=== PATIENT | female | born 1970 | race Caucasian/White ===

== ENCOUNTER 2020-03-12 07:00 | Day surgery (SDC) | payer OTHER ==
[2020-03-12] MEDS ORDERED: Ringers Lactate 1,000 ML IV ONE (07:29)
[2020-03-12] MEDS ORDERED: MIDAZOLAM HCL 2 MG/2 ML INJ ONE (08:47)
[2020-03-12] MEDS ORDERED: propofoL 200 MG/20 ML VIAL IV ONE (08:47)
[2020-03-12] MEDS ORDERED: FENTANYL CITR 100 MCG/2 ML ONE (08:47)
[2020-03-12] MEDS ORDERED: LIDOCAINE 2% MPF 5 ML VIAL ONE (08:48)
[2020-03-12] MEDS ORDERED: dexAMETHasone 10 MG/ML VIAL ONE (08:48)
[2020-03-12] MEDS ORDERED: ROCURONIUM 50 MG/5 ML VIAL IV ONE (08:48)
[2020-03-12] MEDS: LIDOCAINE 1% W/EPI 1:100,000 MDV 20 ML VIAL ONE ×2 (09:27→10:00)
[2020-03-12] MEDS: EPINEPHRINE/PF 1 MG/ML AMP ONE ×2 (09:27→10:10)
[2020-03-12] MEDS ORDERED: KETOROLAC 30 MG/ML INJ ONE (10:48)
[2020-03-12] MEDS ORDERED: ONDANSETRON 4 MG/2 ML VIAL ONE (10:57)
[2020-03-12] MEDS ORDERED: PROMETHAZINE INJ 25 MG/ML AMP ONE (11:17)
[2020-03-12 11:40] VITALS: TEMP 97.5
[2020-03-12] MEDS ORDERED: IBUPROFEN 400 MG TAB ONE (12:07)
--- NOTE | 2020-03-12 12:10 | OP ---
Date of Procedure: 03/12/2020 Surgeon: Ina Kerr MD Preoperative Diagnosis: Right vocal cord polyp. Postoperative Diagnosis: Right vocal cord polyp. Procedure: Direct laryngoscopy with removal of vocal polyp and repair via a tissue flap. Indication For Procedure: Ms. 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 She c ontinues to smoke, but due to symptoms of airway obstruction, I recommended removal of the polyp. Th e risks, benefits, and alternatives to the procedure were discussed with the patient who agreed to pr oceed. The patient was brought to the operating room. She was placed under general anesthesia via o ral endotracheal tube. A gauze was applied to her upper gingiva as she was edentulous of her maxilla . The Nela-Ber laryngoscope fitted with a 15-degree telescope was used to perform a direct laryn goscopy. The vallecula, epiglottis, piriform sinus, and posterior pharyngeal wall were all unremarka ble. The vocal cords were obscured by a large round smooth polyp appearing mass. After placing the laryngoscope into suspension, suction and laryngeal alligator were used to carefully probe and feel a round the polyp confirming its attachment on the superior surface of the right true vocal fold. A sm all amount of lidocaine with epinephrine was injected at the attachment point via a laryngeal syringe . The posterior aspect of the polyp was grasped and a straight and curved laryngeal scissors were us ed to gently dissect the polyp from its superior attachment point. The polyp contents were carefully removed with a small cup forceps, creating a tissue flap from the inferiormost aspect of the polyp t o mucosal surface. This was gently laid across the defect. Application of an epinephrine-soaked ple dget was used to provide hemostasis. Photodocumentation was obtained. The subglottis, glottis, and supraglottic areas were suctioned from blood and secretions. Instrumentation was all removed. The p atient's mouth was reinspected. There was no additional damage to the patient's lips, gingiva, or to ngue, or lower teeth. The previously noted laceration of the right upper gingiva was hemostatic. Th e patient was then returned to care of Anesthesia for awakening and extubation in the operating room. Disposition: The patient will be discharged home with strict voice rest and is strongly encouraged f or complete tobacco cessation. We discussed that continued tobacco use will almost certainly result in complications and recurrence of her laryngeal polyp. CARMITA/SILVER Voice ID: [id number] Report ID: [id number]
[2020-03-12 13:15] VITALS: BP 127/67; O2SAT 97
--- OUTSIDE RECORDS SUMMARY | 2020-03-17 18:23 | XMS REPORT | Continuity of Care Document ---
:1970 Author Organization [facility] t Address [address] [place] [address] Care Team Providers Name Role Phone Kenzie Moreno MD Attending Clinician Antolin THOMAS, K.H. Attending Clinician Problems This patient has no known problems. Allergies, Adverse Reactions, Alerts This patient has no known allergies or adverse reactions. Medications This patient has no known medications. Procedures This patient has no known procedures. Encounters Start End Encounter Admission Attending Care Care Encounter Source Date/Time Date/Time Type Type Clinicians Facility Department ID 2020-03-15 2020-03-15 Refill FLORENCIO Moreno [id number] 00:00:00 00:00:00 [employer] [id number] [place] [id number] [facility] [phone] nal 044 Office [address] 2020-02-27 2020-02-27 Office FLORENCIO Dangelo [id number] 10:59:25 11:39:08 Visit Montserrat Wood [id number] [place] [id number] [facility] [phone] nal 059 Building Results This patient has no known results.
--- OUTSIDE RECORDS SUMMARY | 2020-03-17 18:23 | XMS REPORT | Summary of Care ---
:1970 Author Organization [facility] Address [address] [place] [address] Care Team Providers Name Role Phone Kenzie Moreno MD Primary Care Provider Encounter Details Date Type Department Care Team Description 12/25/2019 Prep For Surgery [facility]- Gia Mcginnis, Screening for [facility] colorectal cancer [address] [address] [address] [facility] ([address] [facility] [address] [place] [address] [phone] Allergies No Known Allergiesdocumented as of this encounter (statuses as of 12/25/2019) Medications Medication Sig Dispensed Refills Start Date End Date Status calcipotriene (DOVONEX) Apply to area(s) 60 g 2 11/24/19 20 Active 0.005 % 2 (two) times creamIndications: daily. Psoriasis telmisartan 40 mg Take 1 tablet by 30 tablet 5 11/24/2019 Active tabletIndications: mouth daily. Essential hypertension citalopram 10 mg Take 1 tablet by 30 tablet 2 11/24/2019 Active tabletIndications: mouth daily. Anxiety and depression peg-electrolyte soln Take 4,000 mL by 4000 mL 0 12/25/2019 Active [id number] -5.86 mouth gram SEE-INSTRUCTIONS. solutionIndications: Take as directed Screening for colorectal cancer documented as of this encounter (statuses as of 12/25/2019) Active Problems Problem Noted Date Abnormal LFTs 12/01/2019 Mixed hyperlipidemia 12/01/2019 Abnormal EKG 11/25/2019 Tobacco dependence 11/24/2019 Obesity (BMI 30-39.9) 06/11/2016 HTN (hypertension) Anxiety and depression documented as of this encounter (statuses as of 12/25/2019) Social History Tobacco Use Types Packs/Day Years Used Date Current Every Day Smoker Cigarettes 1 15 Smokeless Tobacco: Never Used Alcohol Use Drinks/Week oz/Week Comments Not Currently Sex Assigned at Date Recorded Not on file Job Start Date Occupation Industry Not on file Not on file Not on file Travel History Travel Start Travel End No recent travel history available. COVID-19 Exposure Response Date Recorded In the last month, have you been in contact with No / Unsure 12/25/2019 2:09 PM CDT someone who was confirmed or suspected to have Coronavirus / COVID-19? documented as of this encounter Last Filed Vital Signs Not on filedocumented in this encounter Plan of Treatment Date Type Specialty Care Team Description 01/02/2020 Cable Television Technician Visit [facility]iology [facility], [facility] Vascular Room 1 - 01/05/2020 Laboratory Only Cardiology Pc, Adc Echo Room 1 - 01/05/2020 Office Visit Family Medicine Marilu Moreno MD [address] [phone] 04/30/2020 Office Visit Cardiology Montserrat Dangelo MD [address] [phone] Health Maintenance Due Date Last Done Comments PAP SMEAR 1989 Breast Cancer Screening 2008 (MAMMOGRAM) COLONOSCOPY 2018 INFLUENZA VACCINE (#1) 2020 DTaP,Tdap,and Td Vaccines (1 02/24/2020 Pos tponed from 09/19/1979 - Tdap) (Alternative Edil delines) PNEUMOCOCCAL 0-64 YEARS 02/24/2020 Postpone d from 1974 COMBINED SERIES (1 of 1 - (Alter chene[place] Guidelines) PPSV23) Zoster Recombinant Vaccine 02/24/2020 Postp oned from 2018 (SHINGRIX) (1 of 2) (Alternative Guidelines) Depression Screening 11/23/2020 11/24/2019, 11/24/2019 documented as of this encounter Results Not on filedocumented in this encounter Visit Diagnoses Diagnosis Screening for colorectal cancer - Primar y Special screening for malignant neoplasm s, colon documented in this encounter Insurance Payer Benefit Plan / Subscriber ID Effective Dates Phone Addre ss Type Group [facility] [id number] [facility] PPO t S documented as of this encounter
--- OUTSIDE RECORDS SUMMARY | 2020-03-17 18:23 | XMS REPORT | Summary of Care ---
:1970 Author Organization [facility] Address [address] [place] [address] Care Team Providers Name Role Phone Kenzie Moreno MD Primary Care Provider Reason for Visit Reason Comments ULTRASOUND (Routine) Status Reason Specialty Diagnoses / Procedures Referred By C ontact Referred To Contact Closed Cardiology Diagnoses Stenosis of carotid artery, unspecified laterality Josh Wondiful Procedures CAROTID DUPLEX BILATERAL BY VASCULAR LAB MD Kenzie [address] [place] [address] [facility] [place] [address] Phone: Encounter Details Date Type Department Care Team Description 01/02/2020 Hoof And Shoe Inspector Visit [facility] Montserrat Dangelo MD [address] [address] Stenosis of carotid Cardiology- [facility], [facility] Vascular Room 1 - artery, unspecified [address] [place] [address] Drive, [address] [place] [address] Allergies No Known Allergiesdocumented as of this encounter (statuses as of 01/02/2020) Medications Medication Sig Dispensed Refills Start Date [...] as of this encounter (statuses as of 01/02/2020) Active Problems Problem Noted Date Screening for colorectal cancer 12/26/2019 Overview: Added automatically from request for jacobo carr [id number] Abnormal LFTs 12/01/2019 Mixed hyperlipidemia 12/01/2019 Abnormal EKG 11/25/2019 Tobacco dependence 11/24/2019 Obesity (BMI 30-39.9) 06/11/2016 HTN (hypertension) Anxiety and depression documented as of this encounter (statuses as of 01/02/2020) Social History Tobacco Use Types Packs/Day Years [...] been in contact with No / Unsure 01/02/2020 9:22 AM CDT someone who was confirmed or suspected to have Coronavirus / COVID-19? documented as of this encounter Last Filed Vital Signs Not on filedocumented in this encounter Plan of Treatment Date Type Specialty Care Team Description 01/05/2020 Office Visit Family Medicine Rema Moreno MD [address] [facility] [place] [phone] 01/05/2020 Office Visit Cardiology Montserrat Dangelo MD [address] [facility] [address] [place] [address] 01/05/2020 Laboratory Only Cardiology Pc, Adc Echo Room 1 - 01/08/2020 Laboratory Only Clinical Medical Only, Adc Test Laboratory 01/09/2020 Hospital Encounter Surgery Vivian Gould Scre ening for colorectal cancer [address] [facility] [address] [place] [address] [phone] 01/09/2020 Anesthesia Event Surgery Barney Nioclas, [address] [phone] 01/09/2020 Surgery Surgery Vivian Gould, COLONOSCOP Y [address] [facility] [address] [place] [address] [phone] 02/03/2020 Office Visit Obstetrics & AdumCelia MD Gynecology [address] [place] [address] 04/30/2020 Office Visit Cardiology Montserrat Dangelo MD [address] [facility] [address] [place] [address] Health Maintenance Due Date Last Done Comments PAP SMEAR 1989 Breast Cancer Screening 2008 (MAMMOGRAM) COLONOSCOPY 2018 INFLUENZA VACCINE (#1) 2020 DTaP,Tdap,and Td Vaccines (1 02/24/2020 Pos tponed from 09/19/1979 - Tdap) (Alternative Edil delines) PNEUMOCOCCAL 0-64 YEARS 02/24/2020 Postpone d from 1974 COMBINED SERIES (1 of 1 - (Alter k[place] Guidelines) PPSV23) Zoster Recombinant Vaccine 02/24/2020 Postp oned from 2018 (SHINGRIX) (1 of 2) (Alternative Guidelines) Depression Screening 11/23/2020 11/24/2019, 11/24/2019 documented as of this encounter Results Not on filedocumented in this encounter Visit Diagnoses Diagnosis Stenosis of carotid artery, unspecified laterality documented in this encounter Insurance Payer Benefit Plan / Subscriber ID Effective Dates Phone Addre ss Type Group [facility] [id number] [facility] PPO t S documented as of this encounter
--- OUTSIDE RECORDS SUMMARY | 2020-03-17 18:23 | XMS REPORT | Summary of Care ---
:1970 Author Organization [facility] Address [address] [place] [id number] Care Team Providers Name Role Phone Kenzie Moreno MD Primary Care Provider Reason for Visit Reason Comments New Patient HEMORRHOIDS Referral/consult (Routine) Status Reason Specialty Diagnoses / Referred By Referred To Procedures Contact Contact Authorized Surgery Diagnoses Screening for colorectal cancer Hemorrhoids, unspecified hemorrhoid type Rema Moreno Lau rel, Procedures CONSULT/REFERRAL GENERAL SURGERY MD WILLIAM Espino [address] [place] [address] [place] [id number] Hair 2.100 Phone: Kenrick Grier Denisse [phone] Fax: Encounter Details Date Type Department Care Team Description 12/25/2019 Office Visit [facility] Surgical Vivian Gould, En counter for Specialties - [place] on screening colonoscopy [address], [address] [place] [address] (Primary Dx) [address] [place], [place] Hair 2.100 [id number] [place], [place] [phone] Allergies No Known Allergiesdocumented as of this encounter (statuses as of 12/25/2019) Medications Medication Sig Dispensed Refills Start Date End Date Status calcipotriene (DOVONEX) Apply to 60 g 2 11/24/2019 Active 0.005 % area(s) 2 (two) creamIndications: times daily. Psoriasis telmisartan 40 mg Take 1 tablet by 30 tablet 5 11/24/2019 Active tabletIndications: mouth daily. Essential hypertension citalopram 10 mg Take 1 tablet by 30 tablet 2 11/24/2019 Active tabletIndications: mouth daily. Anxiety and depression documented as of this [...] of this encounter Last Filed Vital Signs Vital Sign Reading Time Taken Comments Blood Pressure 132/80 12/25/2019 2:09 PM CDT Pulse 79 12/25/2019 2:09 PM CDT Temperature 37.1 C (98.8 F) 12/25/2019 2:09 PM CDT Respiratory Rate 18 12/25/2019 2:09 PM CDT Oxygen Saturation - - Inhaled Oxygen Concentration - - Weight 82.5 kg (181 lb 12.8 oz) 12/25/2019 2:09 PM CDT Height - - Body Mass Index 32.2 11/24/2019 11:32 AM CDT documented in this encounter Progress Notes Liza Garcia - 12/25/2019 2:00 PM CDT [facility] NOTE Date of Service: 12/25/2019 14:45 CC: Screening colonoscopy initial visit SUBJECT: Sommer Gutierrez is a 49 year old female with a PMH of anxiety, depression, HTN, and HLD who presents to clinic today for a screening colonoscopy pre-operative assessment. The patient denies any concerning bowel symptoms outside of occasional constipation and hemorrhoids.Blood is present in her stool approximately 1x per month only during hemorrhoid flares. The patient denies unintentional weight loss, fever, chills, N/V, abdominal pain, diarrhea, melena, or change in stool caliber. She has no knowledge of a family history of Chron's disease, ulcerative colitis, or colon cancer. CURRENT MEDICATIONS Prior to Admission medications Medication Sig Start Date End Date Taking? Authorizing Provider calcipotriene (DOVONEX) 0.005 % cream Apply to area(s) 2 (two) times daily. 11/24/19 Rema Moreno MD citalopram 10 mg tablet Take 1 tablet by mouth daily. 11/24/19 Rema Moreno MD telmisartan 40 mg tablet Take 1 tablet by mouth daily. 11/24/19 Rema Moreno MD All current in-house medications reviewed per EMR. ALLERGIES No Known Allergies PAST SURGICAL HISTORY Past Surgical History: Procedure Laterality Date SECTION HYSTERECTOMY PAST MEDICAL HISTORY Past Medical History: Diagnosis Date Abnormal EKG 11/25/2019 Anxiety and depression Cardiac arrest during delivery of child HTN (hypertension) Hypercholesterolemia Mixed hyperlipidemia 12/01/2019 Peptic ulcer disease FAMILY MEDICAL HISTORY Non-contributory to this encounter of SOCIAL HISTORY Social History Socioeconomic History Marital status: Spouse name: Not on file Number of children: Not on file Years of education: Not on file Highest education level: Not on file Occupational History Not on file Social Needs Financial resource strain: Not on file Food insecurity: Worry: Not on file Inability: Not on file Transportation needs: Medical: Not on file Non-medical: Not on file Tobacco Use Smoking status: Current Every Day Smoker Packs/day: 1.00 Years: 15.00 Pack years: 15.00 Types: Cigarettes Smokeless tobacco: Never Used Substance and Sexual Activity Alcohol use: Not Currently Drug use: Never Sexual activity: Not Currently Lifestyle Physical activity: Days per week: Not on file Minutes per session: Not on file Stress: Not on file Relationships Social connections: Talks on phone: Not on file Gets together: Not on file Attends jew service: Not on file Active member of club or organization: Not on file Attends meetings of clubs or organizations: Not on file Relationship status: Not on file Intimate partner violence: Fear of current or ex partner: Not on file Emotionally abused: Not on file Physically abused: Not on file Forced sexual activity: Not on file Other Topics Concern Not on file Social History Narrative Not on file REVIEW OF SYSTEMS Constitutional: no fever, chills HEENT: No headache, no vision changes CV: No chest pain Resp: No cough, no shortness of breath GI: No nausea, vomiting, diarrhea, constipation Neuro: No numbness, tingling Skin: No rash Endo: No heat or cold intolerance Musculoskeletal: No joint pain Heme: No easy bruising PREOPERATIVE RISK ASSESSMENT Diabetes Mellitus: negative Current Smoker w/ in 1 year: Yes (1ppd for 25 years) Functional Health Status: independent COPD: No Hypertension requiring meds: Yes, was prescribed a medication for HTN but was unable to have it filled Cancer: No >10% loss of body weight last 6 months: No Bleeding Disorders: No, not taking any blood thinners either PHYSICAL EXAM (-)=Negative,(+)=Positive BP 132/80 (BP Location: Left arm, Patient Position: Sitting, BP CUFF SIZE: Adult Medium) | Pulse 79 | Temp 37.1 C (98.8 F) (Temporal Artery) | Resp 18 | Wt 181 lb 12.8 oz (82.5 kg) | BMI 32.20kg/m Constitutional: alert, awake HEENT: normocephalic, no icterus, moist mucous membranes, Neck: full range of motion Respiratory: breathing is clear and easy Cardio: regular rate and rhythm Abdomen: soft, non distended, non-tender to palpation, normoactive bowel sounds. scar was without any defect. : not tested Rectal: not tested Extremities: no clubbing, cyanosis, or edema Skin: no rashes Neurologic: alert and oriented x 3 Pulses: Radial: Right- + Left- + ASSESSMENT/PLAN Patient Active Problem List Diagnosis Obesity (BMI 30-39.9) HTN (hypertension) Anxiety and depression Tobacco dependence Abnormal EKG Abnormal LFTs Mixed hyperlipidemia Sommer Gutierrez is a 49 year old female who presents for a screening colonoscopy pre-operative assessment. The patient denies unintended weight loss, abdominal pain, or other concerning bowel symptoms. Upon examination the patient's abdomen was soft, non-tender, non-distended, and without tenderness to palpation. The patient was educated about the effectiveness of alternatives to a screening colonoscopy and decided to proceed with a colonoscopy. The patient was educated on the risks and benefits ofundergoing a colonscopy and voiced her understanding. PLAN: Schedule screening colonoscopy RTC once procedure is complete to discuss results Vivian Gould MD - 12/25/2019 2:00 PM CDT GENERAL SURGERY CLINIC NOTE Reason for Visit / Chief Complaint: Screening colonsocopy History of Present Illness: Sommer Gutierrez is a 49 year old female with PMHx as below who presentsto discuss screening colonoscopy. She has not had a colonoscopy before. She reports having a daily BM with occasional constipation. She reports external hemorrhoids which developed during her last . She notes occasional blood in the stool with constipation and straining. She denies abdominal pain, nausea, vomiting, change in appetite, unintentional weight loss, change in bowel habits, or family history of colon cancer, Crohn's Disease, or ulcerative colitis. Patient was prescribed medications however she is not currently taking anything. Past Medical History: Past Medical History: Diagnosis Date Abnormal EKG 11/25/2019 Anxiety and depression Cardiac arrest during delivery of child HTN (hypertension) Hypercholesterolemia Mixed hyperlipidemia 12/01/2019 Peptic ulcer disease Past Surgical History: Past Surgical History: Procedure Laterality Date SECTION HYSTERECTOMY Allergies: No Known Allergies Medications: Patient's Medications START taking these medications No medications on file CONTINUE taking these medications which have NOT CHANGED CALCIPOTRIENE (DOVONEX) 0.005 % CREAM Apply to area(s) 2 (two) times daily. CITALOPRAM 10 MG TABLET Take 1 tablet by mouth daily. TELMISARTAN 40 MG TABLET Take 1 tablet by mouth daily. START taking Modified Medications as Prescribed No medications on file STOP taking these medications No medications on file Current Outpatient Medications Medication Sig Dispense Refill calcipotriene (DOVONEX) 0.005 % cream Apply to area(s) 2 (two) times daily. 60 g 2 citalopram 10 mg tablet Take 1 tablet by mouth daily. 30 tablet 2 telmisartan 40 mg tablet Take 1 tablet by mouth daily. 30 tablet 5 No current facility-administered medications for this visit. Family History: Family History Problem Relation Age of Onset Hemochromatosis Brother Diabetes Brother High cholesterol Brother Allergies Brother Diabetes Mother Hypertension Mother COPD (chronic obstructive pulmonary disease) Mother Autoimmune other Mother Lupus Stroke Father Diabetes Father Hypertension Father Social History: Social History Socioeconomic History Marital status: Spouse name: Not on file Number of children: Not on file Years of education: Not on file Highest education level: Not on file Occupational History Not on file Social Needs Financial resource strain: Not on file Food insecurity: Worry: Not on file Inability: Not on file Transportation needs: Medical: Not on file Non-medical: Not on file Tobacco Use Smoking status: Current Every Day Smoker Packs/day: 1.00 Years: 15.00 Pack years: 15.00 Types: Cigarettes Smokeless tobacco: Never Used Substance and Sexual Activity Alcohol use: Not Currently Drug use: Never Sexual activity: Not Currently Lifestyle Physical activity: Days per week: Not on file Minutes per session: Not on file Stress: Not on file Relationships Social connections: Talks on phone: Not on file Gets together: Not on file Attends jew service: Not on file Active member of club or organization: Not on file Attends meetings of clubs or organizations: Not on file Relationship status: Not on file Intimate partner violence: Fear of current or ex partner: Not on file Emotionally abused: Not on file Physically abused: Not on file Forced sexual activity: Not on file Other Topics Concern Not on file Social History Narrative Not on file Review of Systems: A 14 point ROS was obtained, only positive responses are in BOLD Constitutional: Fever, chills, loss of appetite, fatigue, unexplained weight loss, unexplained weight gain, weakness Head/Ears/Nose/Mouth/Throat: Head: Headache, head injury, neck pain, neck stiffness Ears: Ear discharge, hearing loss, ear pain, tinnitus Nose: Nose bleeds, sinus congestion, runny nose, postnasal drip, sneezing, sinus pressure Mouth: Dental problems, mouth sores, sore tongue, dry mouth Throat: Sore throat, trouble swallowing, voice change Eyes: Discharge, itching, pain, redness, pain, vision disturbance, blurred vision, vision loss, cataracts, glaucoma CV: Chest pain, palpitations, arrhythmias, dyspnea on exertion, othopnea, claudication, edema, coronary artery disease/history of [place] Respiratory: Cough, sputum production, hemoptysis, wheezing, shortness of breath, sleep apnea GI: See HPI : Frequency, urgency, pain or burning with urination, flank pain, hematuria, incontinence, change in urinary stream, discharge, bleeding, pelvic pain, irregular menses Musculoskeletal: Muscle pain, joint pain, joint swelling, back pain, stiffness, weakness, limitationof motion, arthritis, trauma Integumentary/Breast: Integumentary: Rash, itching, pigmented lesions, lumps, tenderness, swelling, wound Breast: Pain, lumps, nipple discharge, skin changes Neurological: Weakness, sensory changes, syncope, seizures, headache, numbness, tingling, tremor, trauma Hematologic/Lymphatic: Hematologic: Bleeding tendency, easy bruising, history of blood clots, anticoagulation/antiplatelet therapy Lymphatic: Lymphadenopathy Endocrine: Polyuria, polydipsia, polyphagia, heat or cold intolerance, hair loss, appetite changes Allergic/Immunologic: Allergic: Allergic reactions Immunologic: Recurrent infections Psychiatric: Agitation, confusion, decreased concentration, hallucinations, anxiety, self-injury, sleep disturbance, suicidal ideation Physical Exam: BP 132/80 (BP Location: Left arm, Patient Position: Sitting, BP CUFF SIZE: Adult Medium) | Pulse 79 | Temp 37.1 C (98.8 F) (Temporal Artery) | Resp 18 | Wt 82.5 kg (181 lb 12.8 oz) | BMI 32.20kg/m Constitutional: Awake, alert, oriented, in no acute distress Head: Normocephalic, atraumatic Eyes: Extraocular movements grossly intact, pupils equal and reactive to light and accomodation, anicteric sclerae Ears: Normal external exam Nose: Normal external exam Mouth: Moist mucous membranes Neck: Supple, no jugular venous distention Respiratory: No respiratory distress GI: Normoactive bowel sounds, soft, nontender, non-distended, healed Pfannenstiel scar Musculoskeletal: Normal tone and strength, normal range of motion Neurologic: CN II through XII grossly intact, no focal deficits Skin: Warm and dry, capillary refill <2 seconds, no jaundice, rashes, lesions, or erythema Hematologic/lymphatic: No cervical, axillary, or inguinal lymphadenopathy Psychiatric: Appropriate mood and affect, no obvious deficits of insight or judgment Labs: Results for SOMMER GUTIERREZ ( ) as of 12/25/2019 14:53 Ref. Range 11/24/2019 13:01 WBC x10^3 Latest Ref Range: 4.30 - 11.10 10*3/L 9.18 RBC x10^6 Latest Ref Range: 3.93 - 5.25 10*6/L 5.12 HGB Latest Ref Range: 11.6 - 15.0 g/dL 15.2 (H) HCT Latest Ref Range: 35.7 - 45.2 % 46.8 (H) MCV Latest Ref Range: 80.6 - 95.5 fL 91.4 MCH Latest Ref Range: 25.9 - 32.8 pg 29.7 MCHC Latest Ref Range: 31.6 - 35.1 g/dL 32.5 RDW-SD Latest Ref Range: 39.0 - 49.9 fL 44.6 RDW-CV Latest Ref Range: 12.0 - 15.5 % 13.1 PLT x10^3 Latest Ref Range: 166 - 358 10*3/L 251 MPV Latest Ref Range: 9.5 - 12.9 fL 9.9 NRBC /100 WBC Latest Ref Range: 0.0 - 10.0 /100 WBCs 0.0 NRBC x10^3 Latest Units: 10*3/L <0.01 Results for SOMMER GUTIERREZ ( ) as of 12/25/2019 14:53 Ref. Range 11/24/2019 13:01 NA Latest Ref Range: 135 - 145 mmol/L 139 K Latest Ref Range: 3.5 - 5.0 mmol/L 4.3 CL Latest Ref Range: 98 - 108 mmol/L 107 CO2 TOTAL Latest Ref Range: 23 - 31 mmol/L 25 AGAP Latest Ref Range: 2 - 16 7 BUN Latest Ref Range: 7 - 23 mg/dL 10 GLUCOSE Latest Ref Range: 70 - 110 mg/dL 116 (H) CREATININE Latest Ref Range: 0.50 - 1.04 mg/dL 0.52 eGFR CALCULATION (non ) Latest Units: mL/min/1.73m2 124.3 eGFR CALCULATION () Latest Units: mL/min/1.73m2 150.7 TOTAL BILI Latest Ref Range: 0.1 - 1.1 mg/dL 0.4 CHOL Latest Ref Range: 120 - 200 mg/dL 265 (H) TRIG Latest Ref Range: 30 - 170 mg/dL 226 (H) HDL CHOL Latest Ref Range: >50 mg/dL 49 (L) HDLC RATIO Latest Ref Range: <=4.5 5.4 (H) LDL CHOL Latest Ref Range: <=160 mg/dL 171 (H) VLDL Latest Ref Range: 5 - 60 mg/dL 45 IRON Latest Ref Range: 50 - 160 ug/dL 67 TIBC Latest Ref Range: 250 - 410 ug/dL 353 % FE SAT Latest Ref Range: 20 - 50 % 19 (L) CALCIUM Latest Ref Range: 8.6 - 10.6 mg/dL 9.9 T PROTEIN Latest Ref Range: 6.3 - 8.2 g/dL 7.7 ALBUMIN Latest Ref Range: 3.5 - 5.0 g/dL 4.4 HGB A1C Latest Ref Range: 4.0 - 6.0 % NGSP 5.6 Results for SOMMER GUTIERREZ ( ) as of 12/25/2019 14:53 Ref. Range 11/24/2019 13:01 ALK PHOS Latest Ref Range: 34 - 122 U/L 189 (H) ALTv Latest Ref Range: 5 - 35 U/L 49 (H) AST(SGOT) Latest Ref Range: 13 - 40 U/L 42 (H) Results for SOMMER GUTIERREZ ( ) as of 12/25/2019 14:53 Ref. Range 11/24/2019 13:01 TRANSFERRN Latest Ref Range: 168 - 336 mg/dL 249 ALPHA1 ANT Latest Ref Range: 83 - 199 mg/dL 176 Results for SOMMER GUTIERREZ ( ) as of 12/25/2019 14:53 Ref. Range 11/24/2019 13:01 FERRITIN Latest Ref Range: 11.0 - 264.0 ng/mL 37.8 TSH Latest Ref Range: 0.45 - 4.70 mIU/L 2.61 ALPHA1 ANT Latest Ref Range: 83 - 199 mg/dL 176 TRANSFERRN Latest Ref Range: 168 - 336 mg/dL 249 Results for SOMMER GUTIERREZ ( ) as of 12/25/2019 14:53 Ref. Range 11/24/2019 13:10 COLOR Latest Ref Range: Yellow Yellow APPEARANCE Latest Ref Range: Clear Clear SP GRAVITY Latest Ref Range: 1.003 - 1.030 1.016 PH Latest Ref Range: 4.8 - 8.0 6.0 PROTEIN Latest Ref Range: Negative Negative GLU U QUAL Latest Ref Range: Normal Normal KETONES Latest Ref Range: Negative Negative BILIRUBIN Latest Ref Range: Negative Negative BLOOD Latest Ref Range: Negative Negative UROBILIN Latest Ref Range: Normal Normal NITRITE Latest Ref Range: Negative Negative LEUK MARILYN Latest Ref Range: Negative Negative RBC/HPF Latest Ref Range: 0 - 3 HPF <1 WBC/HPF Latest Ref Range: 0 - 5 HPF <1 BACTERIA Latest Ref Range: Negative Negative SQ EPITH Latest Units: HPF 4 MUCOUS Latest Ref Range: Negative LPF Slight (A) Results for SOMMER GUTIERREZ ( ) as of 12/25/2019 14:53 Ref. Range 11/24/2019 13:01 HFE - 3 Mutations Latest Ref Range: Negative Negative Radiology: EXAM: XR CHEST 2 VW HISTORY: 49yo F smoker with worsening hoarseness. Want to r/o a lung mass. COMPARISON: Chest x-ray dated 09/19/2017. FINDINGS: The lungs are clear without evidence of consolidation, pleural effusion or pneumothorax. The cardiomediastinal silhouette is normal. Minimal dextrocurvature of the thoracic spine is noted. No acute osseous abnormality is identified. IMPRESSION No acute cardiopulmonary abnormality. Assessment: Sommer Gutierrez is a 49 year old female who presents for screening colonoscopy. Plan: 1. Schedule colonoscopy Risks including bleeding and perforation, benefits, alternatives of colonoscopy were discussed with the patient; all questions answered; informed consent obtained. Vivian Gould M.D. 12/25/2019 14:49 Giovana Ambrocio - 12/25/2019 2:00 PM Serina Dionna Gutierrez is a 49 year old female comes to clinic independent in ambulation for new patient colonoscopy consult and hemmorrhoids. Pt comes alone . Pt in NAD w/ pain reported 0/10. Pt preferred language is Samoan. Pt. denies fall in last 12 months. Allergies and medications reviewed and updated. [facility] #[id number] - [place] [address] [address] [facility] [place] [facility] [address] Giovana Campo 12/25/2019 2:10 PM documented in this encounter Plan of Treatment Date Type Specialty Care Team Description 01/02/2020 Parking Enforcement Officer Visit Cardiology Pc, Adc Vascular Room 1 - 01/05/2020 Laboratory Only Cardiology Pc, Adc Echo Room 1 - 01/05/2020 Office Visit Family Medicine Marilu Moreno MD [address] [place] [id number] [phone] 04/30/2020 Office Visit Cardiology Montserrat Dangelo MD [address] [place] [address] [place], [place] [phone] Health Maintenance Due Date Last Done Comments PAP SMEAR 1989 Breast Cancer Screening 2008 (MAMMOGRAM) COLONOSCOPY 2018 INFLUENZA VACCINE (#1) 2020 DTaP,Tdap,and Td Vaccines (1 02/24/2020 Pos tponed from 09/19/1979 - Tdap) (Alternative Edil delines) PNEUMOCOCCAL 0-64 YEARS 02/24/2020 Postpone d from 1974 COMBINED SERIES (1 of 1 - ([place] Guidelines) PPSV23) Zoster Recombinant Vaccine 02/24/2020 Postp oned from 2018 (SHINGRIX) (1 of 2) (Alternative Guidelines) Depression Screening 11/23/2020 11/24/2019, 11/24/2019 documented as of this encounter Results Not on filedocumented in this encounter Visit Diagnoses Diagnosis Encounter for screening colonoscopy - Pr imary Special screening for malignant neoplasm s, colon documented in this encounter Insurance Payer Benefit Plan / Subscriber ID Effective Dates Phone Addre ss Type Group [id number] [id number] [facility] [place] 2[place] PPO t S documented as of this encounter"
--- OUTSIDE RECORDS SUMMARY | 2020-03-17 18:23 | XMS REPORT | Summary of Care ---
:1970 Author Organization [facility] Address [address] [place] [address] Care Team Providers Name Role Phone Kenzie Moreno MD Primary Care Provider Reason for Referral Radiology Services (STAT) Status Reason Specialty Diagnoses / Referred By Referred To Procedures Contact Contact New Request Diagnostic Diagnoses Abnormal liver function tests Elevated alkaline phosphatase level Transaminitis Abdominal bloating Josh, Radiology Procedures US ABDOMEN COMPLETE Rema Espino MD [address] [place] [address] [place] [address] Reason for Visit Reason Comments Anxiety Hypertension patient did not get any of h er medications prescribed at last visit Encounter Details Date Type Department Care Team Description 01/05/2020 Office Visit [facility] Pediatric Rema Moreno bnormal liver function tests (Primary Dx); and Adult Primary MD Kenzie Essential hypertension; Care- [address] Anxiety and depression; [address], [place] Hoarseness [address], [address] [address] Tobacco dependency; [place], [place] [phone] Elevated alkaline phosphatase level; [id number] Transaminitis; [phone] Abdominal bloat ing; History of ches t pain Allergies No Known Allergiesdocumented as of this encounter (statuses as of 01/05/2020) Medications Medication Sig Dispensed Refills Start Date End Date Status calcipotriene Apply to 60 g 2 11/24/2019 Activ e (DOVONEX) 0.005 % area(s) 2 creamIndications: (two) times Psoriasis daily. citalopram 10 mg Take 1 tablet 30 tablet 2 11/24/2019 Active tabletIndications: by mouth Anxiety and daily. depression peg-electrolyte Take 4,000 mL 4000 mL 0 12/25/2019 Active soln [id number] by mouth -5.86 gram SEE-INSTRUCTIO solutionIndications NS. Take as : Screening for directed colorectal cancer telmisartan 40 mg Take 0.5 30 tablet 5 01/05/2020 A ctive tabletIndications: tablets by Essential mouth daily. hypertension telmisartan 40 mg Take 1 tablet 30 tablet 5 11/24/2019 020 Discontinued tabletIndications: by mouth Essential daily. hypertension documented as of this encounter (statuses as of 01/05/2020) Active Problems Problem Noted Date Screening for colorectal cancer 12/26/2019 Overview: Added automatically from request for jacobo carr [id number] Abnormal LFTs 12/01/2019 Mixed hyperlipidemia 12/01/2019 Abnormal EKG 11/25/2019 Tobacco dependence 11/24/2019 Obesity (BMI 30-39.9) 06/11/2016 HTN (hypertension) Anxiety and depression documented as of this encounter (statuses as of 01/05/2020) Social History Tobacco Use Types Packs/Day Years [...] been in contact with No / Unsure 01/05/2020 1:16 PM CDT someone who was confirmed or suspected to have Coronavirus / COVID-19? documented as of this encounter Last Filed Vital Signs Vital Sign Reading Time Taken Comments Blood Pressure 112/69 01/05/2020 12:05 PM CDT Pulse 67 01/05/2020 12:05 PM CDT Temperature 36.9 C (98.4 F) 01/05/2020 12:05 PM CDT Respiratory Rate - - Oxygen Saturation - - Inhaled Oxygen Concentration - - Weight 82.4 kg (181 lb 9.6 oz) 01/05/2020 12:05 PM CDT Height 160 cm (5' 3") 01/05/2020 12:05 PM CDT Body Mass Index 32.17 01/05/2020 12:05 PM CDT documented in this encounter Patient Instructions Patient InstructionsLizzy Jenkins R - 01/05/2020 11:30 AM CDT Patient Education Coronavirus Disease 2019 (COVID-19): Prevention The best prevention is to not have contact with the SARS-CoV-2 virus. There is no vaccine yet. Canceling travel and other outings Stay informed about COVID-19 in your area. Follow local instructions about being in public. Be awareof events in your community that may be postponed or canceled, such as school and sporting events. You may be advised not to attend public gatherings. You will be advised to stay at least 6 feet from others as much as possible. This is called "social distancing." You may be advised to stay at home and isolate yourself as much as possible if COVID-19 is in your area. You may hear terms such as "self isolate, "quarantine," stay at home, halfway in place, and lockdown. The CDC advises that people should not travel to areas where there are COVID-19 outbreaks right now for any reason that is not urgent. For the most current CDC travel advisories, visit the CDC website at www.cdc.gov/coronavirus/2019- ncov/travelers.Dont go on cruises or do non-essential travel right now. When you are at home Wash your hands often. Use soap and clean, running water for at least 20 seconds. If you don't have access to soap and water, use an alcohol-based hand broomcorn scraper often. Make sure it has at least 60% alcohol. Don't touch your eyes, nose, or mouth unless you have clean hands. Dont kiss someone who is sick. If you need to cough or sneeze, do it into a tissue. Then throw the tissue into the trash. If youdon't have tissues, cough or sneeze into the bend of your elbow. When possible, don't touch "high-touch" shared surfaces such as doorknobs and handles, cabinet handles, and light switches. Clean frequently-touched home surfaces often with disinfectant. This includes desk surfaces, printers, phones, kitchen counters, tables, fridge door handle, bathroom surfaces, and any soiled surface. Closely follow disinfectant label instructions. Go to the CDCs detailed cleaning website at www.c dc.gov/coronavirus/2019-ncov/prepare/cleaning-disinfection.html. Check your home supplies. Consider keeping a 2-week supply of medicines, food, and other needed household items. Make a plan for childcare, work, and ways to stay in touch with others. Know who will help you ifyou get sick. Don't be around people who are sick. There is no evidence right now that animals spread SARS-CoV-2. But it's always a good idea to wash your hands after touching any animals. Don't touch animals that may be sick. Dont share eating or drinking utensils with sick people. If you leave home Stay at least 6 feet away from all people. When possible, don't touch "high-touch" public surfaces such as doorknobs and handles, cabinet handles, and light switches. If you touch these surfaces, try to clean them first with a disinfecting wipe. Or touch them using a tissue or paper towel. Use an alcohol-based hand broomcorn scraper often. Make sure it has at least 60% alcohol. Don't touch your eyes, nose, or mouth unless you have clean hands. If you need to cough or sneeze, do it into a tissue. Then throw the tissue into the trash. If youdon't have tissues, cough or sneeze into the bend of your elbow. Avoid public gatherings. The CDC advises wearing a cloth face mask in public. During a public health emergency, medical face masks may be reserved for healthcare workers. You may need to make a cloth face mask of your own. You can do this using a bandana, T- shirt, or other cloth. The CDC has instructions on how to make a mask. If you are at a work site Stay at least 6 feet away from all people. Don't shake hands with anyone. Dont have in-person meetings. Meet over phone or video. Wash your hands often. Use soap and clean, running water for at least 20 seconds. If you don't have access to soap and water, use an alcohol-based hand broomcorn scraper often. Make sure it has at least 60% alcohol. Don't touch your eyes, nose, or mouth unless you have clean hands. The CDC advises wearing a cloth face mask in public. During a public health emergency, medical face masks may be reserved for healthcare workers. You may need to make a cloth face mask of your own. You can do this using a bandana, T- shirt, or other cloth. The CDC has instructions on how to make a mask. When possible, don't touch "high-touch" public surfaces such as doorknobs and handles, cabinet handles, and light switches. If you touch these surfaces, clean them first with a disinfecting wipe. Ortouch them using a tissue or paper towel. Use office orville one person at a time. Consider not having office coffee or tea, or group foods. Dont have meals in groups. Clean work surfaces often with disinfectant. This includes desk surfaces, photocopier, printer, phones, kitchen counters, fridge door handle, bathroom surfaces, and others. Dont touch other peoples personal work tools, such as phones, keyboards, pens, and other items. Dont touch other peoples eating or drinking utensils. If you need to cough or sneeze, do it into a tissue. Then throw the tissue into the trash. If youdon't have tissues, cough or sneeze into the bend of your elbow. If you feel sick in any way, go home and stay home. If you have been exposed to a person with COVID-19 If you've been exposed within that last 14 days to someone who is suspected of having COVID-19 or has tested positive for it: Call your healthcare provider and follow all instructions. Your activities and where you go likely will be restricted for up to 2 weeks. Check your community's instructions about activity restrictions. You may be directed to stay home, or "self-isolate." Take your temperature every morning and evening for at least 14 days. This is to check for fever.Keep a record of the readings. Watch for symptoms of the virus. Call your provider if you have symptoms. Call your provider first before going to any clinic or hospital. See the CDC's symptom credit report checker. Stay home if you are sick for any reason. When to call your healthcare provider Call your healthcare provider if think you have COVID-19 symptoms. These can include fever, cough, and trouble breathing. They may also include body aches, sore throat, or diarrhea. Dont go to a healthcare facility before speaking to a healthcare provider. Last modified date: 09/15/2019 Stuart copeland reviewed this educational content on 09/10/201919991909-6648 [employer]. [address] [place] [address], [place] [address]. All rights reserved. This information is not intended as a substitute for professional medical care. Always follow your healthcare professional's instructions. documented in this encounter Progress Notes Rema Moreno MD - 01/05/2020 11:30 AM CDT Cc: Chief Complaint Patient presents with Anxiety Hypertension patient did not get any of her medications prescribed at last visit HPI Zoya Rowell is a 49 year old female who presents today for anxiety and HTN f/u. She never picked-up the antihypertensive medication (telmisartan) prescribed to her last visit. She says her bloodpressure is "up and down" including spikes to the 160s systolic that cause her to feel "pressure in her head". She also has episodic chest pain and she is scheduled to see Cardiology this afternoon for evaluation of her abnormal EKG. She continues to have daily anxiousness and excessive worrying. She feels her chest pain is related to anxiety. She also never picked-up the medication (citalopram) prescribed to her last visit. Associated symptoms include dysphoric mood but she denies SI or HI. She continues to smoke and she isn't ready to quit. She c/o continued hoarseness of her voice. I referred her to ENT and she is scheduled to see Dr. Kerr in [place] next month. She had abnormal LFTs on her last labs but never had the f/u lab work or abdominal US done that I ordered. Allergies Zoya has No Known Allergies. Medications Outpatient Medications Prior to Visit Medication Sig Dispense Refill peg-electrolyte soln [id number] -5.86 gram solution Take 4,000 mL by mouth SEE-INSTRUCTIONS.Take as directed 4000 mL 0 calcipotriene (DOVONEX) 0.005 % cream Apply to area(s) 2 (two) times daily. 60 g 2 citalopram 10 mg tablet Take 1 tablet by mouth daily. 30 tablet 2 telmisartan 40 mg tablet Take 1 tablet by mouth daily. 30 tablet 5 No facility-administered medications prior to visit. Histories Past Medical History: Diagnosis Date Abnormal EKG 11/25/2019 Anxiety and depression Cardiac arrest during delivery of child HTN (hypertension) Hypercholesterolemia Mixed hyperlipidemia 12/01/2019 Peptic ulcer disease Past Surgical History: Procedure Laterality Date SECTION HYSTERECTOMY Social History Socioeconomic History Marital status: Spouse [...] file Gets together: Not on file Attends scientology service: Not on file Active member of [...] file Social History Narrative Not on file Family History Problem Relation Age of Onset Hemochromatosis Brother Diabetes Brother High cholesterol Brother Allergies Brother Diabetes Mother Hypertension Mother COPD (chronic obstructive pulmonary disease) Mother Autoimmune other Mother Lupus Stroke Father Diabetes Father Hypertension Father Review of Systems Constitutional: Negative. HENT: Negative. Eyes: Negative. Respiratory: Negative. Cardiovascular: Positive for chest pain. Gastrointestinal: Negative. Genitourinary: Negative. Skin: Negative. Neurological: Negative. Psychiatric/Behavioral: Negative. Endocrine: Endocrine negative Vital Signs BP 112/69 | Pulse 67 | Temp 36.9 C (98.4 F) (Tympanic) | Ht 5' 3" (1.6 m) | Wt 181 lb 9.6 oz(82.4 kg) | BMI 32.17 kg/m Physical Exam Constitutional: She is oriented to person, place, and time. She appears well- developed and well-nourished. No distress. HENT: Mouth/Throat: Mucous membranes are normal. Eyes: Conjunctivae are normal. No scleral icterus. Neck: Neck supple. No thyromegaly present. Cardiovascular: Normal rate, regular rhythm and intact distal pulses. Exam reveals no gallop and no friction rub. Murmur (II/ don) heard. Pulmonary/Chest: Effort normal and breath sounds normal. She has no wheezes. She has no rales. She exhibits no tenderness. Abdominal: Soft. Bowel sounds are normal. She exhibits no distension and no mass. There is no tenderness. Musculoskeletal: She exhibits no edema. Lymphadenopathy: She has no cervical adenopathy. Neurological: She is alert and oriented to person, place, and time. Skin: Skin is warm and dry. No rash noted. No pallor. Psychiatric: Her speech is normal and behavior is normal. Judgment and thought content normal. Her mood appears anxious. Cognition and memory are normal. Nursing note and vitals reviewed. Labs No visits with results within 1 Month(s) from this visit. Latest known visit with results is: [employer] Visit on 11/24/2019 Component Date Value NA 11/24/2019 139 K 11/24/2019 4.3 CL 11/24/2019 107 CO2 TOTAL 11/24/2019 25 AGAP 11/24/2019 7 BUN 11/24/2019 10 GLUCOSE 11/24/2019 116* CREATININE 11/24/2019 0.52 TOTAL BILI 11/24/2019 0.4 CALCIUM 11/24/2019 9.9 T PROTEIN 11/24/2019 7.7 ALBUMIN 11/24/2019 4.4 ALK PHOS 11/24/2019 189* ALTv 11/24/2019 49* AST(SGOT) 11/24/2019 42* eGFR Calculation (Non-Af* 11/24/2019 124.3 eGFR Calculation (Anum* 11/24/2019 150.7 CHOL 11/24/2019 265* HDL 11/24/2019 49* HDLC RATIO 11/24/2019 5.4* TRIG 11/24/2019 226* LDL CHOL 11/24/2019 171* VLDL 11/24/2019 45 HGB A1C 11/24/2019 5.6 TSH 11/24/2019 2.61 APPEARANCE 11/24/2019 Clear COLOR 11/24/2019 Yellow PH 11/24/2019 6.0 SP GRAVITY 11/24/2019 1.016 GLU U QUAL 11/24/2019 Normal BLOOD 11/24/2019 Negative KETONES 11/24/2019 Negative PROTEIN 11/24/2019 Negative UROBILIN 11/24/2019 Normal BILIRUBIN 11/24/2019 Negative NITRITE 11/24/2019 Negative LEUK MARILYN 11/24/2019 Negative RBC/HPF 11/24/2019 <1 WBC/HPF 11/24/2019 <1 BACTERIA 11/24/2019 Negative MUCOUS 11/24/2019 Slight* SQ EPITH 11/24/2019 4 HFE - 3 Mutations 11/24/2019 Negative FERRITIN 11/24/2019 37.8 IRON 11/24/2019 67 TIBC 11/24/2019 353 % FE SAT 11/24/2019 19* TRANSFERRN 11/24/2019 249 Anti-Trypsin 11/24/2019 176 WBC 11/24/2019 9.18 RBC 11/24/2019 5.12 HGB 11/24/2019 15.2* HCT 11/24/2019 46.8* MCV 11/24/2019 91.4 MCH 11/24/2019 29.7 MCHC 11/24/2019 32.5 RDW-SD 11/24/2019 44.6 RDW-CV 11/24/2019 13.1 PLT 11/24/2019 251 MPV 11/24/2019 9.9 NRBC/100 WBC 11/24/2019 0.0 NRBC x10^3 11/24/2019 <0.01 GRAN MAT (NEUT) % 11/24/2019 56.4 IMM GRAN % 11/24/2019 0.50 LYMPH % 11/24/2019 32.0 MONO % 11/24/2019 6.1 EOS % 11/24/2019 4.5 BASO % 11/24/2019 0.5 GRAN MAT x10^3(ANC) 11/24/2019 5.17 IMM GRAN x10^3 11/24/2019 0.05 LYMPH x10^3 11/24/2019 2.94 MONO x10^3 11/24/2019 0.56 EOS x10^3 11/24/2019 0.41* BASO x10^3 11/24/2019 0.05 Assessment/Plan Diagnoses and all orders for this visit: Anxiety and depression I encouraged her to go ahead and start the citalopram prescribed last visit right away. The patientdeclines referral for counseling or Psychiatry care at this time. I will continue to monitor the patient's progress. The patient understands she can follow-up sooner if her symptoms rebound or if other mental health issues develop. Essential hypertension Given the blood pressure continues to spike but is significantly better/normal today and she hasn't started telmisartan yet, I recommended that she start with the half dose of 20mg daily. I recommended a low sodium diet/DASH diet along with exercise per Coffee Attendant's recommendations as part of a heart healthy lifestyle. The patient was instructed to self monitor her blood pressure once- twice dailyvarying the times when it is checked and to bring the record of readings to each office visit. I recommended immediate ER evaluation for acute symptoms such as chest pain, SOB, syncope, etc. The patient was warned about the potential consequences of uncontrolled HTN including heart disease, renal failure, stroke, etc. - telmisartan 40 mg tablet; Take 0.5 tablets by mouth daily. Hoarseness I again recommended evaluation and management per ENT. See ENT as scheduled/planned. Smoking cessation was encouraged. Tobacco dependency Patient counseled and patient refused smoking cessation options. Abnormal liver function tests, Elevated alkaline phosphatase level, Transaminitis, Abdominal bloating I reviewed with the patient the Ddx of abnormal liver function tests including medications, fatty liver, EtOH use, medications, gallbladder/biliary disease, viral infections, autoimmune conditions, various genetic conditions such as hemochromatosis and alpha 1 antitrypsin deficiency, and other causes. The patient was counseled to avoid/limit hepatotoxic agents including EtOH. Further work-up was ordered as noted including more advanced lab work and imaging. I will decide on the need for specialist referral based on the results of the diagnostic testing. - US ABDOMEN COMPLETE; Future - SMOOTH MUSCLE AB, MITOCHONDRIAL M2 AB IGG, HEPATIC FUNCTION PANEL, HIV 1/2 AG- AB REFLEX, HEPATITISB SURFACE ANTIGEN, HEPATITIS B SURFACE ANTIBODY, HCV ANTIBODY, HAV ANTIBODY (IGG AND IGM), GAMMA GLUTAMYLTRANSFERASE, CERULOPLASMIN, ANTI-NUCLEAR ANTIBODY, ALPHA FETOPROTEIN, ALKALINE PHOSPHATASE ISOENZYME Plan of care, desired health behaviors, goals, Ddx, and any prescribed medications were discussed with the patient. This visit did not involve counseling and coordination that comprised more than 50% of the visit time. Education resources and self-management tools were provided and reviewed with the AVS. Patient/guardian/family verbalized understanding and agrees to the plan of care. Barriers tocare: None. Ability to manage care: Good. Advanced care planning (living will) information was not given/offered to the patient to review for discussion at a future visit. If applicable, the [facility] database was accessed to review any controlled substance prescription claims data. If the patient is taking prescribed medications, the Currently prescription claims data in [employer] was reviewed to assess patient compliance with the medication treatment plan. COVID-19 precautions given including frequent handwashing, social distancing, cleaning and disinfecting, indications for testing, etc. Follow-up: Return in about 3 months (around 04/06/2020) for anxiety and HTN follow-up. Follow-up sooner if any problems or concerns. Scribe Attestation Lizzy Burton , am scribing for, and in the presence of, Rema Moreno MD who performed the services described here-in. Lizzy Jenkins, January 05, 2020, 11:20 AM Physician Attestation Rema Burton MD, personally performed the services described in this documentation , as scribed by, Lizzy Jenkins in my presence and it is both accurate and complete. Rema Moreno MD January 05, 2020, 11:20 AM documented in this encounter Plan of Treatment Date Type Specialty Care Team Description 01/05/2020 Laboratory Only Cardiology Marilu Moreno MD [address] [place] [address] [place] [address] Pc, Adc Echo Room 1 - 01/09/2020 Hospital Encounter Surgery Vivian Gould Scre ening for colorectal cancer [address] [facility] [address] [place] [address] [phone] 01/09/2020 Anesthesia Event Surgery Barney Nicolas, [address] [phone] 01/09/2020 Surgery Surgery Vivian Gould, COLONOSCOP Y [address] [facility] [address] [place], [place] [address] 01/09/2020 Appointment Radiology Rema Moreno MD [address] [place] [address] 02/03/2020 Office Visit Obstetrics & Adum, Celia Mulligan MD Gynecology [address] [place] [address] Dr. Arndt [address] [place] [address] 04/05/2020 Office Visit Family Medicine Rema Moreno MD [address] [place] [address] 04/30/2020 Office Visit Cardiology Montserrat Dangelo MD [address] [facility] [address] [place] [address] Name Type Priority Associated Diagnoses Order S chedule US ABDOMEN COMPLETE IMAGING STAT Abnormal liver functi on Expected: 01/05/2020, tests Expires: 01/04/2021 Elevated alkaline phosphatase leve l Transaminitis Abdominal bloating Health Maintenance Due Date Last Done Comments PAP SMEAR 1989 Breast Cancer Screening 2008 (MAMMOGRAM) COLONOSCOPY 2018 INFLUENZA VACCINE (#1) 2020 DTaP,Tdap,and Td Vaccines (1 02/24/2020 Pos tponed from 09/19/1979 - Tdap) (Alternative Edil delines) PNEUMOCOCCAL 0-64 YEARS 02/24/2020 Postpone d from 1974 COMBINED SERIES (1 of 1 - (Alter [place] Guidelines) PPSV23) Zoster Recombinant Vaccine 02/24/2020 Postp oned from 2018 (SHINGRIX) (1 of 2) (Alternative Guidelines) Depression Screening 11/23/2020 11/24/2019, 11/24/2019 documented as of this encounter Results Not on filedocumented in this encounter Visit Diagnoses Diagnosis Abnormal liver function tests - Primary Other abnormal blood chemistry Essential hypertension Unspecified essential hypertension Anxiety and depression Dysthymic disorder Hoarseness Dysphonia Tobacco dependency Tobacco use disorder Elevated alkaline phosphatase level Other nonspecific abnormal serum enzyme levels Transaminitis Nonspecific elevation of levels of trans aminase or lactic acid dehydrogenase (LDH) Abdominal bloating Flatulence, eructation, and gas pain History of chest pain Personal history of other specified dise ases documented in this encounter Insurance Payer Benefit Plan / Subscriber ID Effective Dates Phone Addre ss Type Group [facility] [id number] [facility] PPO t S documented as of this encounter
--- OUTSIDE RECORDS SUMMARY | 2020-03-17 18:23 | XMS REPORT | Summary of Care ---
:1970 Author Organization [facility] Address [address] [place] [address] Care Team Providers Name Role Phone Kenzie Moreno MD Primary Care Provider Reason for Visit Reason Comments New Patient HEMORRHOIDS Referral/consult (Routine) Status Reason Specialty Diagnoses / Referred By Referred To Procedures Contact Contact Authorized Surgery Diagnoses Screening for colorectal cancer Hemorrhoids, unspecified hemorrhoid type Rema Moreno Lau rel, Procedures CONSULT/REFERRAL GENERAL SURGERY MD WILLIAM Espino [address] [place] [address] [place] [phone] Hair 2.100 Phone: Kenrick Grier Denisse [phone] Fax: Encounter Details Date Type Department Care Team Description 12/25/2019 Office Visit [facility] Surgical Vivian Gould, En counter for Specialties - [place] on screening colonoscopy [address], [address] [place] [address] (Primary Dx) [address] [place], [place] Hair 2.100 [address] [place], [place] [phone] Allergies No Known Allergiesdocumented as of [...] 1 tablet by mouth daily. 11/24/19 Rema Moreon MD All current in-house medications reviewed per [...] file Gets together: Not on file Attends jain service: Not on file Active member of [...] file Gets together: Not on file Attends jain service: Not on file Active member of [...] othopnea, claudication, edema, coronary artery disease/history of [place] Respiratory: Cough, sputum production, hemoptysis, wheezing, shortness [...] pain reported 0/10. Pt preferred language is Rwandan. Pt. denies fall in last 12 months. Allergies and medications reviewed and updated. [facility] [id number] - [place] [address] Esperanza CLARK AT [facility] Giovana Campo 12/25/2019 2:10 PM documented in this encounter Plan of Treatment Date Type Specialty Care Team Description 01/02/2020 Silvering Applicator Visit Cardiology Pc, Adc Vascular Room 1 - 01/05/2020 Laboratory Only Cardiology Pc, Adc Echo Room 1 - 01/05/2020 Office Visit Family Medicine Marilu Moreno MD [address] [place] [phone] 04/30/2020 Office Visit Cardiology Montserrat Dangelo MD [address] [place] [address] [place], [place] [phone] Health Maintenance Due Date Last Done Comments PAP SMEAR 1989 Breast Cancer Screening 2008 (MAMMOGRAM) COLONOSCOPY 2018 INFLUENZA VACCINE (#1) 2020 DTaP,Tdap,and Td Vaccines (1 02/24/2020 Pos tponed from 09/19/1979 - Tdap) (Alternative Edil delines) PNEUMOCOCCAL 0-64 YEARS 02/24/2020 Postpone d from 1974 COMBINED SERIES (1 of 1 - (Alter [place] Guidelines) PPSV23) Zoster Recombinant Vaccine 02/24/2020 Postp [...] Effective Dates Phone Addre ss Type Group [facility] [id number] [facility] PPO t S documented as of this encounter"
--- OUTSIDE RECORDS SUMMARY | 2020-03-17 18:24 | XMS REPORT | Summary of Care ---
:[address] [facility] Address [address] [place] [address] Care Team Providers Name Role Phone Kenzie Moreno MD Primary Care Provider Reason for Referral (Routine) Status Reason Specialty Diagnoses / Referred By Referred To Procedures Contact Contact New Request Cardiology Diagnoses Essential hypertension Abnormal EKG Montserrat Dangelo Procedures ECHO ROUTINE W/DOPPLER COLOR Preferred Location: [facility] MD Patty [address] [place] [address] Reason for Visit Reason Comments New Patient Establish Care/CP Encounter Details Date Type Department Care Team Description 01/05/2020 Office Visit [facility] Montserrat Dangelo SOSA (dyspnea on exertion) (Primary Dx); Cardiology- Israel Brambila MD Essential hypertension; [address] Abnormal EKG; Drive, [address] Atypical chest pain; [place], [place] Cigarette nicot ine dependence without complication; [phone] Dyslipidemia; [phone] Abnormal LFTs; Obesity ( BMI 30-39.9) Allergies No Known Allergiesdocumented as of this encounter (statuses as of 01/05/2020) Medications Medication Sig Dispensed Refills Start Date End Date Status calcipotriene (DOVONEX) Apply to area(s) 60 g 2 11/24/19 20 Active 0.005 % 2 (two) times creamIndications: daily. Psoriasis citalopram 10 mg Take 1 tablet by 30 tablet 2 11/24/2019 Active tabletIndications: mouth daily. Anxiety and depression peg-electrolyte soln Take 4,000 mL by 4000 mL 0 12/25/2019 Active 236-22.74-6.74 -5.86 mouth gram SEE-INSTRUCTIONS. solutionIndications: Take as directed Screening for colorectal cancer telmisartan 40 mg Take 0.5 tablets 30 tablet 5 01/05/2020 Active tabletIndications: by mouth daily. Essential hypertension documented as of this encounter (statuses as of 01/05/2020) Active Problems Problem Noted Date Screening for colorectal cancer 12/26/2019 Overview: Added automatically from request for jacobo carr [id number] Abnormal LFTs 12/01/2019 Mixed hyperlipidemia 12/01/2019 Abnormal [...] Sign Reading Time Taken Comments Blood Pressure 129/74 01/05/2020 1:17 PM CDT Pulse 72 01/05/2020 1:17 PM CDT Temperature - - Respiratory Rate 19 01/05/2020 1:17 PM CDT Oxygen Saturation 97% 01/05/2020 1:17 PM CDT Inhaled Oxygen Concentration - - Weight 82.7 kg (182 lb 6.4 oz) 01/05/2020 1:17 PM CDT Height 160 cm (5' 3") 01/05/2020 1:17 PM CDT Body Mass Index 32.31 01/05/2020 1:17 PM CDT documented in this encounter Progress Notes Montserrat Dangelo MD - 01/05/2020 1:[address] [facility] Cardiology Consult Note Patient: Zoya Rowell Date of : 1970 Date of service: 01/05/2020 Primary Care Physician: Rema Moreno CHIEF COMPLAINT: Chief Complaint Patient presents with New Patient Establish Care/CP HISTORY OF PRESENT ILLNESS: Zoya Rowell is a 49 year old female presented to the clinic for evaluation for Abn ECG. History from patient. Patient seen and examined in the room. Pertinent cardiac related history reviewed from chart. Risk factors: HTN, dyslipidemia, smoking,obese. SOSA NYHA Class II. Patient reports has been having chest pain, felt like tightness in her retrosternal area, lasted forfew mins to 1 hour, with anxiety as aggravating and rest as alleviating factors. No radiation. This has been going for last few months. No worsening. No chest pain at rest. No PND or orthopnea. No pedal edema. No exertional palpitations or palpitations at rest. No syncopal attacks. Previous Cardiac Studies: IMAGING - I personally reviewed, pertinent results as below: ECG 11/2019 Normal sinus rhythm Non-specific intraventricular block Anterolateral infarct age undetermined Abnormal ECG Carotid USG 12/2019 Interpretation Summary Duplex ultrasound was performed of the BILATERAL extracranial carotid arteries. No hemodynamically significant internal carotid artery disease bilaterally. The vertebral arteries are patent with antegrade flow. PAST MEDICAL HISTORY Past Medical History: Diagnosis Date Abnormal EKG 11/25/2019 Anxiety and depression Cardiac arrest during delivery of child HTN (hypertension) Hypercholesterolemia Mixed hyperlipidemia 12/01/2019 Peptic ulcer disease Past Surgical History: Procedure Laterality Date SECTION HYSTERECTOMY Family History Problem Relation Age of Onset Hemochromatosis Brother Diabetes Brother High cholesterol Brother Allergies Brother Diabetes Mother Hypertension Mother COPD (chronic obstructive pulmonary disease) Mother Autoimmune other Mother Lupus Stroke Father Diabetes Father Hypertension Father SOCIAL HISTORY Social History Socioeconomic History Marital [...] file Gets together: Not on file Attends spiritism service: Not on file Active member of [...] file Social History Narrative Not on file ALLERGIES No Known Allergies MEDICATIONS Patient's Medications START taking these medications No medications on file CONTINUE taking these medications which have NOT CHANGED CALCIPOTRIENE (DOVONEX) 0.005 % CREAM Apply to area(s) 2 (two) times daily. CITALOPRAM 10 MG TABLET Take 1 tablet by mouth daily. PEG-ELECTROLYTE SOLN 236-22.74-6.74 -5.86 GRAM SOLUTION Take 4,000 mL by mouth SEE-INSTRUCTIONS.Take as directed TELMISARTAN 40 MG TABLET Take 0.5 tablets by mouth daily. START taking Modified Medications as Prescribed No medications on file STOP taking these medications No medications on file Current Outpatient Medications: telmisartan 40 mg tablet, Take 0.5 tablets by mouth daily., Disp: 30 tablet, Rfl: 5 calcipotriene (DOVONEX) 0.005 % cream, Apply to area(s) 2 (two) times daily., Disp: 60 g, Rfl:2 citalopram 10 mg tablet, Take 1 tablet by mouth daily., Disp: 30 tablet, Rfl: 2 peg-electrolyte soln 236-22.74-6.74 -5.86 gram solution, Take 4,000 mL by mouth SEE-INSTRUCTIONS. Take as directed, Disp: 4000 mL, Rfl: 0 REVIEW OF SYSTEMS: Comprehensive 10-system review was conducted and were negative except for what's noted in the HPI. The following systems were reviewed: Constitutional, cardiovascular, respiratory, gastrointestinal, genitourinary, musculoskeletal, neurologic, psychiatric, endocrinological, and hematological. PHYSICAL EXAMINATION: Vitals: 01/05/20 1317 BP: 129/74 BP Location: Left arm Patient Position: Sitting BP CUFF SIZE: Adult Large Pulse: 72 Resp: 19 SpO2: 97% Weight: 182 lb 6.4 oz (82.7 kg) Height: 5' 3" (1.6 m) General: no apparent distress HEENT: normocephalic atraumatic Neck: supple, no lymphadenopathy, no bruits, no JVD Lungs: clear to auscultation bilaterally. No wheezes or rhonchi. No increased work of breathing. Cardio: Regular rate and rhythm, S1&S2 normal, no murmurs, rubs or gallops Abdomen: soft; non-tender; non-distended; normoactive bowel sounds. : not examined Rectal: not examined Extremities: no clubbing, cyanosis, or edema. Skin: no rashes, no visible lesions. Neuro: no gross focal deficits LABS - Reviewed pertinent labs as below: CBC BMP PT/INR WBC (10*3/L) Date Value 11/24/2019 9.18 NA (mmol/L) Date Value 11/24/2019 139 No results found for: PT PLT (10*3/L) Date Value 11/24/2019 251 K (mmol/L) Date Value 11/24/2019 4.3 No results found for: PTINR HGB (g/dL) Date Value 11/24/2019 15.2 (H) BUN (mg/dL) Date Value 11/24/2019 10 HCT (%) Date Value 11/24/2019 46.8 (H) CREATININE (mg/dL) Date Value 11/24/2019 0.52 LIPID PROFILE GLUCOSE (mg/dL) Date Value 11/24/2019 116 (H) CHOL (mg/dL) Date Value 11/24/2019 265 (H) TSH LDL CHOL (mg/dL) Date Value 11/24/2019 171 (H) TSH (mIU/L) Date Value 11/24/2019 2.61 CARDIAC ENZYMES HDL (mg/dL) Date Value 11/24/2019 49 (L) No results found for: CK TRIG (mg/dL) Date Value 11/24/2019 226 (H) LFTs No results found for: CKMB AST(SGOT) (U/L) Date Value 11/24/2019 42 (H) No results found for: TROPNI ALTv (U/L) Date Value 11/24/2019 49 (H) No results found for: BNP LDL CHOL (mg/dL) Date Value 11/24/2019 171 (H) There are no current results on file for these tests and/or test for 1 year. Recent Labs 11/24/19 1301 TRIG 226* LDL CHOL (mg/dL) Date Value 11/24/2019 171 (H) No results found for: NTBNP ASSESSMENT/PLAN 1. SOSA (dyspnea on exertion) 2. Essential hypertension ECHO ROUTINE W/DOPPLER COLOR Preferred Location: [facility] 3. Abnormal EKG ECHO ROUTINE W/DOPPLER COLOR Preferred Location: [facility] 4. Atypical chest pain 5. Cigarette nicotine dependence without complication 6. Dyslipidemia 7. Abnormal LFTs 8. Obesity (BMI 30-39.9) ECG/carotid USG done was reviewed with her. Chest pain: atypical by history but she does have sig cardiac risk factors No prior ECG to compare. Will get Dr Cramer records (Echo, ECG and Stress test). Forms signed. In view of symptoms of SOSA NYHA Class II/chest pain, recommended echo to assess for structural abnormalities in terms of regional wall abnormalities, VHD, diastolic dysfunction and RV function. If ECG change new, then would recommend Ex NM Stress test after ECG review. Start ASA 81 mg daily. SOSA NYHA Class II: Multifactorial: Obese, HTN, diastolic dysfunction, deconditioning, smoking Echo as above. May need stress test. HTN: Currently on Telmisartan 40 mg daily. Home BP log recommended. Cross check his BP machine. Appropriate ways to check home BP discussed. Goals BP < 130/80 stressed. Explained if BP > 130/80, adviced to send us the log. Lifestyle modifications stressed. Dyslipidemia: Recommended to keep LDL < 100. Lifestyle modifications stressed. No change in 3-6 months, then will start Statins. LDL CHOL (mg/dL) Date Value 11/24/2019 171 (H) Abn LFTs: Follows PCP. Follow up in 6 weeks. The 10-year ASCVD risk score (Ravindra VALERIO Jr., et al., 2013) is: 8.3% Values used to calculate the score: Age: 49 years Sex: Female Is Non- : No Diabetic: No Tobacco smoker: Yes Systolic Blood Pressure: 129 mmHg Is BP treated: Yes HDL Cholesterol: 49 mg/dL Total Cholesterol: 265 mg/dL Orders Placed This Encounter Procedures ECHO ROUTINE W/DOPPLER COLOR Preferred Location: [facility] Requested Prescriptions No prescriptions requested or ordered in this encounter Patient's diease process and its evaluation and treatment were discussed. We discussed each of for cardio vascular-related problems and discussed long-term goals and expectations for the each problem.I reviewed each of the cardiac medications in detail. Given the patient's risk factor profile, and clinical symptoms, we discussed options for further assessment. The diagnostic accuracy and limitation of stress testing for identification of coronary artery disease were reviewed in detail. Specifically, for Ex TMT, sestamibi and stress echo testing and stressed the need for stress testing were reviewed. After discussion of the diagnostic accuracy and limitation of stress testing for identification of coronary disease, stress study is being arranged with further management will be based upon findings of the testing. Reviewed the medication with patient in detail recommended to continue taking the current medications without further changes other than changes mentioned above. Recommended goal BP < 130/80 consistently, LDL << 100, HbA1c < 6.5. Recommended, explained and stressed the importance of healthy eating habits and exercises and lifestyle modifications Follow up as planned is predicated on symptoms stability and/or acceptable test results. Patient is urged to call in sooner should problems arise or if there is no improvement in cardiac symptoms. ER warning signs and symptoms explained and patient verbalized understanding. My diagnostic impression and treatment plans were discussed at length with the patient. All side effects as well as drug-drug interactions and risks discussed at length. Ample opportunity was offered and encouraged to ask questions during this visit and patient appreciated the answers given by me andgraciela statisfcation in the answers given. We reviewed the [place] [employer] recommendations for reduction of overall cardio vascular risk. The importance of monitoring the blood pressure carefully both at home on regular basis along with other physicians appointment was stressed in detail. In addition we discussed target LDL levels for optimal risk reduction. It was advised that to daily physical activity be performed with 30 minutes of sustained exercise for both cardio vascular fitness and improvement for generalized medical health and well-being. Thank you for allowing us to participate in the care of Zoya Rowell. If you have any questions or concerns please feel free to call our office at [phone]. I would be happy to be of further assistance for Zoya Rowell caesar. Johnny Dangelo MD Photographic Equipment Technician, Division of Cardiology [facility] documented in this encounter Plan of Treatment Date Type Specialty Care Team Description 01/05/2020 Laboratory Only Cardiology Marilu Moreno MD [address] [place] [address] [place] [phone] Pc, Adc Echo Room 1 - 01/09/2020 Hospital Encounter Surgery Vivian Gould, Scre ening for colorectal cancer [address] [facility] [address] [place], [place] [phone] 01/09/2020 Anesthesia Event Surgery Barney Nioclas[address] [phone] 01/09/2020 Surgery Surgery Vivian Gould, COLONOSCOP Y [address] [facility] [address] [place], [place] [address] 01/09/2020 Appointment Radiology Rema Moreno MD [address] [place] [place] [phone] 02/03/2020 Office Visit Obstetrics & AdumCelia MD Gynecology [address] [place] [address] Dr. Ar[address] [place] [phone] 04/05/2020 Office Visit Family Medicine Rema Moreno MD [address] [place] [place] [phone] 04/30/2020 Office Visit Cardiology Montserrat Dangelo MD [address] [place] [phone] Health Maintenance Due Date Last Done Comments PAP SMEAR 1989 Breast Cancer Screening 2008 (MAMMOGRAM) COLONOSCOPY 2018 INFLUENZA VACCINE (#1) 2020 DTaP,Tdap,and Td Vaccines (1 02/24/2020 Pos tponed from 09/19/1979 - Tdap) (Alternative Edil delines) PNEUMOCOCCAL 0-64 YEARS 02/24/2020 Postpone d from 1974 COMBINED SERIES (1 of 1 - (Alter [place] Guidelines) PPSV23) Zoster Recombinant Vaccine 02/24/2020 Postp oned from 2018 (SHINGRIX) (1 of 2) (Alternative Guidelines) Depression Screening 11/23/2020 11/24/2019, 11/24/2019 documented as of this encounter Results Not on filedocumented in this encounter Visit Diagnoses Diagnosis SOSA (dyspnea on exertion) - Primary Other dyspnea and respiratory abnormalit y Essential hypertension Unspecified essential hypertension Abnormal EKG Nonspecific abnormal electrocardiogram ( ECG) (EKG) Atypical chest pain Other chest pain Cigarette nicotine dependence without co mplication Tobacco use disorder Dyslipidemia Other and unspecified hyperlipidemia Abnormal LFTs Other abnormal blood chemistry Obesity (BMI 30-39.9) Obesity, unspecified documented in this encounter Insurance Payer Benefit Plan / Subscriber ID Effective Dates Phone Addre ss Type Group [facility] [id number] [facility] P[facility] t S documented as of this encounter
--- OUTSIDE RECORDS SUMMARY | 2020-03-17 18:24 | XMS REPORT | Summary of Care ---
:1970 Author Organization [facility] Address [address] [place] [address] Care Team Providers Name Role Phone Kenzie Moreno MD Primary Care Provider Encounter Details Date Type Department Care Team Description 01/05/2020 Laboratory Only [facility] Marilu Moreno MD [address] [place] [phone] Essential hypertension; Cardiology- [place] [facility], Adc Echo Room 1 - Abnormal EKG [address], [address] [place] [address] Allergies No Known Allergiesdocumented as [...] Overview: Added automatically from request for jacobo lilly [id number] Abnormal LFTs 12/01/2019 Mixed hyperlipidemia 12/01/2019 Abnormal [...] Time Taken Comments Blood Pressure 129/74 01/05/2020 3:12 PM CDT Pulse 72 01/05/2020 3:12 PM CDT Temperature - - Respiratory Rate - - Oxygen Saturation - - Inhaled Oxygen Concentration - - Weight 82.1 kg (181 lb) 01/05/2020 3:12 PM CDT Height 160 cm (5' 3") 01/05/2020 3:12 PM CDT Body Mass Index 32.06 01/05/2020 3:12 PM CDT documented in this encounter Plan of Treatment Date Type Specialty Care Team Description 01/09/2020 Hospital Encounter Surgery Vivian Gould, Scre ening for MD colorectal cancer [address] [facility] [address] [place], [place] [phone] 01/09/2020 Anesthesia Event Surgery Barney Nicolas[address] [phone] 01/09/2020 Surgery Surgery Vivian Gould, COLONOSCOP Y [address] [facility] [address] [place], [place] [address] 01/09/2020 Appointment Radiology Rema Moreno MD [address] [place] [phone] 02/03/2020 Office Visit Obstetrics & Adum, Celia Mulligan MD Gynecology [address] [place] [address] Dr. Ar[address] [place] [phone] 02/27/2020 Office Visit Cardiology Montserrat Dangelo MD [address] [place] [phone] 04/05/2020 Office Visit Family Medicine Rema Moreno MD [address] [place] [address] 04/30/2020 Office Visit Cardiology Montserrat Dangelo MD [address] AR[address] [place] [phone] Health Maintenance Due Date Last Done Comments PAP SMEAR 1989 Breast Cancer Screening 2008 (MAMMOGRAM) COLONOSCOPY 2018 INFLUENZA VACCINE (#1) 2020 DTaP,Tdap,and Td Vaccines (1 02/24/2020 Pos tponed from 09/19/1979 - Tdap) (Alternative Edil delines) PNEUMOCOCCAL 0-64 YEARS 02/24/2020 Postpone d from 1974 COMBINED SERIES (1 of 1 - (Alter [place] Guidelines) PPSV23) Zoster Recombinant Vaccine 02/24/2020 Postp oned from 2018 (SHINGRIX) (1 of 2) (Alternative Guidelines) Depression Screening 11/23/2020 11/24/2019, 11/24/2019 documented as of this encounter Results Not on filedocumented in this encounter Visit Diagnoses Diagnosis Essential hypertension Unspecified essential hypertension Abnormal EKG Nonspecific abnormal electrocardiogram ( ECG) (EKG) documented in this encounter Insurance Payer Benefit Plan / Subscriber ID Effective Dates Phone Addre ss Type Group [facility] [id number] 2019-[facility] PPO t S documented as of this encounter
--- OUTSIDE RECORDS SUMMARY | 2020-03-17 18:24 | XMS REPORT | Summary of Care ---
:[address] [facility] Address [address] [place] [address] Care Team Providers Name Role Phone Kenzie Moreno MD Primary Care Provider Reason for Referral (Routine) Status Reason Specialty Diagnoses / Referred By Referred To Procedures Contact Contact New Request Cardiology Diagnoses Essential hypertension Abnormal EKG Montserrat Dangelo Procedures ECHO ROUTINE W/DOPPLER COLOR Preferred Location: [facility] MD Patty [address] [place] [address] Reason for Visit Reason Comments New Patient Establish Care/CP Encounter Details Date Type Department Care Team Description 01/05/2020 Office Visit [facility] Montserrat Dangelo SOSA (dyspnea on exertion) (Primary Dx); Cardiology- Israel Brambila MD Essential hypertension; [address] Abnormal EKG; Drive, [address] Atypical chest pain; [place], [place] Cigarette nicot ine dependence without complication; [phone] Dyslipidemia; [phone] Abnormal LFTs; Obesity ( BMI 30-39.9) Allergies [...] Added automatically from request for jacobo carr [id number] Abnormal LFTs 12/01/2019 Mixed hyperlipidemia 12/01/2019 Abnormal [...] 01/05/2020 1:[address] [facility] Cardiology Consult Note Patient: Zoya [...] file Gets together: Not on file Attends christianity service: Not on file Active member of [...] hypertension ECHO ROUTINE W/DOPPLER COLOR Preferred Location: [facility] 3. Abnormal EKG ECHO ROUTINE W/DOPPLER COLOR Preferred Location: [facility] 4. Atypical chest pain 5. Cigarette [...] Procedures ECHO ROUTINE W/DOPPLER COLOR Preferred Location: [facility] Requested Prescriptions No prescriptions requested or [...] in the answers given. We reviewed the [place] Heart Association recommendations for reduction of overall [...] feel free to call our office at [phone]. I would be happy to be of further assistance for Zoya Rowell caesar. Johnny Dangelo MD Blending Supervisor, Division of Cardiology [facility] documented in this encounter Plan of Treatment Date Type Specialty Care Team Description 01/05/2020 Laboratory Only Cardiology Marilu Moreno MD [address] [place] [address] [place] [phone] Pc, Adc Echo Room 1 - 01/09/2020 Hospital Encounter Surgery Vivian Gould, Scre ening for colorectal cancer [address] [facility] [address] [place], [place] [phone] 01/09/2020 Anesthesia Event Surgery Barney Nicolas[address] [address] 01/09/2020 Surgery Surgery Vivian Gould, COLONOSCOP Y [address] [facility] [address] [place], [place] [address] 01/09/2020 Appointment Radiology Rema Moreno MD [address] [place] [phone] 02/03/2020 Office Visit Obstetrics & AdumCelia MD Gynecology [address] [place] [address] Dr. Arndt [address] [place] [phone] 04/05/2020 Office Visit Family Medicine Rema Moreno MD [address] [place] [phone] 04/30/2020 Office Visit Cardiology Montserrat Dangelo MD [address] [facility] [address] [place] [phone] Health Maintenance Due Date Last Done Comments PAP SMEAR 1989 Breast Cancer Screening 2008 (MAMMOGRAM) COLONOSCOPY 2018 INFLUENZA VACCINE (#1) 2020 DTaP,Tdap,and Td Vaccines (1 02/24/2020 Pos tponed from 09/19/1979 - Tdap) (Alternative Edil delines) PNEUMOCOCCAL 0-64 YEARS 02/24/2020 Postpone d from 1974 COMBINED SERIES (1 of 1 - (Alter [place] Guidelines) PPSV23) Zoster Recombinant Vaccine 02/24/2020 Postp [...] Effective Dates Phone Addre ss Type Group [facility] [id number] [facility] P[facility] t S documented as of this encounter
--- OUTSIDE RECORDS SUMMARY | 2020-03-17 18:24 | XMS REPORT | Summary of Care ---
:1970 Author Organization [facility] Address [address] [place] [address] Care Team Providers Name Role Phone Leti Moreno MD Primary Care Provider Reason for Referral Radiology Services (Routine) Status Reason Specialty Diagnoses / Referred By Referred To Procedures Contact Contact New Request Diagnostic Diagnoses Essential hypertension Abnormal EKG SOSA (dyspnea on exertion) Atypical chest pain Cigarette nicotine dependence without complication Dyslipidemia Abnormal LFTs Obesity (BMI 30-39.9) DangeloMontserrat jones Radiology Procedures NM MYOCARDIUM PERFUSION STRESS AND REST MD Patty [address] [place] [address] (Routine) Status Reason Specialty Diagnoses / Referred By Referred To Procedures Contact Contact New Request Cardiology Diagnoses Essential hypertension Abnormal EKG Dangelo, [place] Procedures ECHO ROUTINE W/DOPPLER COLOR Preferred Location: [facility] MD Patty [address] [place] [address] Reason for Visit Reason Comments New Patient Establish Care/CP Encounter Details Date Type Department Care Team Description 01/05/2020 Office Visit [facility] Montserrat Dangelo SOSA (dyspnea on exertion) (Primary Dx); Cardiology- Israel Brambila MD Essential hypertension; [address] [facility] [address] Abnormal EKG; Drive, [address] Atypical chest pain; [place], [place] Cigarette nicot ine dependence without complication; [phone] Dyslipidemia; [phone] Abnormal LFTs; Obesity ( BMI 30-39.9) Allergies No Known Allergiesdocumented as of this encounter (statuses as of 01/06/2020) Medications Medication Sig Dispensed Refills Start Date [...] as of this encounter (statuses as of 01/06/2020) Active Problems Problem Noted Date Screening for colorectal cancer 12/26/2019 Overview: Added automatically from request for jacobo lilly [id number] Abnormal LFTs 12/01/2019 Mixed hyperlipidemia 12/01/2019 Abnormal EKG 11/25/2019 Tobacco dependence 11/24/2019 Obesity (BMI 30-39.9) 06/11/2016 HTN (hypertension) Anxiety and depression documented as of this encounter (statuses as of 01/06/2020) Social History Tobacco Use Types Packs/Day Years [...] Dangelo MD - 01/05/2020 1:00 PM CDT [facility] Cardiology Consult Note Patient: Zoya [...] file Gets together: Not on file Attends anabaptism service: Not on file Active member of [...] hypertension ECHO ROUTINE W/DOPPLER COLOR Preferred Location: [facility] 3. Abnormal EKG ECHO ROUTINE W/DOPPLER COLOR Preferred Location: [facility] 4. Atypical chest pain 5. Cigarette [...] 6 weeks. The 10-year ASCVD risk score (Coyanosajairo VALERIO JrGiana, et al., 2013) is: 8.3% Values used to calculate the score: Age: 49 years Sex: Female Is Non- : No Diabetic: No Tobacco smoker: Yes Systolic Blood Pressure: 129 mmHg Is BP treated: Yes HDL Cholesterol: 49 mg/dL Total Cholesterol: 265 mg/dL Orders Placed This Encounter Procedures ECHO ROUTINE W/DOPPLER COLOR Preferred Location: [facility] Requested Prescriptions No prescriptions requested or ordered [...] patient appreciated the answers given by me andverbzalised statisfcation in the answers given. We reviewed the [place] Heart Association recommendations for reduction of overall [...] feel free to call our office at [phone]. I would be happy to be of further assistance for Zoya Rowell wellbeing. Johnny Dangelo MD Rubber Press Operator, Division of Cardiology [facility] documented in this encounter Plan of Treatment Date Type Specialty Care Team Description 01/09/2020 Hospital Encounter Surgery Vivian Gould, Scre ening for MD colorectal cancer [address] [place] [address] [address] [place], [place] [phone] 01/09/2020 Anesthesia Event Surgery Barney Nicolas, [address] [phone] 01/09/2020 Surgery Surgery Vivian Gould, COLONOSCOP Y MD 0 [facility] [address] [place], [place] 133033 01/09/2020 Appointment Radiology Rema Moreno MD [address] [place] [phone] 02/03/2020 Office Visit Obstetrics & Adum, Celia Mulligan MD Gynecology [address] [place] [address] Dr. Arndt [address] [place] [phone] 02/27/2020 Office Visit Cardiology Montserrat Dangelo MD [address] [facility] [address] [place] [phone] 04/05/2020 Office Visit Family Medicine Rema Moreno MD [address] [place] [address] 04/30/2020 Office Visit Cardiology Montserrat Dangelo MD [address] [place] [address] Name Type Priority Associated Diagnoses Order S chedule NM MYOCARDIUM PERFUSION IMAGING Routine [facility] hypertension Expected: 01/06/2020 STRESS AND REST Abnormal EKG (Approximate), SOSA (dyspnea on Expires: exertion) Atypical chest p ain Cigarette nicotine dependence without complication Dyslipidemia Abnormal LFTs Obesity (BMI 30-39.9) Health Maintenance Due Date Last Done Comments PAP SMEAR 1989 Breast Cancer Screening 2008 (MAMMOGRAM) COLONOSCOPY 2018 INFLUENZA VACCINE (#1) 2020 DTaP,Tdap,and Td Vaccines (1 02/24/2020 Pos tponed from 09/19/1979 - Tdap) (Alternative Edil delines) PNEUMOCOCCAL 0-64 YEARS 02/24/2020 Postpone d from 1974 COMBINED SERIES (1 of 1 - (Alter [place] Guidelines) PPSV23) Zoster Recombinant Vaccine 02/24/2020 Postp oned from 2018 (SHINGRIX) (1 of 2) (Alternative Guidelines) Depression Screening 11/23/2020 11/24/2019, 11/24/2019 documented as of this encounter Results ECHO ROUTINE W/DOPPLER COLOR Preferred Location: [facility] (01/05/2020 3:14 PM CDT) Specimen Performing Organization Address City/State/Zipcode Phone Number ECHO documented in this encounter Visit Diagnoses Diagnosis SOSA [...] Effective Dates Phone Addre ss Type Group [facility] [id number] [facility] PPO t S documented as of this encounter
--- OUTSIDE RECORDS SUMMARY | 2020-03-17 18:24 | XMS REPORT | Summary of Care ---
:1970 Author Organization [facility] Address [address] [place] [address] Care Team Providers Name Role Phone Kenzie Moreno MD Primary Care Provider Reason for Referral Radiology Services (STAT) Status Reason Specialty Diagnoses / Referred By Referred To Procedures Contact Contact New Request Diagnostic Diagnoses Abnormal liver function tests Elevated alkaline phosphatase level Transaminitis Abdominal bloating Josh, Radiology Procedures US ABDOMEN COMPLETE Rema Espino MD [address] [place] [address] [place] [address] Reason for Visit Reason Comments Anxiety Hypertension patient did not get any of h er medications prescribed at last visit Encounter Details Date Type Department Care Team Description 01/05/2020 Office Visit [facility] Pediatric Rema Moreno bnormal liver function tests (Primary Dx); and Adult Primary MD Kenzie Essential hypertension; Care- [address] Anxiety and depression; [address] [place], [place] Hoarseness ; [address], [address] [phone] Tobacco dependency; [place], [place] [phone] Elevated alkaline phosphatase level; [phone] Transaminitis; [phone] Abdominal bloat ing; History of ches t [...] Added automatically from request for jacobo carr [id number] Abnormal LFTs 12/01/2019 Mixed hyperlipidemia 12/01/2019 Abnormal [...] as "self isolate, "quarantine," stay at home, nursing home in place, and lockdown. The CDC advises [...] soap and water, use an alcohol-based hand senior graphic designer often. Make sure it has at least [...] or paper towel. Use an alcohol-based hand senior graphic designer often. Make sure it has at least [...] soap and water, use an alcohol-based hand senior graphic designer often. Make sure it has at least [...] clinic or hospital. See the CDC's symptom blast furnace checker. Stay home if you are sick [...] Stuart copeland reviewed this educational content on 09/10/201919999817-4289 [employer]). [address] [place] [address], [place] [address]. All rights reserved. This information is not intended as a substitute for professional medical care. Always follow your healthcare professional's instructions. documented in this encounter Progress Notes Rema Morneo MD - 01/05/2020 11:30 AM CDT Cc: [...] is scheduled to see Dr. Kerr in [place] next month. She had abnormal LFTs on [...] file Gets together: Not on file Attends episcopalian service: Not on file Active member of [...] visit. Latest known visit with results is: Licensed Esthetician Visit on 11/24/2019 Component Date Value NA [...] sodium diet/DASH diet along with exercise per Meteorological Aide's recommendations as part of a heart healthy [...] at a future visit. If applicable, the [facility] database was accessed to review any controlled substance prescription claims data. If the patient is taking prescribed medications, the [employer] prescription claims data in [place] was reviewed to assess patient compliance with [...] 01/05/2020 Laboratory Only Cardiology Marilu Moreno MD [address] [place] [address] [place] [address] Pc, Adc Echo Room 1 - 01/09/2020 Hospital Encounter Surgery Vivian Gould Scre ening for colorectal cancer [address] [facility] [address] [place] [address] [phone] 01/09/2020 Anesthesia Event Surgery Barney Nicolas, [address] [phone] 01/09/2020 Surgery Surgery Vivian Gould, COLONOSCOP Y [address] [facility] [address] [place], [place] [address] 01/09/2020 Appointment Radiology Rema Moreno MD [address] [place] [address] 02/03/2020 Office Visit Obstetrics & Adum, Celia Mulligan MD Gynecology [address] [place] [address] Dr. Arndt 208 [place] [address] 04/05/2020 Office Visit Family Medicine Rema Moreno MD [address] [place] [address] 04/30/2020 Office Visit Cardiology Montserrat Dangelo MD [address] [facility] [address] [place] [address] Name Type Priority Associated Diagnoses [...] COMBINED SERIES (1 of 1 - (Alter [place] Guidelines) PPSV23) Zoster Recombinant Vaccine 02/24/2020 Postp [...] Effective Dates Phone Addre ss Type Group [facility] [id number] [facility] PPO t S documented as of this encounter
--- OUTSIDE RECORDS SUMMARY | 2020-03-17 18:24 | XMS REPORT | Summary of Care ---
:1970 Author Organization [facility] Address [address] [place] [address] Care Team Providers Name Role Phone Kenzie Moreno MD Primary Care Provider Reason for Visit Reason Comments Results radiology Encounter Details Date Type Department Care Team Description 01/06/2020 Telephone [facility] Family Rema Moreno R esults (radiology) Medicine - [place] THOMAS [address] [place] [address] Dr [address] [place] [address] [place] [address] [place], [place] [phone] Allergies No Known Allergiesdocumented as of this [...] Overview: Added automatically from request for jacobo [id number] Abnormal LFTs 12/01/2019 Mixed hyperlipidemia 12/01/2019 Abnormal [...] Gould, Scre ening for MD colorectal cancer [address] [place] [address] [place] [address] [phone] 01/09/2020 Anesthesia Event Surgery Barney Nicolas, [address] [phone] 01/09/2020 Surgery Surgery Vivian Gould, COLONOSCOP Y MD [address] [facility] [address] [place] [address] [phone] 01/09/2020 Appointment Radiology Rema Moreno MD [address] [place] [phone] 02/03/2020 Office Visit Obstetrics & AdCelia tay MD Gynecology [address] [place] [address] Dr. Ardnt [address] [place] [phone] 02/27/2020 Office Visit Cardiology Montserrat Dangelo MD [address]NDT [address] [place] [phone] 04/05/2020 Office Visit Family Medicine Rema Moreno MD [address] [place] [phone] 04/30/2020 Office Visit Cardiology Montserrat Dangelo MD [address] [place] [phone] Health Maintenance Due Date Last Done Comments PAP SMEAR 1989 Breast Cancer Screening 2008 (MAMMOGRAM) COLONOSCOPY 2018 INFLUENZA VACCINE (#1) 2020 DTaP,Tdap,and Td Vaccines (1 02/24/2020 Pos tponed from 09/19/1979 - Tdap) (Alternative Edil delines) PNEUMOCOCCAL 0-64 YEARS 02/24/2020 Postpone d from 1974 COMBINED SERIES (1 of 1 - (Alter [place] Guidelines) PPSV23) Zoster Recombinant Vaccine 02/24/2020 Postp oned from 2018 (SHINGRIX) (1 of 2) (Alternative Guidelines) Depression Screening 11/23/2020 11/24/2019, 11/24/2019 documented as of this encounter Results Not on filedocumented in this encounter Insurance Payer Benefit Plan / Subscriber ID Effective Dates Phone Addre ss Type Group [facility] [id number] 2019-Presen HMO/ PPO/[facility] PPO t S documented as of this encounter
--- OUTSIDE RECORDS SUMMARY | 2020-03-17 18:25 | XMS REPORT | Summary of Care ---
:1970 Author Organization [facility] Address [address] [place] [address] Care Team Providers Name Role Phone Kenzie Moreno MD Primary Care Provider Reason for Visit Reason Comments Results Encounter Details Date Type Department Care Team Description 01/20/2020 Telephone [facility] Cardiology- Montserrat Dangelo MD Results [place] [address] [facility], [address] [facility] [address] [place] [address] [place] [address] [phone] Allergies No Known Allergiesdocumented as of this encounter (statuses as of 01/22/2020) Medications Medication Sig Dispensed Refills Start Date [...] as of this encounter (statuses as of 01/22/2020) Active Problems Problem Noted Date Fatty liver 01/19/2020 Encounter for screening colonoscopy 01/12/2020 Overview: Added automatically from request for jacobo carr [id number] Screening for colorectal cancer 12/26/2019 Overview: Added automatically from request for jacobo carr [id number] Abnormal LFTs 12/01/2019 Mixed hyperlipidemia 12/01/2019 Abnormal EKG 11/25/2019 Tobacco dependence 11/24/2019 Obesity (BMI 30-39.9) 06/11/2016 HTN (hypertension) Anxiety and depression documented as of this encounter (statuses as of 01/22/2020) Social History Tobacco Use Types Packs/Day Years Used Date Current Every Day Smoker Cigarettes 1 15 Smokeless Tobacco: Never Used Alcohol Use Drinks/Week oz/Week Comments Not Currently Sex Assigned at Date Recorded Not on file COVID-19 Exposure Response Date Recorded In the last month, have you been in contact with No / Unsure 01/07/2020 2:34 PM CDT someone who was confirmed or suspected to have Coronavirus / COVID-19? documented as of this encounter Last Filed Vital Signs Not on filedocumented in this encounter Miscellaneous Notes Telephone Encounter - Berenice Mcbride RN - 01/22/2020 10:36 AM CDTAt this time DSE is not available at [facility] location due to medication back order. Patient will have to have done at [facility] for same cost or wait until medication supply is available at [facility], expected 03.10.2020. Routed to provider to get input if testing can wait until then. elephone Encounter - Kim Magaña RN - 01/21/2020 11:46 AM CDTTest scheduled as TTE. Will route to PSS to reschedule as DSE. Telephone Encounter - Montserrat Dangelo MD - 01/21/2020 11:14 AM CDT 02/03/2020 test should be DSE. After Echo 12/2019, and since we didn't have old records from Dr Cramer, i had placed orders for NMStress test. Due to cost of the NM Stress test, i cancelled NM stress test and ordered DSE to be done in the office (hopefully, it should be expensive for her). Telephone Encounter - Kim Magaña RN - 01/20/2020 11:06 AM CDT Montserrat Dangelo MD P Cardiology Nurse Echo with in acceptable limits. Preserved LVEF. No significant valve diease noted We received message back from Dr Cramer office that they didn't have any prior records. Recommend to proceed LexinNM Stress test. Orders placed Echo 12/2019 Interpretation Summary A two-dimensional transthoracic echocardiogram with M-mode and Doppler was performed. The study was technically adequate. There is no comparison study available. Ejection Fraction = 50-55%. Diastolic function is impaired relaxation. Septal motion is consistent with conduction abnormality. Estimated RA pressure is 0-5 mmHg. Insufficient Tricuspid regurgitation jet to estimate RVSP. Called and informed patient of results and recommendations. She verbalized understanding. She statesthat she scheduled the NM test and was told it will be $4000 out of pocket. She states she cancelledthe stress test. She is scheduled for echo on 02/03/2020. documented in this encounter Plan of Treatment Date Type Specialty Care Team Description 02/03/2020 Laboratory Only Cardiology Pc, Adc Echo Room 1 - 02/03/2020 Office Visit Obstetrics & AdumCelia Gynecology [address] [place] [address] Dr. Arndt [address] [place] [phone] 02/09/2020 Hospital Encounter Surgery Vivian Gould Enco unter for MD screening 0 [facility] colonoscop y [facility] 2.[address] [place], [place] [phone] 02/09/2020 Surgery Surgery Vivian Gould, COLONOSCOP Y MD 0 [facility] [address] [place], [place] [address] 02/27/2020 Office Visit Cardiology Montserrat Dangelo MD [address] [place] [phone] 04/05/2020 Office Visit Family Medicine Rema Moreno MD [address] [place] [phone] 04/16/2020 Office Visit Cardiology Montserrat Dangelo MD [address] [place] [address] Health Maintenance Due Date Last Done Comments PAP SMEAR 1989 Breast Cancer Screening 2008 (MAMMOGRAM) COLON CANCER SCREENING ANNUAL 2018 FIT/FOBT COLON CANCER SCREENING FIT 2018 DNA EVERY 3 YEARS COLON CANCER SCREENING 2018 SIGMOIDOSCOPY EVERY 5 YEARS COLONOSCOPY 2018 Colorectal Cancer Screening 2018 INFLUENZA VACCINE (#1) 2020 DTaP,Tdap,and Td Vaccines (1 02/24/2020 Pos tponed from 09/19/1987 - Tdap) (Alternative Edil delines) PNEUMOCOCCAL 0-64 YEARS 02/24/2020 Postpone d from 1974 COMBINED SERIES (1 of 1 - (Alter [place] Guidelines) PPSV23) Zoster Recombinant Vaccine 02/24/2020 Postp oned from 2018 (SHINGRIX) (1 of 2) (Alternative Guidelines) Depression Screening 11/23/2020 11/24/2019, 11/24/2019 documented as of this encounter Results Not on filedocumented in this encounter Insurance Payer Benefit Plan / Subscriber ID Effective Dates Phone Addre ss Type Group [facility] [id number] 2019-Presen HMO/ PPO/ [facility] PPO t S documented as of this encounter
--- OUTSIDE RECORDS SUMMARY | 2020-03-17 18:25 | XMS REPORT | Summary of Care ---
:1970 Author Organization [facility] Address [address] [place] [address] Care Team Providers Name Role Phone Kenzie Moreno MD Primary Care Provider Encounter Details Date Type Department Care Team Description 01/09/2020 Prep For Surgery [facility] Surgical Gia Mcginnis, Encounter for Specialties - MAJOR ASSEMBLY LINEMAN screening [place] [address] colonoscopy (Primary [address]) Drive, [address] [place] [address] [phone] Allergies No Known Allergiesdocumented as of this encounter (statuses as of 01/09/2020) Medications Medication Sig Dispensed Refills Start Date [...] as of this encounter (statuses as of 01/09/2020) Active Problems Problem Noted Date Screening for colorectal cancer 12/26/2019 Overview: Added automatically from request for jacobo carr [id number] Abnormal LFTs 12/01/2019 Mixed hyperlipidemia 12/01/2019 Abnormal EKG 11/25/2019 Tobacco dependence 11/24/2019 Obesity (BMI 30-39.9) 06/11/2016 HTN (hypertension) Anxiety and depression documented as of this encounter (statuses as of 01/09/2020) Social History Tobacco Use Types Packs/Day Years [...] Treatment Date Type Specialty Care Team Description 01/15/2020 Laboratory Only Cardiology Pc, Adc Echo Room 1 - 02/03/2020 Office Visit Obstetrics & Gynecology Gertrude Urbina MD [address] [place] [address] Dr. Arndt [address] [place] [phone] 02/27/2020 Office Visit Cardiology Montserrat Dangelo MD [address] [place] [address] DR ARNDT [address] [place] [phone] 04/05/2020 Office Visit Family Medicine Rema Moreno MD [address] [place] [address] [phone] 04/16/2020 Office Visit Cardiology Montserrat Dangelo MD [address] [facility] [address] ARNDT [address] [place] [phone] Health Maintenance Due Date Last Done Comments PAP SMEAR 1989 Breast Cancer Screening 2008 (MAMMOGRAM) COLONOSCOPY 2018 INFLUENZA VACCINE (#1) 2020 DTaP,Tdap,and Td Vaccines (1 02/24/2020 Pos tponed from 09/19/1979 - Tdap) (Alternative Edil delines) PNEUMOCOCCAL 0-64 YEARS 02/24/2020 Postpone d from 1974 COMBINED SERIES (1 of 1 - (Alter [place] Guidelines) PPSV23) Zoster Recombinant Vaccine 02/24/2020 Postp [...] Dates Phone Addre ss Type Group [facility] [id number] 2019-Presen HMO/ PPO/[facility] PPO t S documented as of this encounter
--- OUTSIDE RECORDS SUMMARY | 2020-03-17 18:25 | XMS REPORT | Summary of Care ---
:1970 Author Organization [facility] Address [address] [place] [address] Care Team Providers Name Role Phone Kenzie Moreno MD Primary Care Provider Reason for Visit Reason Comments LAB WORK Auth/Cert Status Reason Specialty Diagnoses / Referred By Referred To Procedures Contact Contact Clinical Medical Diagnoses Encounter for screening for malignant neoplasm of colon Encounter for screening for malignant neoplasm of colon [Z12.11] [facility] Lab Laboratory Procedures COVID-19 (ID NOW RAPID TESTING) COVID-19 (ID NOW RAPID TESTING) [[id number]] [address] [place] [address] Encounter Details Date Type Department Care Team Description 01/07/[address] [facility] Vivian Gould MD [address] [facility] [address] [place], [place] [id number] Pre-operative Phlebotomy Only, [facility] Test clearance (Primary Lab-[place] Dx) [address] [place] [address] Allergies No Known Allergiesdocumented as of this encounter (statuses as of 01/07/2020) Medications Medication Sig Dispensed Refills Start Date [...] as of this encounter (statuses as of 01/07/2020) Active Problems Problem Noted Date Screening for colorectal cancer 12/26/2019 Overview: Added automatically from request for jacobo carr [id number] Abnormal LFTs 12/01/2019 Mixed hyperlipidemia 12/01/2019 Abnormal EKG 11/25/2019 Tobacco dependence 11/24/2019 Obesity (BMI 30-39.9) 06/11/2016 HTN (hypertension) Anxiety and depression documented as of this encounter (statuses as of 01/07/2020) Social History Tobacco Use Types Packs/Day Years [...] Scre ening for MD colorectal cancer [address] [facility] [address] [place], [place] [address] 01/09/2020 Anesthesia Event Surgery Barney Nicolas[address] [phone] 01/09/2020 Surgery Surgery Vivian Gould, COLONOSCOP Y [address] [facility] [address] [place], [place] [address] 01/09/2020 Appointment Radiology Rema Moreno MD [address] [place] [address] 01/15/2020 Appointment Radiology Montserrat Dangelo MD [address] [place] [address] DR ARNDT [address] [place] [phone] 01/15/2020 Appointment Radiology Montserrat Dangelo MD [address] [place] [address] DR ARNDT [address] [place] [phone] 01/15/2020 Appointment Radiology Montserrat Dangelo MD [address] [place] [address] DR ARNDT [address] [place] [phone] 01/15/2020 Appointment Radiology Montserrat Dangelo MD [address] [place] [address] DR ARNDT [address] [place] [phone] 01/15/2020 Appointment Echocardiograph Antione Vázquez M D [address] [place] [address] Pc, Adc Echo-Vascular Room 1 - 01/15/2020 Laboratory Only Cardiology Pc, Adc Echo Room 1 - 02/03/2020 Office Visit Obstetrics & Adum, Celia Mulligan, Gynecology [address] [place] [address] Dr. Arndt [address] [place] [phone] 02/27/2020 Office Visit Cardiology Montserrat Dangelo MD [address] [place] [address] DR ARNDT [address] [place] [phone] 04/05/2020 Office Visit Family Medicine Rema Moreno MD [address] [place] [address] 04/16/2020 Office Visit Cardiology Montserrat Dangelo MD [address] ARNDT [address] [place] [phone] Name Type Priority Associated Diagnoses Date/Ti me COVID-19 (ID NOW RAPID LAB Routine Pre-operative denice laura 01/07/2020 5:13 PM CDT TESTING) Name Type Priority Associated Diagnoses Order S chedule COVID-19 (ID NOW RAPID LAB Routine Pre-operative denice laura Expected: 01/07/2020, TESTING) Expires: 2020 Health Maintenance Due Date Last Done Comments PAP SMEAR 1989 Breast Cancer Screening 2008 (MAMMOGRAM) COLONOSCOPY 2018 INFLUENZA VACCINE (#1) 2020 DTaP,Tdap,and Td Vaccines (1 02/24/2020 Pos tponed from 09/19/1979 - Tdap) (Alternative Edil delines) PNEUMOCOCCAL 0-64 YEARS 02/24/2020 Postpone d from 1974 COMBINED SERIES (1 of 1 - (Alter [place] Guidelines) PPSV23) Zoster Recombinant Vaccine 02/24/2020 Postp oned from 2018 (SHINGRIX) (1 of 2) (Alternative Guidelines) Depression Screening 11/23/2020 11/24/2019, 11/24/2019 documented as of this encounter Results Not on filedocumented in this encounter Visit Diagnoses Diagnosis Pre-operative clearance - Primary Preoperative examination, unspecified documented in this encounter Additional Health Concerns Infection Onset Date Last Indicated Resolved Time COVID-19 Rule Out 01/07/2020 01/07/2020 documented as of this encounter Insurance Payer Benefit Plan / Subscriber ID Effective Dates Phone Addre ss Type Group [facility] [id number] 2019-[facility] HMO/ PPO/[facility] PPO t S documented as of this encounter
--- OUTSIDE RECORDS SUMMARY | 2020-03-17 18:25 | XMS REPORT | Summary of Care ---
:1970 Author Organization [facility] Address [address] [place] [address] Care Team Providers Name Role Phone Kenzie Moreno MD Primary Care Provider Reason for Referral (Routine) Status Reason Specialty Diagnoses / Referred By Referred To Procedures Contact Contact New Request Cardiology Diagnoses Essential hypertension Abnormal EKG SOSA (dyspnea on exertion) Atypical chest pain Cigarette nicotine dependence without complication Dyslipidemia Abnormal LFTs Obesity (BMI 30-39.9) James, Sendil Procedures DOBUTAMINE STRESS ECHO Preferred Location: Israel Brambila MD [address] [facility] [address] [place] [address] (Routine) Status Reason Specialty Diagnoses / Referred By Referred To Procedures Contact Contact Authorized Echocardiograph Diagnoses Essential hypertension Abnormal EKG James, Sendil Adc Echo Cardio Procedures ECHO ROUTINE W/DOPPLER COLOR Preferred Location: Israel Brambila MD Lab-Pt [address] [place] [phone] Phone: Fax: Reason for Visit Reason Comments New Patient Establish Care/CP Encounter Details Date Type Department Care Team Description 01/05/2020 Office Visit [facility] Antolin Sendil SOSA (dyspnea on exertion) (Primary Dx); Cardiology- Israel Brambila MD Essential hypertension; [address] Abnormal EKG; Drive, [address] Atypical chest pain; [place], [place] Cigarette nicot ine dependence without complication; [phone] Dyslipidemia; [phone] Abnormal LFTs; Obesity ( BMI 30-39.9) Allergies No Known Allergiesdocumented as of this encounter (statuses as of 01/21/2020) Medications Medication Sig Dispensed Refills Start Date [...] as of this encounter (statuses as of 01/21/2020) Active Problems Problem Noted Date Encounter for screening colonoscopy 01/12/2020 Overview: Added automatically from request for jacobo carr [id number] Screening for colorectal cancer 12/26/2019 Overview: Added automatically from request for jacobo carr [id number] Abnormal LFTs 12/01/2019 Mixed hyperlipidemia 12/01/2019 Abnormal EKG 11/25/2019 Tobacco dependence 11/24/2019 Obesity (BMI 30-39.9) 06/11/2016 HTN (hypertension) Anxiety and depression documented as of this encounter (statuses as of 01/21/2020) Social History Tobacco Use Types Packs/Day Years [...] CDT documented in this encounter Progress Notes Misty James MD - 01/05/2020 1:00 PM CDT [facility] Cardiology Consult Note Patient: Zoya [...] file Gets together: Not on file Attends uatsdin service: Not on file Active member of [...] hypertension ECHO ROUTINE W/DOPPLER COLOR Preferred Location: [facility] 3. Abnormal EKG ECHO ROUTINE W/DOPPLER COLOR Preferred Location: [facility] 4. Atypical chest pain 5. Cigarette [...] 6 weeks. The 10-year ASCVD risk score (Miltonjairo VALERIO Jr., et al., 2013) is: 8.3% Values used to calculate the score: Age: 49 years Sex: Female Is Non- : No Diabetic: No Tobacco smoker: Yes Systolic Blood Pressure: 129 mmHg Is BP treated: Yes HDL Cholesterol: 49 mg/dL Total Cholesterol: 265 mg/dL Orders Placed This Encounter Procedures ECHO ROUTINE W/DOPPLER COLOR Preferred Location: [facility] Requested Prescriptions No prescriptions requested or [...] patient appreciated the answers given by me andtracyzarosalinesed statisfcation in the answers given. We reviewed the [place] Heart Association recommendations for reduction of overall [...] to participate in the care of Zoya Dionna Rowell. If you have any questions or concerns please feel free to call our office at [phone]. I would be happy to be of further assistance for Zoya Rowell wellbeing. Johnny James MD Devulcanizer Charger, Division of Cardiology [facility] documented in this encounter Miscellaneous Notes Addendum Note - Misty James MD - 01/05/2020 1:00 PM CDT Addended by: MISTY JAMES on: 01/12/2020 10:33 PM Modules accepted: Orders Addendum Note - Misty James MD - 01/05/2020 1:00 PM CDT Addended by: MISTY JAMES on: 01/06/2020 12:49 PM Modules accepted: Orders documented in this encounter Plan of Treatment Date Type Specialty Care Team Description 02/03/2020 Laboratory Only Cardiology Pc, Adc Echo Room 1 - 02/03/2020 Office Visit Obstetrics & AdCelia tay, Gynecology [address] [place] [address] Dr. Arndt [address] [place] [address] 02/09/2020 Hospital Encounter Surgery Vivian Gould Enco unter for MD screening [address] [facility] colonoscop y [facility] [address] [place] [address] [phone] 02/09/2020 Surgery Surgery Vivian Gould, COLONOSCOP Y [address] [facility] [address] [place] [address] [phone] 02/27/2020 Office Visit Cardiology Misty James MD [address] ARNDT [address] [place] [phone] 04/05/2020 Office Visit Family Medicine Rema Moreno MD [address] [place] [address] 04/16/2020 Office Visit Cardiology Misty James MD [address] ARNDT [address] [place] [phone] Health Maintenance Due Date Last Done [...] COMBINED SERIES (1 of 1 - (Alter [place] Guidelines) PPSV23) Zoster Recombinant Vaccine 02/24/2020 Postp oned from 2018 (SHINGRIX) (1 of 2) (Alternative Guidelines) Depression Screening 11/23/2020 11/24/2019, 11/24/2019 documented as of this encounter Results ECHO ROUTINE W/DOPPLER COLOR Preferred Location: [facility] (01/05/2020 3:14 PM CDT) Specimen Performing [...] blood chemistry Obesity (BMI 30-39.9) Obesity, unspecified Encounter for screening colonoscopy - Pr imary Special screening for malignant neoplasm s, colon Encounter for screening colonoscopy Special screening for malignant neoplasm s, colon documented in this encounter Additional Health Concerns Infection Onset Date Last Indicated Resolved Time COVID-19 Rule Out 01/07/2020 01/07/2020 01/07/2020 5: 33 PM CDT documented as of this encounter Insurance Payer Benefit Plan / Subscriber ID Effective Dates Phone Addre ss Type Group [facility] [id number] [facility] PPO t S documented as of this encounter
--- OUTSIDE RECORDS SUMMARY | 2020-03-17 18:25 | XMS REPORT | Summary of Care ---
:1970 Author Organization [facility] Address [address] [place] [address] Care Team Providers Name Role Phone Kenzie [...] Brambila MD [address] [place] [address] [place] [address] (Routine) Status Reason Specialty Diagnoses / Referred By Referred To Procedures Contact Contact Authorized Cardiology Diagnoses Essential hypertension Abnormal EKG James, Sendil Procedures ECHO ROUTINE W/DOPPLER COLOR Preferred Location: Israel Brambila MD [address] [place] [address] [place] [address] Reason for Visit Reason Comments New Patient Establish Care/CP Encounter Details Date Type Department Care Team Description 01/05/2020 Office Visit [facility] James, Sendil SOSA (dyspnea on exertion) (Primary Dx); Cardiology- Israel Brambila MD Essential hypertension; [address] Abnormal EKG; Drive, [address] Atypical chest pain; [place], [place], [place] Cigarette nicot ine dependence without complication; [phone] Dyslipidemia; [phone] Abnormal LFTs; Obesity ( BMI 30-39.9) Allergies No Known Allergiesdocumented as of this encounter (statuses as of 01/12/2020) Medications Medication Sig Dispensed Refills Start Date [...] as of this encounter (statuses as of 01/12/2020) Active Problems Problem Noted Date Encounter for screening colonoscopy 01/12/2020 Overview: Added automatically from request for jacobo lilly [id number] Screening for colorectal cancer 12/26/2019 Overview: Added automatically from request for jacobo lilly [id number] Abnormal LFTs 12/01/2019 Mixed hyperlipidemia 12/01/2019 Abnormal EKG 11/25/2019 Tobacco dependence 11/24/2019 Obesity (BMI 30-39.9) 06/11/2016 HTN (hypertension) Anxiety and depression documented as of this encounter (statuses as of 01/12/2020) Social History Tobacco Use Types Packs/Day Years [...] documented in this encounter Progress Notes Montserrat James MD - 01/05/2020 1:00 PM CDT [facility] Cardiology Consult Note Patient: Zoya Rowell Date [...] file Gets together: Not on file Attends yazidi service: Not on file Active member of [...] hypertension ECHO ROUTINE W/DOPPLER COLOR Preferred Location: [facility] 3. Abnormal EKG ECHO ROUTINE W/DOPPLER COLOR Preferred Location: [facility] 4. Atypical chest pain 5. Cigarette [...] Procedures ECHO ROUTINE W/DOPPLER COLOR Preferred Location: [facility] Requested Prescriptions No prescriptions requested or [...] in the answers given. We reviewed the [place] [employer] recommendations for reduction of overall [...] feel free to call our office at [phone]. I would be happy to be of further assistance for Zoya Rowell wellbeing. Johnny James MD Lead Mechanic, Division of Cardiology [facility] documented in this encounter Miscellaneous Notes Addendum Note - Montserrat James MD - 01/05/2020 1:00 PM CDT Addended by: MONTSERRAT JAMES on: 01/12/2020 10:33 PM Modules accepted: Orders Addendum Note - Montserrat James MD - 01/05/2020 1:00 PM CDT Addended by: MONTSERRAT JAMES on: 01/06/2020 12:49 PM Modules accepted: Orders documented in this encounter Plan of Treatment Date Type Specialty Care Team Description 01/15/2020 Laboratory Only Cardiology Pc, Adc Echo Room 1 - 02/03/2020 Office Visit Obstetrics & AdumCelia Gynecology [address] [place] [address] Dr. Arndt [address] [place] [address] 02/09/2020 Hospital Encounter Surgery Vivian Gould Enco unter for screening [address] [facility] colonoscop y [facility] [address] [place], [place] [address] 02/09/2020 Surgery Surgery Vivian Gould, COLONOSCOP Y MD [address] [facility] [address] [place] [address] [phone] 02/27/2020 Office Visit Cardiology Montserrat James MD [address] ARNDT [address] [place] [phone] 04/05/2020 Office Visit Family Medicine Rema Moreno MD [address] [place] [address] 04/16/2020 Office Visit Cardiology Montserrat James MD [address] ARNDT [address] [place] [phone] Health Maintenance Due Date Last Done [...] COMBINED SERIES (1 of 1 - (Alter [place] Guidelines) PPSV23) Zoster Recombinant Vaccine 02/24/2020 Postp oned from 2018 (SHINGRIX) (1 of 2) (Alternative Guidelines) Depression Screening 11/23/2020 11/24/2019, 11/24/2019 documented as of this encounter Results ECHO ROUTINE W/DOPPLER COLOR Preferred Location: [facility] (01/05/2020 3:14 PM CDT) Specimen Performing [...] ss Type Group [facility] [id number] [facility] PPO t S documented as of this encounter
--- OUTSIDE RECORDS SUMMARY | 2020-03-17 18:25 | XMS REPORT | Summary of Care ---
:1970 Author Organization [facility] Address [address] [place] [address] Care Team Providers Name Role Phone Kenzie Moreno MD Primary Care Provider Reason for Referral Radiology Services (STAT) Status Reason Specialty Diagnoses / Referred By Referred To Procedures Contact Contact Closed Diagnostic Diagnoses Abnormal liver function tests Elevated alkaline phosphatase level Transaminitis Abdominal bloating Josh, Radiology Procedures US ABDOMEN COMPLETE Rema Espino MD [address] [place] [address] [facility] [place] [address] Reason for Visit Radiology Services (STAT) Status Reason Specialty Diagnoses / Referred By Referred To Procedures Contact Contact Closed Diagnostic Diagnoses Abnormal liver function tests Elevated alkaline phosphatase level Transaminitis Abdominal bloating Josh, Radiology Procedures US ABDOMEN COMPLETE Rema Espino MD [address] [place] [address] [facility] [place] [address] Encounter Details Date Type Department Care Team Description 01/09/2020 [facility] [address] [place] [address] Dr louis [address] [place] [address] [place] [address] [place] [address] [phone] [address] Allergies No Known Allergiesdocumented as of this encounter (statuses as of 01/10/2020) Medications Medication Sig Dispensed Refills Start Date [...] as of this encounter (statuses as of 01/10/2020) Active Problems Problem Noted Date Screening for colorectal cancer 12/26/2019 Overview: Added automatically from request for jacobo carr [id number] Abnormal LFTs 12/01/2019 Mixed hyperlipidemia 12/01/2019 Abnormal EKG 11/25/2019 Tobacco dependence 11/24/2019 Obesity (BMI 30-39.9) 06/11/2016 HTN (hypertension) Anxiety and depression documented as of this encounter (statuses as of 01/10/2020) Social History Tobacco Use Types Packs/Day Years [...] Visit Obstetrics & Gynecology Gertrude Urbina MD [address] [place] [address] Dr. Arndt [address] [place] [address] 02/27/2020 Office Visit Cardiology Montserrat Dangelo MD [address] [facility] [address] ARNDT [address] [place] [address] 04/05/2020 Office Visit Family Medicine Rema Moreno MD [address] [place] [address] 04/16/2020 Office Visit Cardiology Montserrat Dangelo MD [address] ARNDT [address] [place] [address] Health Maintenance Due Date Last Done Comments PAP SMEAR 1989 Breast Cancer Screening 2008 (MAMMOGRAM) COLONOSCOPY 2018 INFLUENZA VACCINE (#1) 2020 DTaP,Tdap,and Td Vaccines (1 02/24/2020 Pos tponed from 09/19/1979 - Tdap) (Alternative Edil delines) PNEUMOCOCCAL 0-64 YEARS 02/24/2020 Postpone d from 1974 COMBINED SERIES (1 of 1 - (Alter [place] Guidelines) PPSV23) Zoster Recombinant Vaccine 02/24/2020 Postp oned from 2018 (SHINGRIX) (1 of 2) (Alternative Guidelines) Depression Screening 11/23/2020 11/24/2019, 11/24/2019 documented as of this encounter Procedures Procedure Name Priority Date/Time Associated Diagnosis Comme nts US ABDOMEN COMPLETE STAT 01/09/2020 2:14 PM Abnormal liver Results for this CDT function tests procedure are in Elevated alkaline the result s phosphatase leve l section. Transaminitis Abdominal bloating documented in this encounter Results US ABDOMEN COMPLETE (01/09/2020 2:14 PM CDT) Specimen Impressions Performed At PACS/VR/DOSE Normal size liver with coarsened echotex ture and diffuse increase in echogenicity suggestive of steatosis. Coarsened echote xture may be seen in chronic liver disease. Narrative Performed At HISTORY: 49yo F with worsening abdominal bloating and abnormal LFTs of PACS/VR/DOSE unclear cause. . ABDOMINAL ULTRASOUND, COMPLETE COMPARISON: None. FINDINGS: LIVER: Normal in size , shows diffuse in crease in echogenicity, and a coarsened echotexture. No focal hepatic lesion. Norm al hepatopetal flow within the main portal vein. GALLBLADDER: No cholelithiasis, perichol ecystic fluid, or gallbladder distention. No sonographic Goss's sign . The common bile duct measures ____3.5 mm. PANCREAS: Incompletely visualized due to overlying bowel gas. SPLEEN: The spleen is normal in size, me asuring 11 cm. KIDNEYS: The kidneys are normal in size, contour, and echotexture. The right kidney measures 10.5 cm, and the l eft kidney measures 10.7 cm. No hydronephrosis. No ascites. The visualized portions of the abdominal aorta and IVC have normal caliber. Proximal aorta measures 1.9 cm in diamet er Procedure Note [facility], Radiant Results Inft User - 2019 3:12 PM CDT HISTORY: 49yo F with worsening abdominal bloating and abnormal LFTs of unclear cause. . ABDOMINAL ULTRASOUND, COMPLETE COMPARISON: None. FINDINGS: LIVER: Normal in size , shows diffuse in crease in echogenicity, and a coarsened echotexture. No focal hepatic lesion. Normal hepatopetal flow within the main portal vein. GALLBLADDER: No cholelithiasis, perichol ecystic fluid, or gallbladder distention. No sonographic Goss's sign . The common bile duct measures ____3.5 mm. PANCREAS: Incompletely visualized due to overlying bowel gas. SPLEEN: The spleen is normal in size, me asuring 11 cm. KIDNEYS: The kidneys are normal in size, contour, and echotexture. The right kidney measures 10.5 cm, and the l eft kidney measures 10.7 cm. No hydronephrosis. No ascites. The visualized portions of the abdominal aorta and IVC have normal caliber. Proximal aorta measures 1.9 cm in diamet er IMPRESSION Normal size liver with coarsened echotex ture and diffuse increase in echogenicity suggestive of steatosis. Co arsened echotexture may be seen in chronic liver disease. Performing Organization Address City/State/Zipcode Phone Number PACS/VR/DOSE documented in this encounter Visit Diagnoses Diagnosis Abnormal liver function tests Other abnormal blood chemistry Elevated alkaline phosphatase level Other nonspecific abnormal serum enzyme levels Transaminitis Nonspecific elevation of levels of trans aminase or lactic acid dehydrogenase (LDH) Abdominal bloating Flatulence, eructation, and gas pain documented in this encounter Insurance Payer Benefit Plan / Subscriber ID Effective Dates Phone Addre ss Type Group [facility] [id number] 2019-Presen HMO/ PPO/[facility] PPO t S documented as of this encounter
--- OUTSIDE RECORDS SUMMARY | 2020-03-17 18:25 | XMS REPORT | Summary of Care ---
:[address] [facility] - Health Address [address] [place] [address] Care Team Providers Name Role Phone Kenzie Moreno MD Primary Care Provider Encounter Details Date Type Department Care Team Description 01/07/[address] [facility] Doctor Unassigned, No [address] [facility] [place] [address] [address] [place] [address] Allergies No Known Allergiesdocumented as of this [...] Added automatically from request for jacobo carr [id number] Abnormal LFTs 12/01/2019 Mixed hyperlipidemia 12/01/2019 Abnormal [...] Gould, Scre ening for MD colorectal cancer [address] [place] [address] [place] [address] [phone] 01/09/2020 Anesthesia Event Surgery Barney Nicolas, [address] [phone] 01/09/2020 Surgery Surgery Vivian Gould, COLONOSCOP Y MD [address] [place] [address] [address] [place], [place] [address] 01/09/2020 Appointment Radiology Rema Moreno MD [address] [place] [address] [phone] 01/15/2020 Appointment Radiology Montserrat Dangelo MD [address] [facility] [address] [address] ARNDT [address] [place] [phone] 01/15/2020 Appointment Montserrat Chambers MD [address] [facility] ARNDT [address] [place] [phone] 01/15/2020 Appointment Radiology Montserrat Dangelo MD [address] [facility] [address] ARNDT [address] [place] [phone] 01/15/2020 Appointment Radiology Montserrat Dangelo MD [address] [facility] [address] ARNDT [address] [place] [phone] 01/15/2020 Appointment Echocardiograph Antione Vázquez M D [address] [facility] [address] [place] [phone] Pc, Adc Echo-Vascular Room 1 - 01/15/2020 Laboratory Only Cardiology Pc, Adc Echo Room 1 - 02/03/2020 Office Visit [facility]s & [facility] Gyne[facility] [address] [place] [address] Dr. Arndt [address] [place] [phone] 02/27/2020 Office Visit Cardiology Montserrat Dangelo MD [address] [facility] [address] ARNDT [address] [place] [phone] 04/05/2020 Office Visit Family Medicine Rema Moreno MD [address] [place] [address] 04/16/2020 Office Visit Cardiology Montserrat Dangelo MD [address] [facility] [address] ARNDT [address] [place] [phone] Health Maintenance Due Date Last Done Comments PAP SMEAR 1989 Breast Cancer Screening 2008 (MAMMOGRAM) COLONOSCOPY 2018 INFLUENZA VACCINE (#1) 2020 DTaP,Tdap,and Td Vaccines (1 02/24/2020 Pos tponed from 09/19/1979 - Tdap) (Alternative Edil delines) PNEUMOCOCCAL 0-64 YEARS 02/24/2020 Postpone d from 1974 COMBINED SERIES (1 of 1 - (Alter [place] Guidelines) PPSV23) Zoster Recombinant Vaccine 02/24/2020 Postp oned from 2018 (SHINGRIX) (1 of 2) (Alternative Guidelines) Depression Screening 11/23/2020 11/24/2019, 11/24/2019 documented as of this encounter Procedures Procedure Name Priority Date/Time Associated Diagnosis Comme nts ASSIGNMENT OF BENEFITS Routine 01/07/2020 5:03 PM CDT documented in this encounter Results Not on filedocumented in this encounter Insurance Payer Benefit Plan / Subscriber ID Effective Dates Phone Addre ss Type Group [facility] [id number] 2019-[facility] HMO/ PPO/[facility] PPO t S documented as of this encounter
--- OUTSIDE RECORDS SUMMARY | 2020-03-17 18:26 | XMS REPORT | Summary of Care ---
:1970 Author Organization [facility] - [facility] Address [address] [place] [address] Care Team Providers Name Role Phone Kenzie Moreno MD Primary Care Provider Reason for Visit Reason Comments Exposure Encounter Details Date Type Department Care Team Description 02/07/2020 Laboratory Only [facility] Family Clay Gould MD [address] [facility] [address] [place] [address] Preop testing Medicine - [facility], Adc Fam Pob I (Primary Dx) [address] [place] [address] Allergies No Known Allergiesdocumented as of this encounter (statuses as of 02/07/2020) Medications Medication Sig Dispensed Refills Start Date [...] as of this encounter (statuses as of 02/07/2020) Active Problems Problem Noted Date Fatty liver 01/19/2020 Encounter for screening colonoscopy 01/12/2020 Overview: Added automatically from request for jacobo carr [id number] Screening for colorectal cancer 12/26/2019 Overview: Added automatically from request for jacobo carr [id number] Abnormal LFTs 12/01/2019 Mixed hyperlipidemia 12/01/2019 Abnormal EKG 11/25/2019 Tobacco dependence 11/24/2019 Obesity (BMI 30-39.9) 06/11/2016 HTN (hypertension) Anxiety and depression documented as of this encounter (statuses as of 02/07/2020) Social History Tobacco Use Types Packs/Day Years Used Date Current Every Day Smoker Cigarettes 1 15 Smokeless Tobacco: Never Used Alcohol Use Drinks/Week oz/Week Comments Not Currently Sex Assigned at Date Recorded Not on file COVID-19 Exposure Response Date Recorded In the last month, have you been in contact with No / Unsure 02/07/2020 12:25 PM CDT someone who was confirmed or suspected to have Coronavirus / COVID-19? documented as of this encounter Last Filed Vital Signs Not on filedocumented in this encounter Nursing Notes Rebecca Altamirano LVN - 02/07/2020 12:20 PM CDTGlenneo Dionna Rowell is a 49 year old female here for COVID Screening with a Nasopharyngeal Swab All droplet and contact precautions taken with appropriate PPE worn while interacting with patient. ? Goggles ? N95 Mask ? Gloves ? Gown RR: 12Pulse Ox: 96% Patient educated on plan of care for visit, swabbing technique, risks and benefits of test and length of time to receive results. Verbal consent obtained to perform test. CDC Fact Sheet for Patients nCoV Diagnostic Panel dated 08/24/2019 and Factsheet What to Do if Sick with COVID 19 08/04/19 provided. Patient swabbed per appropriate nasopharyngeal technique, and patient tolerated well. Patient was discharged from the testing clinic in stable condition. Rebecca Altamirano LVN 02/07/2020 12:26 PM documented in this encounter Plan of Treatment Date Type Specialty Care Team Description 02/09/2020 Hospital Encounter Surgery Vivian Gould Enco unter for MD screening [address] [facility] colonoscop y [place] [address] [place] [address] [phone] 02/09/2020 Anesthesia Event Surgery Santo Mahajan, [address] [phone] 02/09/2020 Surgery Surgery Vivian Gould, COLONOSCOP Y [address] [facility] [address] [place] [address] [phone] 02/23/2020 Appointment Echocardiograph Pc, [facility] Stress Room 1 - 02/27/2020 Office Visit Cardiology Montserrat Dangelo MD [address] [facility] [address] ARNDT [address] [place] [phone] 04/05/2020 Office Visit Family Medicine Rema Moreno MD [address] [place] [phone] 04/16/2020 Office Visit Cardiology Montserrat Dangelo MD [address] [facility] [address] ARNDT [address] [place] [phone] 02/04/2021 Office Visit Obstetrics & Adum, [facility]ia [facility] Gynecology [address] [place] [address] Dr. Arndt [address] [place] [phone] Name Type Priority Associated Diagnoses Order S chedule COVID-19 (ID NOW RAPID LAB Routine Preop testing Expe cted: 02/07/2020, TESTING) Expires: 2020 Health Maintenance Due Date [...] COMBINED SERIES (1 of 1 - (Alter [place] Guidelines) PPSV23) Zoster Recombinant Vaccine 02/24/2020 Postp oned from 2018 (SHINGRIX) (1 of 2) (Alternative Guidelines) Depression Screening 11/23/2020 11/24/2019, 11/24/2019 documented as of this encounter Results Not on filedocumented in this encounter Visit Diagnoses Diagnosis Encounter for screening colonoscopy - Pr imary Special screening for malignant neoplasm s, colon Preop testing - Primary Preoperative examination, unspecified Encounter for screening colonoscopy Special screening for malignant neoplasm s, colon documented in this encounter Additional Health Concerns Infection Onset Date Last Indicated Resolved Time COVID-19 Rule Out 02/07/2020 02/07/2020 documented as of this encounter Insurance Payer Benefit Plan / Subscriber ID Effective Dates Phone Addre ss Type Group [facility] [id number] [facility] PPO t S documented as of this encounter
--- OUTSIDE RECORDS SUMMARY | 2020-03-17 18:26 | XMS REPORT | Summary of Care ---
:1970 Author Organization [facility] Address [address] [place] [address] Care Team Providers Name Role Phone Kenzie Moreno MD Primary Care Provider Reason for Visit Reason Comments Results Encounter Details Date Type Department Care Team Description 01/20/2020 Telephone [facility] Cardiology- Montserrat Dangelo MD Results [place] [address] [facility], Suite [facility] [address] [place] [address] [place] [address] [phone] Allergies No Known Allergiesdocumented as of this [...] Added automatically from request for jacobo carr [id number] Screening for colorectal cancer 12/26/2019 Overview: Added automatically from request for jacobo carr [id number] Abnormal LFTs 12/01/2019 Mixed hyperlipidemia 12/01/2019 Abnormal [...] this encounter Miscellaneous Notes Telephone Encounter - Montserrat Dangelo MD - 01/22/2020 12:16 PM CDTGo ahead and schedule it in [facility] since she had ECG changes. elephone Encounter - Berenice Mcbride RN - 01/22/2020 10:36 AM CDTAt this time DSE is not available at [facility] location due to medication back order. Patient will have to have done at [facility] for same cost or wait until medication supply is available at [facility], expected 03.10.2020. Routed to provider to get input if testing can wait until then. Telephone Encounter - Kim Magaña RN - 01/21/2020 11:46 AM CDTTest scheduled as TTE. Will route to PSS to reschedule as DSE. elephone Encounter - Montserrat Dangelo MD - 01/21/2020 11:14 AM CDT02/03/2020 test should be DSE. After Echo 12/2019, [...] 1 - 02/03/2020 Office Visit Obstetrics & AdumCelia, Gynecology [address] [place] [address] Dr. Arndt [address] [place] [address] 02/09/2020 Hospital Encounter Surgery Vivian Gould Enco unter for screening [address] [facility] colonoscop y [place] [address] [place], [place] [address] 02/09/2020 Surgery Surgery Vivian Gould COLONOSCOP Y [address] [facility] [address] [place] [address] [phone] 02/27/2020 Office Visit Cardiology Montserrat Dangelo MD [address] ARNDT [address] [place] [phone] 04/05/2020 Office Visit Family Medicine Rema Moreno MD [address] [place] [phone] 04/16/2020 Office Visit Cardiology Montserrat Dangelo MD [address] ARNDT [address] [place] [phone] Health Maintenance Due Date Last Done Comments [...] COMBINED SERIES (1 of 1 - (Alter [place] Guidelines) PPSV23) Zoster Recombinant Vaccine 02/24/2020 Postp oned from 2018 (SHINGRIX) (1 of 2) (Alternative Guidelines) Depression Screening 11/23/2020 11/24/2019, 11/24/2019 documented as of this encounter Results Not on filedocumented in this encounter Insurance Payer Benefit Plan / Subscriber ID Effective Dates Phone Addre ss Type Group [facility] [id number] 2019-Presen HMO/ PPO/[facility] PPO t S documented as of this encounter
--- OUTSIDE RECORDS SUMMARY | 2020-03-17 18:26 | XMS REPORT | Summary of Care ---
:1970 Author Organization [facility] Address [address] [place] [address] Care Team Providers Name Role Phone Kenzie Moreno MD Primary Care Provider Reason for Visit Reason Comments Results Encounter Details Date Type Department Care Team Description 01/20/2020 Telephone [facility] Cardiology- Montserrat Dangelo MD Results [place] [address] [facility], Suite [facility] [address] [place] [address] [place] [address] [phone] Allergies No Known Allergiesdocumented as of this encounter (statuses as of 01/23/2020) Medications Medication Sig Dispensed Refills Start Date [...] as of this encounter (statuses as of 01/23/2020) Active Problems Problem Noted Date Fatty liver 01/19/2020 Encounter for screening colonoscopy 01/12/2020 Overview: Added automatically from request for jacobo carr [id number] Screening for colorectal cancer 12/26/2019 Overview: Added automatically from request for jacobo carr [id number] Abnormal LFTs 12/01/2019 Mixed hyperlipidemia 12/01/2019 Abnormal EKG 11/25/2019 Tobacco dependence 11/24/2019 Obesity (BMI 30-39.9) 06/11/2016 HTN (hypertension) Anxiety and depression documented as of this encounter (statuses as of 01/23/2020) Social History Tobacco Use Types Packs/Day Years [...] this encounter Miscellaneous Notes Telephone Encounter - Kim Magaña RN - 01/23/2020 8:52 AM CDTCalled and scheduled patient at [facility]. elephone Encounter - Zeynep Britt RN - 01/22/2020 3:55 PM CDTRouted to [facility] staff to schedule DSE stress tests at [facility] per MD request. elephone Encounter - Montserrat Dangelo MD - 01/22/2020 12:16 PM CDTGo ahead and schedule it in [facility] since she had ECG changes. elephone Encounter - Berenice Mcbride RN - 01/22/2020 10:36 AM CDTAt this time DSE is not available at [facility] location due to medication back order. Patient will have to have done at [facility] for same cost or wait until medication supply is available at [facility], expected 03.10.2020. Routed to provider to get [...] Visit Obstetrics & Adum, [facility]ia Mull[facility] Gynecology [address] [facility] [address] [place] [phone] 02/09/2020 Hospital Encounter Surgery Luis Fernando, Encounter for MD Vivian screening [address] [facility] [address] [place], [place] [phone] 02/09/2020 Surgery Surgery Luis Fernando, COLONOSCOPY MD Vivian [address] [facility] [address] [place], [place] [address] 02/23/2020 Appointment Echocardiograph Pc, [facility] Stress Room 1 - 02/27/2020 Office Visit Cardiology Montserrat Dangelo MD [address] [facility] [address] ARNDT [address] [place] [phone] 04/05/2020 Office Visit Family Medicine Rema Moreno MD [address] [place] [address] [place] [phone] 04/16/2020 Office Visit Cardiology Montserrat Dangelo MD [address] [facility] [address] ARNDT [address] [place] [phone] Health Maintenance Due Date Last Done [...] COMBINED SERIES (1 of 1 - (Alter [place] Guidelines) PPSV23) Zoster Recombinant Vaccine 02/24/2020 Postp oned from 2018 (SHINGRIX) (1 of 2) (Alternative Guidelines) Depression Screening 11/23/2020 11/24/2019, 11/24/2019 documented as of this encounter Results Not on filedocumented in this encounter Insurance Payer Benefit Plan / Subscriber ID Effective Dates Phone Addre ss Type Group [facility] [id number] 2019-[facility] HMO/ PPO/[facility] PPO t S documented as of this encounter
--- OUTSIDE RECORDS SUMMARY | 2020-03-17 18:26 | XMS REPORT | Summary of Care ---
:1970 Author Organization [facility] Address [address] [place] [id number] Care Team Providers Name Role Phone Kenzie Moreno MD Primary Care Provider Reason for Visit Reason Comments Well Woman Exam (Routine) Status Reason Specialty Diagnoses / Referred By Referred To Procedures Contact Contact Closed Obstetrics & Diagnoses Referral of patient Rema Moreno Vivian L, Gynecology Procedures CONSULT/REFERRAL RISK CONTROL MANAGER MD WILLIAM Espino [address] [place] [id number] [address] Phone: [place], [place] [phone] Encounter Details Date Type Department Care Team Description 02/03/2020 Office Visit [facility] Women's Celia Urbina MD Encounter for well woman exam with [facility]ant[facility] fam gynecological exam (Primary Dx); Healthcare- [address] Screening mammogram, encount er for; [address] [place] [address] [address]counter for screening colonoscopy [address], [address] [place] [phone] Allergies No Known Allergiesdocumented as of this encounter (statuses as of 02/03/2020) Medications Medication Sig Dispensed Refills Start Date [...] as of this encounter (statuses as of 02/03/2020) Active Problems Problem Noted Date Fatty liver 01/19/2020 Encounter for screening colonoscopy 01/12/2020 Overview: Added automatically from request for jacobo carr [id number] Screening for colorectal cancer 12/26/2019 Overview: Added automatically from request for jacobo lilly [id number] Abnormal LFTs 12/01/2019 Mixed hyperlipidemia 12/01/2019 Abnormal EKG 11/25/2019 Tobacco dependence 11/24/2019 Obesity (BMI 30-39.9) 06/11/2016 HTN (hypertension) Anxiety and depression documented as of this encounter (statuses as of 02/03/2020) Social History Tobacco Use Types Packs/Day Years Used Date Current Every Day Smoker Cigarettes 1 15 Smokeless Tobacco: Never Used Alcohol Use Drinks/Week oz/Week Comments Not Currently Sex Assigned at Date Recorded Not on file COVID-19 Exposure Response Date Recorded In the last month, have you been in contact with No / Unsure 02/03/2020 2:38 PM CDT someone who was confirmed or suspected to have Coronavirus / COVID-19? documented as of this encounter Last Filed Vital Signs Vital Sign Reading Time Taken Comments Blood Pressure 148/62 02/03/2020 2:38 PM CDT Pulse 86 02/03/2020 2:38 PM CDT Temperature 36.8 C (98.2 F) 02/03/2020 2:38 PM CDT Respiratory Rate 18 02/03/2020 2:38 PM CDT Oxygen Saturation - - Inhaled Oxygen Concentration - - Weight 82.6 kg (182 lb 3.2 oz) 02/03/2020 2:38 PM CDT Height 160 cm (5' 3") 02/03/2020 2:38 PM CDT Body Mass Index 32.28 02/03/2020 2:38 PM CDT documented in this encounter Patient Instructions Patient InstructionsDeborah Esteves MA - 02/03/2020 2:00 PM CDT Patient Education Clinical Breast Exam Many health organizations recommend a yearly clinical breast exam. This exam may be done by a custom stock maker, family healthcare provider, nurse practitioner, nurse snowmaker, or specially trained nurse. Yearly breast exams help tomake surethat breast conditions are found early. Your healthcare providers role A healthcare professional knows the tests and follow-up care needed if a problem is found. Your clinical exam is also a great time to ask questions about breast self-exams. You can find out if yourechecking your breasts in the best way. Or you may want to ask how , breast implants, or breast reduction surgery affect the way you should check your breasts. Diagnostic tests If a clinical exam reveals a breast change, you may have other tests to find out more. These tests may include: Mammography. A low-dose X-ray of your breast tissue. Ultrasound. An imaging test that uses sound waves to create images of your breast. Biopsy. A small amount of breast tissue is removed by needle or by a cut (incision). The tissue is then checked under a microscope. Guidelines for having clinical breast exams The [place] [employer] recommends that starting at age 29, you should have a clinical breast exam every 1 to 3 years. After age 40, have a clinical breast exam each year. If youre at higher risk for breast cancer, you may need exams more often. Risk factors for breast cancer may include: Being over 50 or postmenopausal Having a family history of breast cancer Having the BRCA1 or BRCA2 gene mutation or certain other gene mutations Having more menstrual periods due to starting menstruation early(before age 12) or having a late menopause (after age 55) Having no pregnancies Having a first after age 30 Being obese Having a history of radiation treatment to your chest area Exposure to JAYY during your mother's Not being active Drinking too much alcohol Having dense breast tissue Taking hormone therapy after menopause Other health organizations have different recommendations. Talk with your healthcare provider about what is best for you. [employer] reviewed this educational content on 01/09/201719999066-4828 [employer]. [address] [place] [address], [place] [address]. All rights reserved. This information is not intended as a substitute for professional medical care. Always follow your healthcare professional's instructions. Patient Education Breast Health: Breast Self-Awareness What is breast self-awareness? Breast self-awareness is knowing how your breasts normally look and feel. Your breasts change as yougo through different stages of your life. So its important to learn what is normal for your breasts. Knowing about your breasts helps you spot any changes in them right away. Tell your healthcare provider about any changes. Why is breast self-awareness important? Many experts now say that women should focus on breast self-awareness instead of doing a breast self-examination (BSE). These experts include the [place] [employer] and the [place] [employer]. Some experts even advise not teaching women to do a BSE. Thats because research hasnt shown a clear benefit to doing BSEs. Breast self-awareness is different than a BSE. It isnt about following a certain method and schedule. Its about knowing what's normal for your breasts. That way you can spot even small changes right away. If you see any changes, tell your healthcare provider. Changes to look for Call your healthcare provider if you find any changes in your breasts that worry you. These changes may be: A lump Nipple discharge other than breastmilk, especially if it's bloody Swelling A change in size or shape Skin changes, such as redness, thickening, or dimpling of the skin Swollen lymph nodes in the armpit Nipple problems, such as pain or redness If you find a lump Call your provider if you find lumpiness in one breast. Also call if you feel something different inthe tissue or feel a definite lump. Sometimes lumpiness may be due to menstrual changes. But there may be reason for concern. Your provider may want to see you right away if you have: Nipple discharge that is bloody Skin changes on your breast, such as dimpling or puckering Its okay to be upset if you find a lump. Be sure to call your provider right away. Remember that most breast lumps are benign. This means they are not cancer. [employer] last reviewed this educational content on 01/09/201719991098-5724 [employer]. [address] [place] [address], [place] [address]. All rights reserved. This information is not intended as a substitute for professional medical care. Always follow your healthcare professional's instructions. Patient Education The Range of Pap Test Results When your Pap test is sent to the lab, the lab studies your cell samples and reports any abnormal cell changes. Your healthcare provider can discuss these changes with you. In some cases, an abnormal Pap test is due to an infection. More serious cell changes range from dysplasia to cancer. Talk to your healthcare provider about your Pap test. Normal results Cervical cells, even normal ones, are always changing. As they mature, normal squamous cells move from deeper layers within the cervix. Over time, these cells flatten and cover the surface of the cervix. Within the cervical canal, the cells are different. These glandular cells are taller and not as flat as the cells on the surface of the cervix. When a Pap test sample shows healthy cells of both types, the results are negative. Keep having Pap tests as often as directed. Abnormal results A positive Pap test result means some cells in the sample showed abnormal changes. These results aregrouped by the type of cell change and the location, or extent, of the changes. Depending on the results, you may need further testing. Inflammation. Noncancerous changes are present. They may be due to normal cell repair. Or, they may be caused by an infection, such as HPV or yeast. Further testing may be needed. (Also called reactive cellular changes.) Atypical squamous cells. Test results are unclear. Cells on the surface of the cervix show changes, but their significance is not yet known. Testing for HPV and other sexually transmitted infections(STIs) may be needed. Treatment may be required. (Reported as ASC-US or ASC-H.) Atypical glandular cells. Cells lining the cervical canal show abnormal changes. Further testing is likely. You may also have treatment to destroy or remove problem cells. (Reported as AGC.) Mild dysplasia. Cells show distinct changes. More testing or HPV typing may be done. You may alsohave treatment to destroy or remove problem cells. (Reported as low-grade LUCHO or ALFONSO 1.) Moderate to severe dysplasia. Cells show precancerous changes. Or, noninvasive cancer (carcinoma in situ) may be present. Treatment to destroy or remove problem cells is likely. (Reported as high-grade LUCHO or ALFONSO 2 or ALFONSO 3.) Cancer. Different types of cancer may be detected by your Pap test. More tests to assess the cancer's extent are likely. The type of treatment will depend on the test results and other factors, suchas age and health history. (Reported as squamous cell carcinoma, endocervical adenocarcinoma in situ, or adenocarcinoma.) [employer] last reviewed this educational content on 01/09/201719997734-0157 The [employer]. [address] [place] [address]. All rights reserved. This information is not intended as a substitute for professional medical care. Always follow your healthcare professional's instructions. Patient Education Prevention Guidelines, Women Ages 50 to 64 Screening tests and vaccines are an important part of managing your health. A screening test is doneto find possible disorders or diseases in people who don't have any symptoms. The goal is to find a disease early so lifestyle changes can be made and you can be watched more closely to reduce the riskof disease, or to detect it early enough to treat it most effectively. Screening tests are not considered diagnostic, but are used to determine if more testing is needed.Health counseling is essential, too. Below are guidelines for these, for women ages 50 to 64. Talk with your healthcare provider to make sure youre up to date on what you need. Screening Who needs it How often Type 2 diabetes or prediabetes All women beginning at age 45 and women without symptoms at any age who are overweight or obese and have 1 or more additional risk factors for diabetes. At least every 3 years Type 2 diabetes or prediabetes All women diagnosed with gestational diabetes Lifelong testing every 3 years Type 2 diabetes All women with prediabetes Every year Alcohol misuse All women in this age group At routine exams Blood pressure All women in this age group Yearly checkup if your blood pressure is normal Normal blood pressure is less than 120/80 mm Hg If your blood pressure reading is higher than normal, follow the advice of your healthcare provider Breast cancer All women at average risk in this age group Yearly mammogram should be done until age 54. At age 55, you can switch to every other year or choose to continue yearly. All women should know the possible benefits and risks of breast cancer screening with mammograms. Cervical cancer All women in this age group, except women who have had a complete hysterectomy Pap test every 3 years or Pap test with human papillomavirus (HPV) test every 5 years Chlamydia Women at increased risk for infection At routine exams Colorectal cancer All women at average risk in this age group Multiple tests are available and are used at different times. Possible tests include: Flexible sigmoidoscopy every 5 years, or Colonoscopy every 10 [address], [address] colonography (virtual colonoscopy) every 5 years, or Yearly fecal occult blood test, or Yearly fecal immunochemical test every year, or Stool DNA test, every 3 years If you choose a test other than a colonoscopy and have an abnormal test result, you will need to follow up with a colonoscopy. Screening advice varies among expert groups. Talk with your healthcare provider about which tests are best for you. Some people should be screened using a different schedule because of their personal or family healthhistory. Talk with your healthcare provider about your health history. Depression All women in this age group At routine exams Gonorrhea Sexually active women at increased risk for infection At routine exams Hepatitis C Anyone at increased risk; 1 time for those born between 1945 and 1964 At routine exams High cholesterol or triglycerides All women in this age group who are at risk for coronary artery disease At least every 5 years HIV All women At routine exams Lung cancer Adults age 55 to 80 who have smoked Yearly screening in smokers with 30 pack-year history of smoking or who quit within 15 years Obesity All women in this age group At routine exams Osteoporosis Women who are postmenopausal Ask your healthcare provider Syphilis Women at increased risk for infection talk with your healthcare provider At routine exams Tuberculosis Women at increased risk for infection talk with your healthcare provider Ask your healthcare provider Vision All women in this age group Ask your healthcare provider Vaccine Who needs it How often Chickenpox (varicella) All women in this age group who have no record of this infection or vaccine 2doses; the second dose should be given at least 4 weeks after the first dose Hepatitis A Women at increased risk for infection talk with your healthcare provider 2 doses given at least 6 months apart Hepatitis B Women at increased risk for infection talk with your healthcare provider 3 doses over 6 months; second dose should be given 1 month after the first dose; the third dose should be given at least 2 months after the second dose and at least 4 months after the first dose Haemophilus influenzae Type B (HIB) Women at increased risk for infection talk with your healthcare provider 1 to 3 doses Influenza (flu) All women in this age group Once a year Measles, mumps, rubella (MMR) Women in this age group through their late 50s who have no record of these infections or vaccines 1 dose Meningococcal Women at increased risk for infection talk with your healthcare provider 1 or moredoses Pneumococcal conjugate vaccine (PCV13) and pneumococcal polysaccharide vaccine (PPSV23) Women at increased risk for infection talk with your healthcare provider PCV13: 1 dose ages 19 to 65 (protects against 13 types of pneumococcal bacteria) PPSV23: 1 to 2 doses through age 64, or 1 dose at 65 or older (protects against 23 types of pneumococcal bacteria) Tetanus/diphtheria/pertussis (Td/Tdap) booster All women in this age group Td every 10 years, or a 1-time dose of Tdap instead of a Td booster after age 18, then Td every 10 years Zoster All women ages 60 and older 1 dose Counseling Who needs it How often BRCA gene mutation testing for breast and ovarian cancer susceptibility Women with increased risk for having gene mutation When your risk is known Breast cancer and chemoprevention Women at high risk for breast cancer When your risk is known Diet and exercise Women who are overweight or obese When diagnosed, and then at routine exams Sexually transmitted infection prevention Women at increased risk for infection talk with your healthcare provider At routine exams Use of daily aspirin Women ages 55 and up in this age group who are at risk for cardiovascular health problems such as stroke When your risk is known Use of tobacco and the health effects it can cause All women in this age group Every exam 1 [place] [employer] last reviewed this educational content on 07/06/201519993425-2323 [employer]. [address] [place] [address]. All rights reserved. This information is not intended as a substitute for professional medical care. Always follow your healthcare professional's instructions. documented in this encounter Progress Notes Celia Urbina MD - 02/03/2020 2:00 PM CDT Chief complaint: Chief Complaint Patient presents with Well Woman Exam 49 year-old presents for WWE. She hasn't had one in years and has no concerns today. She had a hysterectomy in 2005 for endometriosis. She denies vaginal bleeding, hot flashes, night sweats, vaginal dryness and reports that she hasn't been sexual active for over 5 years. She denies past history of abnormal pap smears. She was evaluated for hoarseness of her voice today by ENT specialist, Dr Kerr in [place], and was found to have a large polpy on her vocal cord with plan for removal later this month after shehas undergone a previously scheduled stress test for abnormal EKG. Patient continues to smoke and isnot ready to quit yet, though she says she is considering it. She had mammogram ordered by her PCP,Dr Moreno in November but patient hasn't had one done yet. She is currently scheduled for a colonoscopy with a hemorrhoidectomy with Dr Gould on 02/08 She reports that her mood is stable on her current antidepressants Her PCP takes care of other co-morbidities and routine labs. Her BP is mildly elevated in the officetoday. She denies family history of colon,endometrial, ovarian or colon cancer Histories OB History Para Term AB Living 5 3 3 0 2 3 SAB TAB Ectopic Multiple Live Births 2 0 0 0 3 # Outcome Date GA Lbr Nicholas/2nd Weight Sex Delivery Anes PTL Lv 5 SAB 4 SAB 3 Term 2 Term 1 Term Obstetric Comments 2 NVD 1 section 2 1991, 1994 Past Medical History: Diagnosis Date Abnormal EKG 11/25/2019 Anxiety and depression Benign tumor of throat 2019 Cardiac arrest during delivery of child Fatty liver 01/19/2020 HTN (hypertension) Hypercholesterolemia Mixed hyperlipidemia 12/01/2019 Peptic ulcer disease Family History Problem Relation Age of Onset Hemochromatosis Brother Diabetes Brother High cholesterol Brother Allergies Brother Diabetes Mother Hypertension Mother COPD (chronic obstructive pulmonary disease) Mother Autoimmune other Mother Lupus Stroke Father Diabetes Father Hypertension Father Family Status Relation Name Status Bro Alive Mo Alive Fa Alive Past Surgical History: Procedure Laterality Date BLADDER NECK CLOSURE SECTION HYSTERECTOMY TONSILLECTOMY 1980 TUBAL LIGATION Social History Socioeconomic History Marital status: Spouse name: Not on file Number of children: Not on file Years of education: Not on file Highest education level: Not on file Occupational History Not on file Social Needs Financial resource strain: Not on file Food insecurity Worry: Not on file Inability: Not on file Transportation needs Medical: Not on file Non-medical: Not on file Tobacco Use Smoking status: Current Every Day Smoker Packs/day: 1.00 Years: 15.00 Pack years: 15.00 Types: Cigarettes Smokeless tobacco: Never Used Substance and Sexual Activity Alcohol use: Not Currently Drug use: Never Sexual activity: Not Currently Partners: Male Lifestyle Physical activity Days per week: Not on file Minutes per session: Not on file Stress: Not on file Relationships Social connections Talks on phone: Not on file Gets together: Not on file Attends religion service: Not on file Active member of club or organization: Not on file Attends meetings of clubs or organizations: Not on file Relationship status: Not on file Intimate partner violence Fear of current or ex partner: Not on file Emotionally abused: Not on file Physically abused: Not on file Forced sexual activity: Not on file Other Topics Concern Not on file Social History Narrative Lives 3 dogs Social History Substance and Sexual Activity Sexual Activity Not Currently Partners: Male Labs No new labs Radiology No new radiology. Allergies Zoya has No Known Allergies. Medications Zoya has a current medication list which includes the following prescription(s): telmisartan, citalopram, peg-electrolyte soln, and calcipotriene. Review of Systems Constitutional: Negative. HENT: Negative. Eyes: Negative. Respiratory: Negative. Breasts: Negative. Cardiovascular: Negative. Gastrointestinal: Negative. Genitourinary: Negative. Musculoskeletal: Negative. Skin: Negative. Neurological: Negative. Psychiatric/Behavioral: Negative. Endocrine: Endocrine negative BP (!) 148/62 (BP Location: Left arm, Patient Position: Sitting, BP CUFF SIZE: Adult Medium) | Pulse 86 | Temp 36.8 C (98.2 F) (Oral) | Resp 18 | Ht 5' 3" (1.6 m) | Wt 182 lb 3.2 oz (82.6 kg)| BMI 32.28 kg/m Pregravid BMI: Could not be calculated Physical Exam Vitals reviewed. Constitutional: She is oriented to person, place, and time. She appears well- developed and well-groomed. Neck: No tenderness and no mass. No thyroid nodules palpated. No neck adenopathy. Cardiovascular: Regular rate and rhythm. No friction rub and no murmur auscultated. No peripheral edema present. Pulmonary/Chest: Breath sounds clear to auscultation. Normal inspiratory effort. Abdominal: Abdomen is soft. No mass palpated. No tenderness present. There is no rigidity and no guarding. No hernia palpated or inspected. Neuro/Psychiatric: She has a normal mood and affect. She is oriented to person, place, and time. Skin: Skin normal. Lymphadenopathy: No neck adenopathy present. No axillary adenopathy present. No inguinal adenopathy present. Breast: Right breast exhibits no mass, no nipple discharge and no tenderness. Left breast exhibits no mass, no nipple discharge and no tenderness. Breasts are symmetrical. Rectal: External hemorrhoid palpated or inspected. External genitalia: Normal external genitalia appropriate for age. Normal hair distribution. No labial lesion. Urethral meatus: Normal urethral meatus Urethra: Normal urethra. Bladder: Normal bladder Vagina:No lesion inspected. Normal support. No abnormal vaginal discharge found. No lesions in the vagina. Cervix: Cervix absent. Uterus: Uterus absent. Adnexa: Right adnexa without tenderness, ovary enlargement or mass. Left adnexa without tenderness, ovary enlargement or mass. NH examination confirms no adnexal masses. Assessment/Plan Encounter for well woman exam with routine gynecological exam (primary encounter diagnosis) Reviewed and encouraged good nutrition, regular exercise, use of sunscreen, awareness of her breasts, routine annuals and mammograms. Also age appropriate vaccinations and screening labs were discussed. Colonoscopy after age of 50 and DEXA scan after 65. Bone health-adequate Vit D and calcium with weight bearing exercise.Explained that although she no longer needs a papsmear, it is recommended and I encourage her to continue yearly WWE Screening mammogram, encounter for Comment: Strongly recommend rescheduling her mammogram. Encounter for screening colonoscopy Reviewed the options for colon cancer screening. sigmoidoscopy every 5 years, colonoscopy (gold standard) every 10 years, FOBT yearly, stool DNA. Patient always has a colonoscopy scheduled for later inthe month This visit did not involve counseling and coordination that comprised more than 50% of the visit time. Celia Urbina MD documented in this encounter Plan of Treatment Date Type Specialty Care Team Description 02/07/2020 Laboratory Only Family Medicine Vivian Gould MD [address] [facility] [address] [place] [address] [phone] Lab, Adc Fam Pob I 02/09/2020 Hospital Encounter Surgery Vivian Gould Enco unter for screening 2240 [facility] colonoscop y South Hair 2.[address] [place] [address] [phone] 02/09/2020 Anesthesia Event Surgery Santo Mahajan, LYE PEEL OPERATOR [address] [place] [address] [phone] 02/09/2020 Surgery Surgery Vivian Gould, COLONOSCOP Y 2240 [facility] [address] [place] [address] [phone] 02/23/2020 Appointment Echocardiograph Pc, [facility] Stress Room 1 - 02/27/2020 Office Visit Cardiology Montserrat Dangelo MD [address] [place] [address] DR ARNDT [address] [place] [address] [phone] 04/05/2020 Office Visit Family Medicine Rema Moreno MD [address] [place] [address] [phone] 04/16/2020 Office Visit Cardiology Montserrat Dangelo MD [address] [place] [address] DR ARNDT [address] [place] [phone] 02/04/2021 Office Visit Obstetrics & Adum, Celia Mulligan, Gynecology [address] [place] [address] Dr. Arndt [address] [place] [address] Health Maintenance Due Date Last Done Comments [...] COMBINED SERIES (1 of 1 - (Alter [place] Guidelines) PPSV23) Zoster Recombinant Vaccine 02/24/2020 Postp oned from 2018 (SHINGRIX) (1 of 2) (Alternative Guidelines) Depression Screening 11/23/2020 11/24/2019, 11/24/2019 documented as of this encounter Results Not on filedocumented in this encounter Visit Diagnoses Diagnosis Encounter for screening colonoscopy - Pr imary Special screening for malignant neoplasm s, colon Encounter for well woman exam with santana fam gynecological exam - Primary Screening mammogram, encounter for Encounter for screening colonoscopy Special screening for malignant neoplasm s, colon Encounter for screening colonoscopy Special screening for malignant neoplasm s, colon documented in this encounter Insurance Payer Benefit Plan / Subscriber ID Effective Dates Phone Addre ss Type Group [facility] [id number] [facility] PPO t S documented as of this encounter
--- OUTSIDE RECORDS SUMMARY | 2020-03-17 18:26 | XMS REPORT | Summary of Care ---
:1970 Author Organization [facility] Address [address] [place] [address] Care Team Providers Name Role Phone Kenzie Moreno MD Primary Care Provider Reason for Visit Reason Comments Assessment Encounter Details Date Type Department Care Team Description 02/06/2020 Telephone [facility] and Rema Og MD Assessment Adult Primary Care- [address] [place] [address] [place] [address], [address] [place] [address] Allergies No Known Allergiesdocumented as of this encounter (statuses as of 02/06/2020) Medications Medication Sig Dispensed Refills Start Date [...] as of this encounter (statuses as of 02/06/2020) Active Problems Problem Noted Date Fatty liver 01/19/2020 Encounter for screening colonoscopy 01/12/2020 Overview: Added automatically from request for jacobo carr [id number] Screening for colorectal cancer 12/26/2019 Overview: Added automatically from request for jacobo carr [id number] Abnormal LFTs 12/01/2019 Mixed hyperlipidemia 12/01/2019 Abnormal EKG 11/25/2019 Tobacco dependence 11/24/2019 Obesity (BMI 30-39.9) 06/11/2016 HTN (hypertension) Anxiety and depression documented as of this encounter (statuses as of 02/06/2020) Social History Tobacco Use Types Packs/Day Years [...] this encounter Miscellaneous Notes Telephone Encounter - Sharla Casanova - 02/06/2020 1:08 PM CDTVisit summary from Dr. Kerr placed in nurse box documented in this encounter Plan of Treatment Date Type Specialty Care Team Description 02/07/2020 Laboratory Only Family Medicine Vivian Gould MD [address] [place] [address] 2.[address] [place], [place] 6[address] Lab, Adc Fam Pob I 02/09/2020 Hospital Encounter Surgery Vivian Gould Enco unter for screening [address] [place] [address] colonoscop y [facility] 2.[address] [place], [place] 988583 02/09/2020 Anesthesia Event Surgery Santo Mahajan, [address] [address] [phone] 02/09/2020 Surgery Surgery Vivian Gould, COLONOSCOP Y [address] [place] [address] 2.[address] [place] [address] [phone] 02/23/2020 Appointment Echocardiograph Pc, [facility] Stress Room 1 - 02/27/2020 Office Visit Cardiology Montserrat Dangelo MD [address] [facility] [address] ARNDT [address] [place] [phone] 04/05/2020 Office Visit Family Medicine Rema Moreno MD [address] [place] [phone] 04/16/2020 Office Visit Cardiology oMntserrat Dangelo MD [address] [facility] [address] ARNDT [address] [place] [phone] 02/04/2021 Office Visit Obstetrics & Adum, Celia Mulligan Gynecology [address] [place] [address] Dr. Arndt [address] [place] [address] Health Maintenance Due Date Last Done [...] COMBINED SERIES (1 of 1 - (Alter [place] Guidelines) PPSV23) Zoster Recombinant Vaccine 02/24/2020 Postp oned from 2018 (SHINGRIX) (1 of 2) (Alternative Guidelines) Depression Screening 11/23/2020 11/24/2019, 11/24/2019 documented as of this encounter Results Not on filedocumented in this encounter Insurance Payer Benefit Plan / Subscriber ID Effective Dates Phone Addre ss Type Group [facility] [id number] 2019-[employer] H[employer]/ PPO/[facility] PPO t S documented as of this encounter
--- OUTSIDE RECORDS SUMMARY | 2020-03-17 18:26 | XMS REPORT | Summary of Care ---
:1970 Author Organization [facility] Address [address] [place] [address] Care Team Providers Name Role Phone Kenzie Moreno MD Primary Care Provider Reason for Visit Reason Comments Well Woman Exam (Routine) Status Reason Specialty Diagnoses / Referred By Referred To Procedures Contact Contact Closed Obstetrics & Diagnoses Referral of patient Rema Moreno Vivian L, Gynecology Procedures CONSULT/REFERRAL STEAM SHOVEL RUNNER MD WILLIAM Espino [address] [place] [phone] Hair [address] Phone: [place], [place] [phone] [address] Encounter Details Date Type Department Care Team Description 02/03/2020 Office Visit [facility] Celia Urbina MD Encounter for well woman exam with santana fam gynecological exam (Primary Dx); Healthcare- [address] Screening mammogram, encount er for; [address] [place] [address] Encounter for screening colonoscopy Drive, [address] [place] [address] Allergies No Known Allergiesdocumented [...] Added automatically from request for jacobo carr [id number] Screening for colorectal cancer 12/26/2019 Overview: Added automatically from request for jacobo lilly [id number] Abnormal LFTs 12/01/2019 Mixed hyperlipidemia 12/01/2019 Abnormal [...] This exam may be done by a cryogenics repairer, family healthcare provider, nurse practitioner, nurse infertility medical assistant, or specially trained nurse. Yearly breast exams [...] Guidelines for having clinical breast exams The [employer] College of Obstetricians and Gynecologists recommends that [...] provider about what is best for you. [employer] dinorah reviewed this educational content on 01/09/201719996848-9489 The [employer]. [address] [place] [address], [place] [address]. All rights reserved. This information is not [...] breast self-examination (BSE). These experts include the [employer] Cancer Society and the [employer] Congress of Obstetricians and Gynecologists. Some experts [...] benign. This means they are not cancer. [employer] last reviewed this educational content on 01/09/201719991012-7925 The [employer]. [address] [place] [address], [place] [address]. All rights reserved. This information is not [...] carcinoma, endocervical adenocarcinoma in situ, or adenocarcinoma.) [employer] last reviewed this educational content on 01/09/201719994062-0015 [employer], [employer]. [address] [place] [address]. All rights reserved. This information is not [...] in this age group Every exam 1 Canadian Cancer Society [employer] last reviewed this educational content on 07/06/201519994650-8634 The [employer]. [address] [place] [address]. All rights reserved. This information is not [...] today by ENT specialist, Dr Kerr in [place], and was found to have a large [...] file Gets together: Not on file Attends christian service: Not on file Active member of [...] adnexa without tenderness, ovary enlargement or mass. [place] examination confirms no adnexal masses. Assessment/Plan Encounter [...] than 50% of the visit time. Celia Uribna MD documented in this encounter Plan of Treatment Date Type Specialty Care Team Description 02/07/2020 Laboratory Only Family Medicine Vivian Gould MD 2240 [facility] [place] [address] [place] [address] [phone] Lab, Adc Fam Pob I 02/09/2020 Hospital Encounter Surgery Vivian Gould Enco unter for screening 2[address] [facility] colonoscop y [place] [address] [place] [address] [phone] 02/09/2020 Anesthesia Event Surgery Santo Mahajan, DIESEL DINKEY ENGINEER [address] [place] [address] [phone] 02/09/2020 Surgery Surgery Vivian Gould, COLONOSCOP Y 2240 [facility] [address] [place] [address] [phone] 02/23/2020 Appointment Echocardiograph Pc, [facility] Stress Room 1 - 02/27/2020 Office Visit Cardiology Montserrat Dangelo MD [address] [place] [address] DR ARNDT [address] [place] [phone] 04/05/2020 Office Visit Family Medicine Rema Moreno MD [address] [place] [address] [phone] 04/16/2020 Office Visit Cardiology Montserrat Dangelo MD [address] [place] [address] DR ARNDT [address] [place] [phone] 02/04/2021 Office Visit Obstetrics & Adum, Celia Mulligan, Gynecology [address] [place] [address] Dr. Arndt [address] [place] [address] Health Maintenance Due Date Last Done [...] COMBINED SERIES (1 of 1 - (Alter [place] Guidelines) PPSV23) Zoster Recombinant Vaccine 02/24/2020 Postp [...] Effective Dates Phone Addre ss Type Group [facility] [id number] [facility] PPO t S documented as of this encounter
--- OUTSIDE RECORDS SUMMARY | 2020-03-17 18:27 | XMS REPORT | Summary of Care ---
:1970 Author Organization [facility] - Health Address [address] [place] [address] Care Team Providers Name Role Phone Kenzie Moreno MD Primary Care Provider Encounter Details Date Type Department Care Team Description 02/03/2020 Orders Only [facility] Doctor Unassigned, No 301 [facility] [place] [address] [address] [place] [phone] Allergies No Known Allergiesdocumented as of this encounter (statuses as of 02/24/2020) Medications Medication Sig Dispensed Refills Start Date [...] as of this encounter (statuses as of 02/24/2020) Active Problems Problem Noted Date Fatty liver 01/19/2020 Encounter for screening colonoscopy 01/12/2020 Overview: Added automatically from request for jacobo carr [id number] Screening for colorectal cancer 12/26/2019 Overview: Added automatically from request for jacobo carr [id number] Abnormal LFTs 12/01/2019 Mixed hyperlipidemia 12/01/2019 Abnormal EKG 11/25/2019 Tobacco dependence 11/24/2019 Obesity (BMI 30-39.9) 06/11/2016 HTN (hypertension) Anxiety and depression documented as of this encounter (statuses as of 02/24/2020) Social History Tobacco Use Types Packs/Day Years Used Date Current Every Day Smoker Cigarettes 1 15 Smokeless Tobacco: Never Used Alcohol Use Drinks/Week oz/Week Comments Not Currently Sex Assigned at Date Recorded Not on file COVID-19 Exposure Response Date Recorded In the last month, have you been in contact with No / Unsure 02/23/2020 1:18 PM CDT someone who was confirmed or suspected to have Coronavirus / COVID-19? documented as of this encounter Last Filed Vital Signs Not on filedocumented in this encounter Plan of Treatment Date Type Specialty Care Team Description 02/27/2020 Office Visit Cardiology Montserrat Dangelo MD [address] [facility] [address] ARNDT [address] [place] [address] [phone] 03/22/2020 Office Visit Surgery Vivian Gould MD 2240 [facility] 2.[address] [place] [address] [phone] 04/05/2020 Office Visit Family Medicine Marilu Moreno MD [address] [place] [phone] 04/16/2020 Office Visit Cardiology Montserrat Dangelo MD [address] [place] [address] DR ARNDT [address] [place] [address] [phone] 02/04/2021 Office Visit Obstetrics & Gynecology Gertrude Urbina MD [address] [place] [address] Dr. Arndt [address] [place] [address] 15-1500 Health Maintenance Due Date Last Done Comments PAP SMEAR 1989 Breast Cancer Screening 2008 (MAMMOGRAM) COLON CANCER SCREENING ANNUAL 2018 FIT/FOBT COLON CANCER SCREENING FIT 2018 DNA EVERY 3 YEARS COLON CANCER SCREENING 2018 SIGMOIDOSCOPY EVERY 5 YEARS INFLUENZA VACCINE (#1) 2020 DTaP,Tdap,and Td Vaccines (1 02/24/2020 Pos tponed from 09/19/1987 - Tdap) (Alternative Edil delines) PNEUMOCOCCAL 0-64 YEARS 02/24/2020 Postpone d from 1974 COMBINED SERIES (1 of 1 - (Alter [place] Guidelines) PPSV23) Zoster Recombinant Vaccine 02/24/2020 Postp oned from 2018 (SHINGRIX) (1 of 2) (Alternative Guidelines) Depression Screening 02/08/2021 02/09/2020, 11/24/2019 COLONOSCOPY 02/08/2030 02/09/2020 Colorectal Cancer Screening 02/08/2030 documented as of this encounter Procedures Procedure Name Priority Date/Time Associated Diagnosis Comme nts REFERRAL- Routine 02/03/2020 12:01 AM CDT REQUEST/RESPONSE documented in this encounter Results Not on filedocumented in this encounter Additional Health Concerns Infection Onset Date Last Indicated Resolved Time COVID-19 Rule Out 02/07/2020 02/07/2020 02/07/2020 2: 40 PM CDT documented as of this encounter Insurance Payer Benefit Plan / Subscriber ID Effective Dates Phone Addre ss Type Group [facility] [id number] 2019-[place] HMO/ PPO/[facility] PPO t S documented as of this encounter
--- OUTSIDE RECORDS SUMMARY | 2020-03-17 18:27 | XMS REPORT | Summary of Care ---
:1970 Author Organization [facility] Address [address] [place] [address] Care Team Providers Name Role Phone Kenzie Moreno MD Primary Care Provider Reason for Visit Reason Comments Results Encounter Details Date Type Department Care Team Description 02/07/2020 Telephone [facility] Gracy Peralta FNP Results [address] [address] [address] [place] [address] Allergies No Known Allergiesdocumented as of this [...] Added automatically from request for jacobo carr [id number] Screening for colorectal cancer 12/26/2019 Overview: Added automatically from request for jacobo carr [id number] Abnormal LFTs 12/01/2019 Mixed hyperlipidemia 12/01/2019 Abnormal [...] this encounter Miscellaneous Notes Telephone Encounter - Evelina Heller LVN - 02/07/2020 4:17 PM CDTPatient informed of negative Covid 19 test result and all precautions listed below. Patient thankfulfor call and verbalized understanding. EVELINA HELLER LVN Your COVID 19 testing results were negative. At this time, the COVID 19 virus was NOT found in your sample. Continue to protect yourself by wearing a facemask and washing your hands frequently. If youhave not had symptoms, you may return to work immediately. If you had symptoms, you may return to work or school when you are feeling better and have not had a fever for 24 hours or more without takingfever reducing medications such as acetaminophen or ibuprofen and are 10 days from your first symptoms. Wear a mask until it has been greater than 14 days from when your first symptoms appeared. If you are a [facility] or contract employee or student, please refer to this website for more information https: [email or web address]. If you feel you are not getting better, please call the [facility] at [phone] or toll free to schedule a telehealth visit or face to face visit with a provider. Most acute illnesses resolve within 7 days. documented in this encounter Plan of Treatment Date Type Specialty Care Team Description 02/09/2020 Hospital Encounter Surgery Vivian Gould Enco unter for MD screening 2240 [facility] colonoscop y [facility] [address] [place] [address] [phone] 02/09/2020 Anesthesia Event Surgery Santo Mahajan, [address] [phone] 02/09/2020 Surgery Surgery Vivian Gould, COLONOSCOP Y MD 2240 [facility] [address] [place], [place] [address] 02/23/2020 Appointment Echocardiograph Pc, [facility] Stress Room 1 - 02/27/2020 Office Visit Cardiology Montserrat Dangelo MD [address] [facility] [address] ARNDT [address] [place] [phone] 04/05/2020 Office Visit Family Medicine Rema Moreno MD [address] [place] [address] 04/16/2020 Office Visit Cardiology Montserrat Dangelo MD [address] [facility] [address] ARNDT [address] [place] [phone] 02/04/2021 Office Visit Obstetrics & Adum, Celia Mulligan Gynecology [facility] Dr. Arndt [address] [place] [address] Health Maintenance Due Date Last Done [...] COMBINED SERIES (1 of 1 - (Alter [place] Guidelines) PPSV23) Zoster Recombinant Vaccine 02/24/2020 Postp [...] Phone Addre ss Type Group [facility] [id number] 2019-[employer] HMO/ PPO/[facility] PPO t S documented as of this encounter
--- OUTSIDE RECORDS SUMMARY | 2020-03-17 18:27 | XMS REPORT | Summary of Care ---
:1970 Author Organization [facility] - Health Address [address] [place] [address] Care Team Providers Name Role Phone Kenzie Moreno MD Primary Care Provider Encounter Details Date Type Department Care Team Description 02/09/2020 Orders Only [facility] Doctor Unassigned, No 301 [facility] [place] [address] [address] [place] [phone] Allergies No Known Allergiesdocumented as of this encounter (statuses as of 02/09/2020) Medications Medication Sig Dispensed Refills Start Date [...] as of this encounter (statuses as of 02/09/2020) Active Problems Problem Noted Date Fatty liver 01/19/2020 Encounter for screening colonoscopy 01/12/2020 Overview: Added automatically from request for jacobo carr [id number] Screening for colorectal cancer 12/26/2019 Overview: Added automatically from request for jacobo carr [id number] Abnormal LFTs 12/01/2019 Mixed hyperlipidemia 12/01/2019 Abnormal EKG 11/25/2019 Tobacco dependence 11/24/2019 Obesity (BMI 30-39.9) 06/11/2016 HTN (hypertension) Anxiety and depression documented as of this encounter (statuses as of 02/09/2020) Social History Tobacco Use Types Packs/Day Years [...] Treatment Date Type Specialty Care Team Description 02/23/2020 Appointment Echocardiograph Pc, [facility] Stress Room 1 - 02/27/2020 Office Visit Cardiology Montserrat Dangelo MD [address] [place] [address] DR ARNDT [address] [place] [phone] 03/22/2020 Office Visit Surgery Vivian Gould MD 2240 [facility] [address] [place] [address] [phone] 04/05/2020 Office Visit Family Medicine Marilu Moreno MD [address] [place] [address] [phone] 04/16/2020 Office Visit Cardiology Montserrat Dangelo MD [address] [place] [address] DR ARNDT [address] [place] [address] [phone] 02/04/2021 Office Visit Obstetrics & Gynecology Gertrude Urbina MD [address] [place] [address] Dr. Arndt [address] [place] [address] [phone] Health Maintenance Due Date Last Done Comments [...] COMBINED SERIES (1 of 1 - (Alter [place] Guidelines) PPSV23) Zoster Recombinant Vaccine 02/24/2020 Postp oned from 2018 (SHINGRIX) (1 of 2) (Alternative Guidelines) Depression Screening 02/08/2021 02/09/2020, 11/24/2019 documented as of this encounter Procedures Procedure Name Priority Date/Time Associated Diagnosis Comme nts SURGERY - ADC Routine 02/09/2020 12:01 AM CDT documented in this encounter Results Not on filedocumented in this encounter Insurance Payer Benefit Plan / Subscriber ID Effective Dates Phone Addre ss Type Group [facility] [id number] 2019-[facility] HMO/ PPO/[facility] PPO t S documented as of this encounter
--- OUTSIDE RECORDS SUMMARY | 2020-03-17 18:27 | XMS REPORT | Summary of Care ---
:1970 Author Organization [facility] Address [address] [place] [address] Care Team Providers Name Role Phone Kenzie Moreno MD Primary Care Provider Reason for Referral (Routine) Status Reason Specialty Diagnoses / Referred By Referred To Procedures Contact Contact New Request MISTY-SURGERY Diagnoses Encounter for screening colonoscopy Vivian Gould Procedures Discharge Follow-Up: Specialty Service MISTY-SURGERY; 4-[address] [place] [address] [address] [place] [address] Reason for Visit Auth/Cert Status Reason Specialty Diagnoses / Procedures Referred By Ariana harrell Referred To Contact Surgery Diagnoses Encounter for screening for malignant neoplasm of colon Encounter for screening colonoscopy [Z12.11] Adc Pre/P acu/Post Procedures [place] COLONOSCOPY W/BIOPSY SINGLE/MULTIPLE COLONOSCOPY 17201 - [place] COLONOSCOPY W/BIOPSY SINGLE/MULTIPLE [address] [place] [address] 7 [phone] Phone: Fax: Encounter Details Date Type Department Care Team Description 02/09/2020 Hospital Encounter [facility] Monica [facility] MD Vivian screening [address] [place] [address] [place] [address] [address] [place] [address] [phone] Allergies No Known Allergiesdocumented as of this [...] 01/12/2020 Overview: Added automatically from request for misty lilly [id number] Screening for colorectal cancer 12/26/2019 Overview: Added automatically from request for misty lilly [id number] Abnormal LFTs 12/01/2019 Mixed hyperlipidemia 12/01/2019 Abnormal [...] Sign Reading Time Taken Comments Blood Pressure 132/74 02/09/2020 12:40 PM CDT Pulse 68 02/09/2020 12:40 PM CDT Temperature 37.1 C (98.7 F) 02/09/2020 12:12 PM CDT Respiratory Rate 25 02/09/2020 12:27 PM CDT Oxygen Saturation 95% 02/09/2020 12:40 PM CDT Inhaled Oxygen Concentration - - Weight 82.1 kg (181 lb) 02/02/2020 12:09 PM CDT Height 160 cm (5' 2.99") 02/02/2020 12:09 PM CDT Body Mass Index 32.07 02/02/2020 12:09 PM CDT documented in this encounter Discharge Instructions Kitty Robert RN - 02/09/2020 Patient Discharge Instructions Discharge date: 02/09/2020 Procedure(s): Procedure(s): COLONOSCOPY Discharge Orders Regular Diet; Texture: Regular. Texture Regular. Diabetic: No Discharge Condition - Discharge Condition: GOOD Discharge Activity Discharge Activity: As Tolerated Discharge Follow-Up: Specialty Service MISTY-SURGERY; 4-6 Weeks Order Comments: Discuss hemorrhoidectomy Specialty: MISTY-SURGERY [11] Patient's Preferred Location: [facility] Discharge Disposition: HOME, (AHR) When (Patients with risk for unplanned readmission score over 16 or those noted as Hospital Dependent should follow up within 7 days with PCP or primary DX specialist): 4-6 Weeks VTE Pharmacological Prophylaxis Contrainidicated; not ordered during hospitalization Follow instructions as indicated below: 1. The medication that was used will be acting in your system for the next 24 hours, so you might feel a little drowsy, with impaired judgment and or motor function. This feeling should go wear off. Because the medication is still in your system for the next 24 hours you SHOULD NOT: Drive a car, operate machinery or power tool. Drink any alcohol beverages (including beer or wine). Make any important decisions or sign any legal documents. 2. You should rest the remainder of the day and not engage in any physical activity. Move slowly today. After lying down, sit on the edge of the bed for a moment before standing. YOU ARE RESPONSIBLEFOR HAVING SOMEONE AT HOME WITH YOU DURING THE AFTERNOON AND NIGHT IMMEDIATELY FOLLOWING YOUR SURGERY. Patient should cough and deep breathe every 2-4 hours while awake to avoid respiratory complications. 4. Lifting: {IP DISCHARGE INSTRUCTIONS LIFTIN::"No medical restrictions"} 5. Weight: In general, sudden weight gains or losses should be reported to your provider. Cardiac patients should weigh daily and notify their provider for a weight gain of 3 pounds per day or 5 pounds per week. 6. Tobacco Avoidance: Follow recommendations below 7. Because the medications used could procedure some residual nausea and vomiting after you go home,you should eat lightly today, starting with clear liquids (broth, soft drinks, apple juice, jello) and toast or crackers, progressing to bland solid foods and then to your normal diet as tolerated, unle ss otherwise stated by your surgeon. If you get sick, wait a couple of hours and then begin to eat. After 24 hours the nausea should be gone. 8. You may experience some pain and your physician will advise you on what to take for discomfort. This should be taken as directed. If the pain is not relieved, contact your physician. You may alsohave a sore throat from the airway that was in place. You may uses lozenges, throat spray (such as C hloraseptic), or warm salt water gargles for symptomatic relief. 9. If you feel warm, take your temperature. If it is 101 degrees or above call your physician. 10. If you are unable to urinate within five hours after your procedure, call your physician. 11. The type of surgery performed will determine how much bleeding (if any) to expect. Normally, some spotting might occur. If your dressing pad becomes saturated, notify your physician. Elevate surgical site, if applicable, to reduced swelling and pain. 12. Wound/dressing care: Tips on preventing a surgical site infection.. Dont smoke. It is best to quit at least 30 days before surgery, but quitting after surgery is also helpful. If you are diabetic, keep your blood sugar well controlled. WASH YOUR HANDS. Keep your wound clean and remember to wash your hands before and after contact with the area. All health care workers should also wash their hands or use an alcohol based hand rub prior to examining you. If antibiotics are prescribed, take them as directed. Finish the entire course of antibiotics. Call your doctor if you have signs of infection: ? Increased tenderness at the surgical site ? Red streaks or increased redness of the area ? Bad-smelling discharge from the incision ? Fever of 101F or higher ? General tired feeling that doesnt improve 13. Other discharge instructions: {DC IP DISCHARGE INSTRUCTIONS OTHER:38462} 14. Special Instructions: Take Home Medications These are medications ordered for you by your healthcare provider. Do not take any other medications or supplements unless advised by your healthcare provider. Current Discharge Medication List CONTINUE these medications which have NOT CHANGED Details telmisartan 40 mg tablet Take 0.5 tablets by mouth daily. Qty: 30 tablet, Refills: 5 Associated Diagnoses: Essential hypertension peg-electrolyte soln 236-22.74-6.74 -5.86 gram solution Take 4,000 mL by mouth SEE-INSTRUCTIONS. Take as directed Qty: 4000 mL, Refills: 0 Associated Diagnoses: Screening for colorectal cancer calcipotriene (DOVONEX) 0.005 % cream Apply to area(s) 2 (two) times daily. Qty: 60 g, Refills: 2 Associated Diagnoses: Psoriasis citalopram 10 mg tablet Take 1 tablet by mouth daily. Qty: 30 tablet, Refills: 2 Associated Diagnoses: Anxiety and depression Follow-up appointments: Your follow up appointment with your surgeon has been made. Appointment Date: , Appointment Time . For questions regarding follow-up instructions call the [facility] Hotline at or If you experience any of the following symptoms , please follow up with . For worsening symptoms/changing condition/problems or questions: Non-emergency/urgent: Call the [facility] Hotline at or or Emergency: Go to the closest emergency room or call 625 Translated by Date Time If you receive the patient satisfaction survey by mail please complete and return and let us know how we are doing. TOBACCO AVOIDANCE Exposure to tobacco either from smoking or from second hand (environmental) smoke or smokeless tobacco (snuff) is damaging to your health. This information is to encourage everyone to avoid tobacco exposure. It is recommended that you: ? If you smoke or use smokeless tobacco, we encourage you to quit. ? If you have already quit smoking, continue your good work! ? If you do not smoke or use smokeless tobacco, do not start. ? Avoid secondhand smoke. Additional Resources You may want to contact these organizations for further information on smoking and how to quit. [place] [employer], http://www.lungusa.org/stop-smoking/ [place] [employer], http://www.cancer.org/Healthy/StayAwayfromTobacco/index [place] Heart Association, http://www.heart.org/HEARTORG/GettingHealthy/QuitSmoking/Quit-Smoking_[facility] _001085_SubHomePage.jsp AttachmentsThe following attachments cannot be sent through Care Everywhere. Colonoscopy (Venezuelan)documented in this encounter H&P Notes Opal Bustillo MD - 02/09/2020 11:28 AM CDT HISTORY AND PHYSICAL Date of Service: 02/09/20 Attending: Dr Gould Chief Complaint: screening colonoscopy HPI Zoya Rowell is a 49 year old female with PMHx as below who presents to discuss screening colonoscopy. She has not had a colonoscopy before. She reports having a daily BM with occasional constipation. She reports external hemorrhoids which developed during her last . She notes occasionalblood in the stool with constipation and straining. She denies abdominal pain, nausea, vomiting, change in appetite, unintentional weight loss, change in bowel habits, or family history of colon cancer, Crohn's Disease, or ulcerative colitis. Patient was prescribed medications however she is not currently taking anything. HOME MEDICATIONS Medications Prior to Admission Medication Sig Dispense Refill Last Dose telmisartan 40 mg tablet Take 0.5 tablets by mouth daily. 30 tablet 5 Taking peg-electrolyte soln 236-22.74-6.74 -5.86 gram solution Take 4,000 mL by mouth SEE-INSTRUCTIONS.Take as directed 4000 mL 0 Not Taking calcipotriene (DOVONEX) 0.005 % cream Apply to area(s) 2 (two) times daily. 60 g 2 Not Taking citalopram 10 mg tablet Take 1 tablet by mouth daily. 30 tablet 2 Taking REVIEW OF SYSTEMS (-)=Negative,(+)=Positive Constitutional: Fever, chills, loss of appetite, fatigue, [...] othopnea, claudication, edema, coronary artery disease/history of [place] Respiratory: Cough, sputum production, hemoptysis, wheezing, shortness [...] hallucinations, anxiety, self-injury, sleep disturbance, suicidal ideation HISTORIES Past Medical History: Diagnosis Date Abnormal EKG 11/25/2019 Anxiety and depression Benign tumor of throat 2019 Cardiac arrest during delivery of child Fatty liver 01/19/2020 HTN (hypertension) Hypercholesterolemia Mixed hyperlipidemia 12/01/2019 Peptic ulcer disease Past Surgical History: Procedure Laterality Date BLADDER NECK CLOSURE SECTION HYSTERECTOMY TONSILLECTOMY 1980 TUBAL LIGATION Family History Problem Relation Age of Onset Hemochromatosis Brother Diabetes Brother High cholesterol Brother Allergies Brother Diabetes Mother Hypertension Mother COPD (chronic obstructive pulmonary disease) Mother Autoimmune other Mother Lupus Stroke Father Diabetes Father Hypertension Father Social History Socioeconomic History Marital status: Spouse [...] file Gets together: Not on file Attends oriental orthodox service: Not on file Active member of [...] file Social History Narrative Lives 3 dogs PHYSICAL EXAM (-)=Negative,(+)=Positive BP 131/78 | Pulse 83 | Resp 20 | Ht 1.6 m (5' 2.99") | Wt 82.1 kg (181 lb) | SpO2 95% | BMI 32.07 kg/m Constitutional: Awake, alert, oriented, in no acute [...] no obvious deficits of insight or judgment ASSESSMENT/PLAN Zoya Rowell is a 49 year old female who presents for screening colonoscopy. Plan: Colonoscopy today Discussed patient with Dr. Luis Fernando Armstrong MD General Surgery. PGY2 Associated attestation - Vivian Gould MD - 02/09/2020 11:35 AM CDTAttending Attestation: I personally evaluated and examined the patient on 02/09/[address] Armstrong's note as written. I actively participated in the decision-making process. Please see the resident's note for additional details. Patient completed bowel preparation, proceed with colonoscopy. Vivian Gould M.D. 02/09/2020 11:34documented in this encounter Plan of Treatment Date Type Specialty Care Team Description 02/23/2020 Appointment Echocardiograph Pc, Clc-Bls Stress Room 1 - 02/27/2020 Office Visit Cardiology Montserrat Dangelo MD [address] [facility] [address] ARNDT [address] [place] [address] [phone] 03/22/2020 Office Visit Surgery Vivian Gould MD [address] [facility] [address] [place] [address] [phone] 04/05/2020 Office Visit Family Medicine Marilu Moreno MD [address] [place] [address] [phone] 04/16/2020 Office Visit Cardiology Montserrat Dangelo MD [address] [facility] [address] AR[place]T [address] [place] [address] [phone] 02/04/2021 Office Visit Obstetrics & Gynecology Gertrude Urbina MD [address] [place] [address] Dr. Arndt [address] [place] [address] [phone] Health Maintenance Due Date Last Done [...] COMBINED SERIES (1 of 1 - (Alter [place] Guidelines) PPSV23) Zoster Recombinant Vaccine 02/24/2020 Postp oned from 2018 (SHINGRIX) (1 of 2) (Alternative Guidelines) Depression Screening 02/08/2021 02/09/2020, 11/24/2019 documented as of this encounter Procedures Procedure Name Priority Date/Time Associated Diagnosis Comme nts COLONOSCOPY (ENDO) Routine 02/09/2020 11:23 AM CDT documented in this encounter Results Not on filedocumented in this encounter Visit Diagnoses Diagnosis Encounter for screening colonoscopy - Pr imary Special screening for malignant neoplasm s, colon documented in this encounter Administered Medications Medication Order MAR Action Action Date Dose Rate Site lactated ringers IV infusion 1,000 mL at 100 mL/hr, 1,000 mL, IV Infusion, CONTINUOUS, Start ing Sun02/09/20 at 1230, Until Discontinued, Routine, PACU simethicone (GAS RELIEF (SIMETHICONE)) 40 Given 02/09/2020 11:45 AM CDT 1.2 mL mg/0.6 mL drops PRN, Starting Sun02/09/20 at 1145, Until Discontinued, Routine, Intra-op water for irrigation irrigation solution Given 02/09/2020 11:46 AM CDT 1,000 mL PRN, Starting Sun02/09/20 at 1146, Until Discontinued, Routine, Intra-op documented in this encounter Insurance Payer Benefit Plan / Subscriber ID Effective Dates Phone Addre ss Type Group [facility] [id number] 2019-[facility] HMO/ PPO/[facility] PPO t S documented as of this encounter
--- OUTSIDE RECORDS SUMMARY | 2020-03-17 18:28 | XMS REPORT | Summary of Care ---
:1970 Author Organization [facility] Address [address] [place] [address] Care Team Providers Name Role Phone Kenzie Moreno MD Primary Care Provider Reason for Visit Reason Comments Follow-up cardiac clearence Encounter Details Date Type Department Care Team Description 02/27/2020 Office Visit [facility] Montserrat Dangelo Encounter for pre-operative cardiovascular clearance (Primary Dx); Cardiology- Israel Brambila MD Essential hypertension; [address] SOSA (dyspnea on exertion); Drive, [address] Atypical chest pain; [place], [place] Cigarette nicot ine dependence without complication; [phone] Dyslipidemia; [phone] Abnormal LFTs; [phone] Obesity (BMI 30 -39.9); (Fax) Stenosis of car otid artery, unspecified laterality Allergies No Known Allergiesdocumented as of this encounter (statuses as of 02/27/2020) Medications Medication Sig Dispensed Refills Start Date [...] as of this encounter (statuses as of 02/27/2020) Active Problems Problem Noted Date Fatty liver 01/19/2020 Encounter for screening colonoscopy 01/12/2020 Overview: Added automatically from request for jacobo carr [id number] Screening for colorectal cancer 12/26/2019 Overview: Added automatically from request for jacobo carr [id number] Abnormal LFTs 12/01/2019 Mixed hyperlipidemia 12/01/2019 Abnormal EKG 11/25/2019 Tobacco dependence 11/24/2019 Obesity (BMI 30-39.9) 06/11/2016 HTN (hypertension) Anxiety and depression documented as of this encounter (statuses as of 02/27/2020) Social History Tobacco Use Types Packs/Day Years Used Date Current Every Day Smoker Cigarettes 1 15 Smokeless Tobacco: Never Used Alcohol Use Drinks/Week oz/Week Comments Not Currently Sex Assigned at Date Recorded Not on file COVID-19 Exposure Response Date Recorded In the last month, have you been in contact with No / Unsure 02/27/2020 11:07 AM CDT someone who was confirmed or suspected to have Coronavirus / COVID-19? documented as of this encounter Last Filed Vital Signs Vital Sign Reading Time Taken Comments Blood Pressure 125/85 02/27/2020 11:07 AM CDT Pulse 72 02/27/2020 11:07 AM CDT Temperature - - Respiratory Rate 19 02/27/2020 11:07 AM CDT Oxygen Saturation 98% 02/27/2020 11:07 AM CDT Inhaled Oxygen Concentration - - Weight 82.1 kg (181 lb) 02/27/2020 11:07 AM CDT Height 160 cm (5' 3") 02/27/2020 11:07 AM CDT Body Mass Index 32.06 02/27/2020 11:07 AM CDT documented in this encounter Progress Notes Montserrat Dangelo MD - 02/27/2020 11:00 AM CDT [facility] Cardiology Consult Note Patient: Zoya Rowell Date of : 1970 Date of service: 01/05/2020 Primary Care Physician: Rema Moreno CHIEF COMPLAINT: Chief Complaint Patient presents with Follow-up cardiac clearence HISTORY OF PRESENT ILLNESS: Zoya Rowell is [...] Procedure Laterality Date BLADDER NECK CLOSURE SECTION COLONOSCOPY N/A 02/09/2020 Surgeon: Vivian Gould MD; Location: [facility] HYSTERECTOMY TONSILLECTOMY 1979 TUBAL LIGATION Family History Problem Relation Age [...] file Gets together: Not on file Attends gnosticism service: Not on file Active member of [...] file Social History Narrative Lives 3 dogs ALLERGIES No Known Allergies MEDICATIONS Patient's Medications [...] mouth daily., Disp: 30 tablet, Rfl: 5 citalopram 10 mg tablet, Take 1 tablet by mouth daily., Disp: 30 tablet, Rfl: 2 peg-electrolyte soln 236-22.74-6.74 -5.86 gram solution, Take 4,000 mL by mouth SEE-INSTRUCTIONS. Take as directed, Disp: 4000 mL, Rfl: 0 calcipotriene (DOVONEX) 0.005 % cream, Apply to area(s) 2 (two) times daily., Disp: 60 g, Rfl:2 REVIEW OF SYSTEMS: Comprehensive 10-system review was conducted and were negative except for what's noted in the HPI. The following systems were reviewed: Constitutional, cardiovascular, respiratory, gastrointestinal, genitourinary, musculoskeletal, neurologic, psychiatric, endocrinological, and hematological. PHYSICAL EXAMINATION: Vitals: 02/27/20 1107 BP: 125/85 BP Location: Right arm Patient Position: Sitting BP CUFF SIZE: Adult Medium Pulse: 72 Resp: 19 SpO2: 98% Weight: 181 lb (82.1 kg) Height: 5' 3" (1.6 m) General: [...] No results found for: NTBNP ASSESSMENT/PLAN 1. Encounter for pre-operative cardiovascular clearance 2. Essential hypertension 3. SOSA (dyspnea on exertion) 4. Atypical chest pain 5. Cigarette nicotine dependence without complication 6. Dyslipidemia 7. Abnormal LFTs 8. Obesity (BMI 30-39.9) 9. Stenosis of carotid artery, unspecified laterality CV risk stratification: Explained that she may proceed with throat surgery from low risk from cardiac stand point. Will Fax it to [phone] Carr. Chest pain: atypical by history but she does have sig cardiac risk factors DSE done was reviewed with her. Copy given. No recurrent chest pain noted. Continue ASA 81 mg daily. SOSA NYHA Class II: Multifactorial: Obese, HTN, diastolic dysfunction, deconditioning, smoking: Lifestyle modifications/risk facto modifications stressed. HTN: Currently on Telmisartan 20 mg daily. Home BP log recommended. Cross [...] (H) Abn LFTs: Follows PCP. Follow up with [facility] Cardiology PRN or any new cardiac symptoms noted. The 10-year ASCVD risk score (Ravindra IMAN Jr., et al., 2013) is: 7.8% Values used to calculate the score: Age: 49 years Sex: Female Is Non- : No Diabetic: No Tobacco smoker: Yes Systolic Blood Pressure: 125 mmHg Is BP treated: Yes HDL Cholesterol: 49 mg/dL Total Cholesterol: 265 mg/dL No orders of the defined types were placed in this encounter. Requested Prescriptions No prescriptions requested or ordered in this encounter Patient's diease process and its evaluation and treatment were discussed. We discussed each of for cardio vascular-related problems and discussed long-term goals and expectations for the each problem.I reviewed each of the cardiac medications in detail. The diagnostic accuracy and limitation of stress testing for identification of coronary artery disease were reviewed in detail. Reviewed the medication with patient in detail [...] in the answers given. We reviewed the [place] [employer] recommendations for reduction of overall [...] feel free to call our office at [phone]. I would be happy to be of further assistance for Zoya Rowell wellbeing. Johnny Dangelo MD Felt Machine Mechanic, Division of Cardiology [facility] [place] [place] documented in this encounter Plan of Treatment Date Type Specialty Care Team Description 03/22/2020 Office Visit Surgery Vivian Gould MD [address] [facility] [address] [place] [address] [phone] 04/05/2020 Office Visit Family Medicine Marilu Moreno MD [address] [place] [address] 04/16/2020 Office Visit Cardiology Montserrat Dangelo MD [address] [facility] [address] [place] [address] [phone] 02/04/2021 Office Visit Obstetrics & Gynecology Gertrude Urbina MD [address] [facility] [address] [place] [address] [phone] Health Maintenance Due Date Last Done Comments PNEUMOCOCCAL 0-64 YEARS COMBINED SERIES (1 1974 of 1 - PPSV23) DTaP,Tdap,and Td Vaccines (1 - Tdap) 09/19/1987 PAP SMEAR 1989 Breast Cancer Screening (MAMMOGRAM) 2008 COLON CANCER SCREENING ANNUAL FIT/FOBT 2018 COLON CANCER SCREENING FIT DNA EVERY 3 2018 YEARS COLON CANCER SCREENING SIGMOIDOSCOPY EVERY 2018 5 YEARS Zoster Recombinant Vaccine (SHINGRIX) (1 2018 of 2) INFLUENZA VACCINE (#1) 2020 Depression Screening 02/08/2021 02/09/2020, 11/24/2019 COLONOSCOPY 02/08/2030 02/09/2020 Colorectal Cancer Screening 02/08/2030 documented as of this encounter Results Not on filedocumented in this encounter Visit Diagnoses Diagnosis Encounter for pre-operative cardiovascul ar clearance - Primary Pre-operative cardiovascular examination Essential hypertension Unspecified essential hypertension SOSA (dyspnea on exertion) Other dyspnea and respiratory abnormalit y Atypical chest pain Other chest pain Cigarette nicotine dependence without co mplication Tobacco use disorder Dyslipidemia Other and unspecified hyperlipidemia Abnormal LFTs Other abnormal blood chemistry Obesity (BMI 30-39.9) Obesity, unspecified Stenosis of carotid artery, unspecified laterality documented in this encounter Insurance Payer Benefit Plan / Subscriber ID Effective Dates Phone Addre ss Type Group [facility] [id number] [facility] PPO t S documented as of this encounter
--- OUTSIDE RECORDS SUMMARY | 2020-03-17 18:28 | XMS REPORT | Summary of Care ---
:1970 Author Organization [facility] Address [address] [place] [id number] Care Team Providers Name Role Phone Kenzie Moreno MD Primary Care Provider Reason for Visit Reason Comments Follow-up cardiac clearence Encounter Details Date Type Department Care Team Description 02/27/2020 Office Visit [facility] Montserrat Dangelo Encounter for pre-operative cardiovascular clearance (Primary Dx); Cardiology- Israel Brambila MD Essential hypertension; [address] [place] (dyspnea on exertion); Drive, [address] Atypical chest pain; [place], [place] Cigarette nicot ine dependence without complication; [phone] Dyslipidemia; [phone] Abnormal LFTs; [phone] Obesity (BMI 30 -39.9); (Fax) Stenosis of [...] Added automatically from request for jacobo carr [id number] Screening for colorectal cancer 12/26/2019 Overview: Added automatically from request for jacobo carr [id number] Abnormal LFTs 12/01/2019 Mixed hyperlipidemia 12/01/2019 Abnormal [...] Dangelo MD - 02/27/2020 11:00 AM CDT [facility] Cardiology Consult Note Patient: Zoya Rowell [...] N/A 02/09/2020 Surgeon: Vivian Gould MD; [place] [facility] [place]ONSILLECTOMY 1979 TUBAL LIGATION [...] file Gets together: Not on file Attends amish service: Not on file Active member of [...] cardiac stand point. Will Fax it to [phone] Carr. Chest pain: atypical by [...] Abn LFTs: Follows PCP. Follow up with [facility] Cardiology PRN or any new cardiac [...] in the answers given. We reviewed the [place] [employer] recommendations for reduction of overall [...] feel free to call our office at [phone]. I would be happy to be of further assistance for Zoya Rowell wellbeing. Johnny Dangelo MD Optics Engineer, Division of Cardiology [facility] documented in this encounter Plan of Treatment Date Type Specialty Care Team Description 03/22/2020 Office Visit Surgery Vivian Gould MD [address] [facility] [address] [place] [address] [phone] 04/05/2020 Office Visit Family Medicine Marilu Moreno MD [address] [place] [address] 04/16/2020 Office Visit Cardiology Montserrat Dangelo MD [address] [place] [phone] 02/04/2021 Office Visit Obstetrics & Gynecology Gertrude Urbina MD [address] [place] [phone] Health Maintenance Due Date Last Done [...] Phone Addre ss Type Group [id number] [facility] P[facility] t S documented as of this encounter
== END 2020-03-12 12:45 | disposition home or self-care (01) ==
LOC: OR 07:00
PROVIDERS: ATTEND Otolaryngology
PROC: 0CU Mouth and Throat, Supplement (ICD-10-PCS; 2020-03-12)
PROC: 0CBT8ZZ Excision of Right Vocal Cord, Via Natural or Artificial Opening Endoscopic (ICD-10-PCS; principal; 2020-03-12 08:15)
DX: J38.1 Polyp of vocal cord and larynx (principal); I10 Essential (primary) hypertension; F41.9 Anxiety disorder, unspecified; F17.210 Nicotine dependence, cigarettes, uncomplicated; Z20.828 Contact with and (suspected) exposure to other viral communicable diseases
CPT/HCPCS: 88305; 31545; U0002; J2704; J0171; J2550; J2250; J3010; J1100; J7120; J2405